=== PATIENT | male | born 1955 | race Caucasian/White ===

== ENCOUNTER → 2016-11-19 | Outpatient (CLI) | payer OTHER ==
[~2016-11-19] MED LIST: ALLO100T PO; ASPI81TA85 PO; CENT1TAB PO; DITR1TAB PO; FELO10TA PO; FISH5CAP PO; HYDR-3713 PO; LEVO50TA5 PO; LOSA100T37 PO; MAGN250T3 PO; PERC5TAB6 PO; SIMV10TA2 PO; TUMS500C PO; VITA-115 PO
--- NOTE | 2016-11-19 16:55 | REP ---
KUB: Single view: History: Kidney stones. Findings: There is a triangular 15 mm calculus projecting at the lower pole of the right kidney. A 4 mm calculus is seen projecting at the lower pole of the left kidney. These findings are unchanged. On the previous exam from 05/15/2016 there was a right ureteral stent. This has been removed. Psoas margins are intact. Bowel gas pattern is normal. Impression: Bilateral intrarenal nephrolithiasis. This includes a large triangular 15 mm calculus in the lower pole of the right kidney. Signed by Charly Schmidt MD 11/20/2016 08:16 A
== END ==
LOC: M SMT 15:31
PROVIDERS: ATTEND Urology
DX: N20.0 Calculus of kidney (principal)

== ENCOUNTER → 2017-02-11 | Outpatient (CLI) | payer OTHER ==
[~2017-02-11] MED LIST changes: +COUM2.5T17 PO; -LOSA100T37 PO; +LOSA100T5 PO; +METF500T13 PO; +PERC5TAB12 PO; -PERC5TAB6 PO; +WARF-23
[2017-02-11 10:02] LABS: INR 0.88; MEAN CORPUSCULAR HEMOGLOBIN 32.6 pg (27.0-33.0); MEAN CORPUSCULAR HGB CONC 36.1 g/dl (32.0-36.5); MEAN CORPUSCULAR VOLUME 90.3 fl (80.0-96.0); RED CELL DISTRIBUTION WIDTH 12.7 % (11.5-14.5); WHITE BLOOD COUNT 5.1 K/mm3 (4.0-10.0)
[2017-02-11 10:22] LABS: ALBUMIN 4.7 GM/DL (3.2-5.2); ALBUMIN/GLOBULIN RATIO 1.62 (1.00-1.93); ALKALINE PHOSPHATASE 103 U/L (45-117); ALT/SGPT 54 U/L (12-78); ANION GAP 13 MEQ/L (8-16); AST/SGOT 45 U/L (15-37); BILIRUBIN,TOTAL 0.9 MG/DL (0.2-1.0); BLOOD UREA NITROGEN 26 MG/DL (7-18); CALCIUM LEVEL 9.5 MG/DL (8.8-10.2); CARBON DIOXIDE LEVEL 25 MEQ/L (21-32); CHLORIDE LEVEL 101 MEQ/L (98-107); CREATININE FOR GFR 1.11 MG/DL (0.70-1.30); GLOMERULAR FILTRATION RATE > 60.0 (>49); GLUCOSE, FASTING 210 MG/DL (80-110); POTASSIUM SERUM 3.6 MEQ/L (3.5-5.1); SODIUM LEVEL 139 MEQ/L (136-145); TOTAL PROTEIN 7.6 GM/DL (6.4-8.2)
--- NOTE | 2017-02-11 10:59 | REP ---
PA and lateral chest: Comparison is 04/12/2016. The lung aguilera are clear. The cardiac size is normal The elizabeth, mediastinum, and bony thorax are unremarkable. Impression: Negative PA and lateral chest. There is no significant interval change. Signed by Daniel Boone MD 02/11/2017 10:50 A
--- NOTE | 2017-02-13 21:34 | ECGEPIP ---
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
== END ==
LOC: M ADMPAT 08:40
PROVIDERS: ATTEND Orthopaedic Surgery
DX: Z01.818 Encounter for other preprocedural examination (principal); M17.11 Unilateral primary osteoarthritis, right knee

== ENCOUNTER 2017-02-25 07:30 | Inpatient (IN) | payer OTHER ==
--- NOTE | 2017-02-21 13:21 | HPE ---
DATE OF ADMISSION: 02/25/2017 ATTENDING PHYSICIAN: Emiliano Sung MD ADMISSION DIAGNOSIS: Left knee pain and stiffness. HISTORY: This a pleasant 62-year-old male patient with progressively worsening left knee pain and stiffness, failed to improve with conservative management. He has pain with weightbearing activities and activities of daily living. He has elected for surgery for his continued symptoms. He has consented for a left total knee arthroplasty by Dr. Sung. X-rays of the left knee notable for end-stage degenerative changes of the left knee. Medical optimization with Carlos Santiago, not present for review today. ALLERGIES: No known drug allergies. CURRENT MEDICATIONS: - metformin 500 mg one tablet once per day - Zocor 10 mg one tablet once per day - levothyroxine 50 mcg one tablet once per day - felodipine 10 mg one tablet once per day - allopurinol 100 mg one tablet three times a day - losartan/hydrochlorothiazide 10/25 mg one tablet once per day MEDICAL HISTORY: Includes: 1. Osteoarthritis of both knees. 2. Hypertension. 3. Elevated cholesterol. 4. Yrg-tsinxuj-enoovjxwq diabetes. 5. Hypothyroidism. 6. Gout. PAST SURGERIES: Includes: 1. Hernia repair. 2. Colonoscopy. REVIEW OF SYSTEMS: Denies fever or chills. Denies chest pain, shortness of breath or cough. Denies difficulty breathing. Denies abdominal pain. Denies nausea or vomiting. He has persistent pain with weightbearing activities and activities of daily living. Denies recent upper respiratory infection (URI) or urinary tract infection (UTI) symptoms. FAMILY HISTORY: History of diabetes, hypertension, cancer, heart disease and arthritis. SOCIAL HISTORY: : He denies smoking. He rarely uses alcohol. PHYSICAL EXAMINATION: Physical exam today reveals a well-nourished, well-developed alert male patient who walks with a limp in gait, favoring his left side. Exam of the left knee does reveal tenderness over both the medial and lateral joint lines. Patellar grind is irritable. Range of motion is 5 to 95 degrees. The calf is soft, nontender to palpation. He can sensate light touch. No irritability with hip range of motion. Neck is supple without adenopathy or JVD. Lungs are clear to auscultation without rales or wheeze. Heart regular rate and rhythm. Abdomen bowel sounds are present. Current Vital signs: Blood pressure 138/96, pulse 76, respirations 16, height 6 feet 1 inch, weight 296 pounds, temperature 96.1. LABORATORY DATA: WBC count of 5.1, RBC count 5.2, hemoglobin 17.1, hematocrit 47.4, PT 12.0, INR 0.88, sed rate 1. Urinalysis within normal limits. Nasal culture normal laureen. Urine culture no growth. Glucose 210, BUN 26, creatinine 1.11, sodium 139, potassium 3.6. Chest x-ray no acute cardiopulmonary disease process noted. EKG sinus rhythm. IMPRESSION: Symptomatic osteoarthritis of his left knee. PLAN: Consented for left total knee arthroplasty by Dr. Sung.
[~2017-02-25] VITALS: Ht 188 cm; Wt 131.5 kg
[~2017-02-25 07:30] MED LIST changes: -COUM2.5T17 PO; -WARF-23
[2017-02-25] MEDS ORDERED: LR 1,000 ML IV SCH ×2 (09:45→14:45)
[2017-02-25] MEDS ORDERED: LR 1,000 ML IV ONE (09:45)
[2017-02-25] MEDS ORDERED: WARF-23 (10:14)
[2017-02-25] MEDS ORDERED: MIDAZOLAM INJ 2 MG/2 ML VIAL (J2250) As Ordered ONE ×2 (10:53→13:04)
[2017-02-25] MEDS ORDERED: fentaNYL 100 MCG/2 ML INJECTION (J3010) As Ordered ONE (10:53)
[2017-02-25] MEDS ORDERED: TRANEXAMIC ACID 100 MG/ML 10ML VIAL As Ordered ONE (12:00)
[2017-02-25] MEDS ORDERED: MIDAZOLAM INJ 2 MG/2 ML VIAL (J2250) IV PRN (12:00)
[2017-02-25] MEDS ORDERED: fentaNYL 100 MCG/2 ML INJECTION (J3010) IV PRN ×2 (12:00→14:45)
[2017-02-25] MEDS ORDERED: EPINEPHrine INJ 1 MG/ML 1ML AMP As Ordered ONE (12:01)
[2017-02-25] MEDS ORDERED: ceFAZolin 1GM INJ (J0690) As Ordered ONE (12:01)
[2017-02-25] MEDS ORDERED: BUPIVACAINE LIPOSOME/PF 1.3% 20 ML VIAL (13.3MG/ML)(EXPAREL) As Ordered ONE (12:14)
--- NOTE | 2017-02-25 12:14 | IPN ---
DATE: 02/25/2017 Patient seen and examined. He wished to go ahead with a left knee replacement. That is the one that is bothering him more. He initially had signed up for the right knee, but we switched this over and changed the consent and actually had him sign a new consent today for the left. He understands the nature of procedure. The risks of bleeding, infection, damage to nerves, vessels, persistent pain, wear loosening, blood clots, medical problems, , among others. We may be able to get away with a cruciate retaining knee because this is a varus knee where as his other knee is valgus as I recall, and I was planning on a posterior stabilize for his right knee, but I think on the left knee I might try to get a posterior stabilized if we can, otherwise we can certainly do the cruciate sacrificing.
[2017-02-25] MEDS ORDERED: dexameTHASONE 10 MG/1 ML VIAL PRES.FREE (J1100) ONE (13:18)
[2017-02-25] MEDS ORDERED: ROPIvacaine 0.5% 30 ML INJECTION (J2795) ONE (13:18)
[2017-02-25] MEDS ORDERED: PROPOFOL 200 MG/20 ML VIAL As Ordered ONE (13:52)
[2017-02-25] MEDS ORDERED: LIDOCAINE 2% INJ 100 MG/5 ML SDV (FOR ANES.) As Ordered ONE (13:52)
[2017-02-25] MEDS ORDERED: ePHEDrine SULFATE 25 MG/5 ML(5MG/ML) SYRINGE As Ordered ONE (14:04)
[2017-02-25] MEDS ORDERED: ONDANSETRON 4MG/2ML VIAL (J2405) As Ordered ONE (14:04)
[2017-02-25] MEDS ORDERED: dexameTHASONE 4 MG/ML 1ML VIAL (J1100) As Ordered ONE (14:05)
[2017-02-25] MEDS ORDERED: EPIDURAL/PCA KEYS XX PRN (14:45)
[2017-02-25] MEDS ORDERED: PERCOCET 5MG/325MG TAB PO PRN (14:45)
[2017-02-25] MEDS ORDERED: ACETAMINOPHEN TAB 650MG DOSE (2X325MG) PO PRN (14:45)
[2017-02-25] MEDS: LR 1,000 ML IV SCH (14:45)
[2017-02-25] MEDS ORDERED: NALBUPHINE HCL 10 MG/ML AMP (J2300) IV PRN (14:45)
[2017-02-25] MEDS ORDERED: FLEET ENEMA PR PRN (14:45)
[2017-02-25] MEDS ORDERED: MORPHINE 2 MG/ML 1ML SYRINGE IV PRN (14:45)
[2017-02-25] MEDS ORDERED: METOCLOPRAMIDE INJ 10MG/2ML VIAL (J2765) IV PRN (14:45)
[2017-02-25] MEDS ORDERED: MORPHINE 1MG/ML IN 0.9% NACL 100ML IV BAG IV PRN (14:45)
[2017-02-25] MEDS ORDERED: ONDANSETRON 4MG/2ML VIAL (J2405) IV PRN ×3 (14:45)
[2017-02-25] MEDS ORDERED: diphenhydrAMINE INJ 50MG/ML VIAL (J1200) IV PRN (14:45)
[2017-02-25] MEDS ORDERED: NALOXONE INJ 0.4 MG/1 ML VIAL (J2310) IV PRN (14:45)
[2017-02-25] MEDS ORDERED: WARFARIN SOD 5 MG TAB PO ONE (17:00)
--- NOTE | 2017-02-25 17:09 | IPNPDOC ---
Subjective Date Seen The patient was seen on 02/25/17. Subjective Chief Complaint/HPI The patient is a 62-year-old male admitted with a reason for visit of Left Knee Arthritis. Events since last encounter Feeling well, eating dinner, no complaint of chest pain or shortness of breath Objective Physical Examination General Exam: Positive: Alert, Cooperative, No Acute Distress Chest Exam: Positive: Clear to auscultation Heart Exam: Positive: Rate Normal Abdomen Exam: Positive: BS Hypoactive, Soft, Negative: Tenderness Extremity Exam: Negative: Edema Assessment /Plan Problems (1) Arthralgia of knee Problem Text: pain management, dvt prophylaxis, gi regimen, activity, discharge per ortho (2) Diabetes Problem Text: insulin in hospital, was on metformin at home (3) HTN (hypertension) Problem Text: withholding antihypertensives in post op setting (4) CKD (chronic kidney disease) Problem Specific Plan: Repeat Labs (5) Gout Status: Chronic (6) Hypothyroid Status: Chronic Plan/VTE VTE Prophylaxis Ordered?: Yes VS, I&O, 24H, Fishbone Vital Signs/I&O Vital Signs Date Time Temp Pulse Resp B/P (MAP) Pulse Ox O2 Delivery O2 Flow Rate FiO2 02/25/17 15:06 97.3 69 16 143/86 (105) 95 Room Air 02/25/17 11:45 3 Laboratory Data 24H LABS Laboratory Tests 2 02/25/17 10:08: Bedside Glucose (Misc Panel) 207H 02/25/17 14:33: Bedside Glucose (Misc Panel) 196H CBC/BMP Laboratory Tests 02/25/17 09:48 DONI FISHER MD Feb 25, 2017 17:09
[2017-02-25] MEDS: ALLOPURINOL 100 MG TAB PO SCH ×2 (18:16→21:09)
[2017-02-25] MEDS: SIMVASTATIN 10 MG TAB PO SCH (21:09)
[2017-02-25] MEDS: LEVOTHYROXINE 50MCG TABLET (0.05MG) PO SCH (21:09)
[2017-02-26 02:00] VITALS: BP 143/88
[2017-02-26] MEDS: LR 1,000 ML IV SCH (04:05)
[2017-02-26 06:00] VITALS: BP 143/84
[2017-02-26] MEDS ORDERED: ONDANSETRON 4 MG TAB (S0181) PO PRN (06:45)
[2017-02-26] MEDS ORDERED: PERCOCET 5MG/325MG TAB PO PRN (06:45)
[2017-02-26 06:54] LABS: INR 1.14
[2017-02-26 06:55] LABS: MEAN CORPUSCULAR HEMOGLOBIN 32.8 pg (27.0-33.0); MEAN CORPUSCULAR HGB CONC 35.9 g/dl (32.0-36.5); MEAN CORPUSCULAR VOLUME 91.3 fl (80.0-96.0); RED CELL DISTRIBUTION WIDTH 12.9 % (11.5-14.5); WHITE BLOOD COUNT 10.2 K/mm3 (4.0-10.0)
[2017-02-26 06:59] LABS: ANION GAP 13 MEQ/L (8-16); BLOOD UREA NITROGEN 25 MG/DL (7-18); CALCIUM LEVEL 7.8 MG/DL (8.8-10.2); CARBON DIOXIDE LEVEL 24 MEQ/L (21-32); CHLORIDE LEVEL 107 MEQ/L (98-107); CREATININE FOR GFR 1.21 MG/DL (0.70-1.30); GLOMERULAR FILTRATION RATE > 60.0 (>49); GLUCOSE, FASTING 220 MG/DL (80-110); POTASSIUM SERUM 4.1 MEQ/L (3.5-5.1); SODIUM LEVEL 144 MEQ/L (136-145)
[2017-02-26] MEDS: MOM 30ML SUSPENSION UDC PO SCH (07:48)
[2017-02-26] MEDS: MIRALAX *UNIT DOSE* 17GM PACKET PO SCH (07:48)
[2017-02-26] MEDS: SENOKOT S TAB PO SCH ×2 (07:49→21:43)
[2017-02-26] MEDS: ALLOPURINOL 100 MG TAB PO SCH ×3 (07:49→21:43)
[2017-02-26] MEDS: PERCOCET 5MG/325MG TAB PO PRN ×4 (07:50→21:46)
[2017-02-26 08:00] VITALS: O2SAT 98
--- NOTE | 2017-02-26 10:14 | IPNPDOC ---
Subjective Date Seen The patient was seen on 02/26/17. Subjective Chief Complaint/HPI The patient is a 62-year-old male admitted with a reason for visit of Left Knee Arthritis. Events since last encounter no complaints this am , did have some episodes of apnea with hypoxia last night so was put on oxygen , also had urinary retension requiring straight cath but now able to void spontaneously , no chest pain , no abdominal pain , no nausea or vomiting Objective Physical Examination General Exam: Positive: Alert, Cooperative, No Acute Distress Chest Exam: Positive: Clear to auscultation Heart Exam: Positive: Rate Normal Abdomen Exam: Positive: BS Hypoactive, Soft, Negative: Tenderness Extremity Exam: Negative: Edema Assessment /Plan Problems (1) S/P total knee arthroplasty Status: Acute Problem Text: left knee arthroplasty for advanced osteoarthritis. pain management, dvt prophylaxis, gi regimen, activity, discharge per ortho (2) Diabetes Status: Chronic Problem Text: insulin in hospital, was on metformin at home (3) HTN (hypertension) Status: Chronic Problem Text: withholding antihypertensives in post op setting will start on amlodipine with hold parameters. (4) CKD (chronic kidney disease) Status: Chronic Problem Specific Plan: Repeat Labs (5) Gout Status: Chronic (6) Hypothyroid Status: Chronic Plan/VTE VTE Prophylaxis Ordered?: Yes VS, I&O, 24H, [facility] Vital Signs/I&O Vital Signs Date Time Temp Pulse Resp B/P (MAP) Pulse Ox O2 Delivery O2 Flow Rate FiO2 02/26/17 08:21 18 02/26/17 06:00 96.9 69 143/84 (103) 98 Nasal Cannula 2.0 I&O- Last 24 Hours up to 6 AM 02/26/17 06:00 Intake Total 2650 ml Output Total 3250 ml Balance -600 ml Laboratory Data 24H LABS Laboratory Tests 2 02/25/17 10:08: Bedside Glucose (Misc Panel) 207H 02/25/17 14:33: Bedside Glucose (Misc Panel) 196H 02/26/17 06:27: Prothrombin Time 14.8H, Prothromb Time International Ratio 1.14, Anion Gap 13, Glomerular Filtration Rate > 60.0, Blood Urea Nitrogen 25H, Creatinine 1.21, Sodium Level 144, Potassium Level 4.1, Chloride Level 107, Carbon Dioxide Level 24, Calcium Level 7.8L CBC/BMP Laboratory Tests 02/26/17 06:27 Red Blood Count 4.14 L, Mean Corpuscular Volume 91.3, Mean Corpuscular Hemoglobin 32.8, Mean Corpuscular Hemoglobin Concent 35.9, Red Cell Distribution Width 12.9, Calcium Level 7.8 L AKHIL MCMILLAN MD Feb 26, 2017 10:14
[2017-02-26] MEDS: amLODIPine 10 MG TAB PO SCH (10:27)
--- NOTE | 2017-02-26 10:34 | REP ---
AP, LATERAL, BILATERAL LEFT KNEE: HISTORY: Knee replacement. COMPARISON: 11/18/2015. The patient is status post left total knee replacement. There is no acute fracture or dislocation. A small amount of air and surgical iris are present in the overlying soft tissue. IMPRESSION: The patient is status post left total knee replacement. There is anatomic alignment. Signed by Don Murphy MD 02/26/2017 11:29 A
[2017-02-26 14:00] VITALS: BP 130/74
[2017-02-26] MEDS ORDERED: WARFARIN SOD 5 MG TAB PO ONE (17:00)
--- NOTE | 2017-02-26 20:40 | RO ---
DATE OF PROCEDURE: 02/25/2017 PREOPERATIVE DIAGNOSIS: Left knee osteoarthritis. POSTOPERATIVE DIAGNOSIS: Left knee osteoarthritis. PROCEDURE: Left total knee arthroplasty using a PFC rotating platform, cruciate retaining size 5 femur, size 5 tibia, 10 polyethylene, 38 patellar button. SURGEON: Dr. Emiliano Sung DRIVER GUIDE: Joe Collins ANESTHESIA: Spinal with block. ESTIMATED BLOOD LOSS: Less than 50 mL. COMPLICATIONS: None. INDICATIONS: A 62-year-old gentleman who has had some persistent left knee pain with severe arthritis. He had failed conservative management and wished to go ahead with surgical treatment. He understood the nature of this, the risks of bleeding, infection, damage to nerves, vessels, persistent pain, wear, loosening, blood clots, medical problems, among others. DESCRIPTION OF PROCEDURE: The patient was taken to the operating room, placed in supine position after spinal anesthesia was induced. The left lower extremity was prepped and draped in the usual sterile fashion. Tourniquet was inflated after a time-out was performed. I then created a longitudinal incision over the anterior aspect of the knee and sharp dissection was carried down through subcutaneous tissue. I performed a medial parapatellar arthrotomy per routine, removed most of the fat pad for visualization. I did a medial release, flexed the knee up, used the canal initiating reamer on the femoral side, followed by the intramedullary guide set at 5 and 10. This was pinned in place by the assistant laboratory director. The distal femoral cut was made by the assistant laboratory director under my direct supervision, and the soft tissue was protected with retractors. We sized the femur to be a 5 and removed any osteophytes and made the remaining cuts after pinning and the external rotation guide and the size 5 cutting block. Tibia was then prepared. The 3-degree block was placed, and the guide was placed in appropriate amount of valgus and posterior slope and I secured this in place, removed 4 mm off the low side, which was 10 off the high side. The cutting block was held in place. I ended up using the hemiblock and made this proximal tibia cut. The soft tissue was removed from both sides the knee and posterior osteophytes. I prepared the tibia with a size 5 tray which fit appropriately. I drilled and broached and then placed the trial polyethylene. I had also prior to this used the spacer blocks and felt that a size 10 was the most appropriate size for the polyethylene. The trial femur was inserted and secured down nicely, and I put the knee through a range of motion with the 10 polyethylene and was very pleased with the alignment and position and stability and soft tissue balance. I then freehand cut the patella, which had severe arthritis. There was severe arthritis throughout the knee with [id number] contact in the medial and patellofemoral compartments. The patella was quite misshapen, but I freehand cut this, sized to be a 38, drilled the holes and put the trial polyethylene button on and then put the knee through a range of motion and patella tracked very nicely. The drill holes were placed in the end of femur. The assistant laboratory director prepared the bone cement in the modern technique. I then irrigated bony surfaces and dried them carefully, dried the tibial surface, cemented on the tibial tray, removed excess bone cement, placed the 10 by size 5 polyethylene, impacted on the femoral component after placing cement on the femur and removed excess bone cement, cemented on the patella, held it in place with a clamp and, of course, removed all excess bone cement. I then irrigated copiously. I placed some Exparel in the usual fashion around the knee, around the periosteum and through the capsule. I had placed some on the back of the knee prior to prosthesis placement. A total of 20 mL of Exparel was used, which had been diluted in saline. Copious irrigation was performed as it had multiple times prior to this and the TXA solution was placed. I closed the deep layer was some interrupted #1 Vicryl sutures followed by two Stratafix sutures working in opposite directions, which obtained a watertight closure. Irrigated, closed the subcu with #2-0 Vicryl and the skin with iris. Sterile dressing was applied. Tourniquet was deflated, and he was taken to recovery room in stable condition. There were no known complications. The plan be routine postop. The assistant laboratory director was instrumental in holding retractors and mixing the bone cement and assisting in wound closure. Of note is that there was a longitudinal-shaped osteophyte inferior to the patella which was mobile and within the patellar tendon that at the end of the case I elected to remove because I felt this might have been a pain generator for him, so I dissected around it using a cautery, removed this free floating bone fragment, which was probably 2 cm in length, and then reapproximated the patellar tendon with #1 and #2-0 Vicryl. Plan will be routine postoperative.
[2017-02-26] MEDS: SIMVASTATIN 10 MG TAB PO SCH (21:43)
[2017-02-26] MEDS: LEVOTHYROXINE 50MCG TABLET (0.05MG) PO SCH (21:43)
[2017-02-26 22:00] VITALS: BP 148/73
[2017-02-27 06:00] VITALS: BP 162/78
[2017-02-27 06:47] LABS: MEAN CORPUSCULAR HEMOGLOBIN 33.2 pg (27.0-33.0); MEAN CORPUSCULAR HGB CONC 36.4 g/dl (32.0-36.5); MEAN CORPUSCULAR VOLUME 91.3 fl (80.0-96.0); WHITE BLOOD COUNT 6.5 K/mm3 (4.0-10.0)
[2017-02-27 06:57] LABS: INR 1.38
[2017-02-27 07:33] LABS: ANION GAP 7 MEQ/L (8-16); BLOOD UREA NITROGEN 23 MG/DL (7-18); CALCIUM LEVEL 7.8 MG/DL (8.8-10.2); CARBON DIOXIDE LEVEL 29 MEQ/L (21-32); CHLORIDE LEVEL 105 MEQ/L (98-107); CREATININE FOR GFR 0.96 MG/DL (0.70-1.30); GLOMERULAR FILTRATION RATE > 60.0 (>49); GLUCOSE, FASTING 204 MG/DL (80-110); SODIUM LEVEL 141 MEQ/L (136-145)
[2017-02-27 08:12] VITALS: BP 162/78
[2017-02-27] MEDS: SENOKOT S TAB PO SCH (08:12)
[2017-02-27] MEDS: MOM 30ML SUSPENSION UDC PO SCH (08:12)
[2017-02-27] MEDS: amLODIPine 10 MG TAB PO SCH (08:12)
[2017-02-27] MEDS: MIRALAX *UNIT DOSE* 17GM PACKET PO SCH (08:12)
[2017-02-27] MEDS: PERCOCET 5MG/325MG TAB PO PRN ×2 (08:13→12:05)
[2017-02-27] MEDS: ALLOPURINOL 100 MG TAB PO SCH (08:13)
[2017-02-27] MEDS ORDERED: PERC5TAB12 PO (08:40)
[2017-02-27] MEDS ORDERED: COUM2.5T17 PO (08:40)
[2017-02-27 09:47] VITALS: O2SAT 98
--- NOTE | 2017-02-27 11:13 | IPNPDOC ---
Subjective Date Seen The patient was seen on 02/27/17. Subjective Chief Complaint/HPI The patient is a 62-year-old male admitted with a reason for visit of Left Knee Arthritis. Events since last encounter Patient did not have any complaints this am . did not need any oxygen overnight. no chest pain or cough , no abdominal pain , no nausea or vomiting. Objective Physical Examination General Exam: Positive: Alert, Cooperative, No Acute Distress Chest Exam: Positive: Clear to auscultation Heart Exam: Positive: Rate Normal Abdomen Exam: Positive: BS Hypoactive, Soft, Negative: Tenderness Extremity Exam: Negative: Edema Assessment /Plan Problems (1) S/P total knee arthroplasty Status: Acute Problem Text: left knee arthroplasty for advanced osteoarthritis. pain management, dvt prophylaxis, gi regimen, activity, discharge per ortho (2) Diabetes Status: Chronic Problem Text: insulin in hospital, was on metformin at home (3) HTN (hypertension) Status: Chronic Problem Text: withholding antihypertensives in post op setting will start on amlodipine with hold parameters. (4) CKD (chronic kidney disease) Status: Chronic Problem Specific Plan: Repeat Labs (5) Gout Status: Chronic (6) Hypothyroid Status: Chronic Plan/VTE VTE Prophylaxis Ordered?: Yes VS, I&O, 24H, Fishbone Vital Signs/I&O Vital Signs Date Time Temp Pulse Resp B/P (MAP) Pulse Ox O2 Delivery O2 Flow Rate FiO2 02/27/17 09:47 98 Room Air 02/27/17 08:43 14 02/27/17 08:12 60 162/78 02/27/17 06:00 97.7 02/26/17 06:00 2.0 I&O- Last 24 Hours up to 6 AM 02/27/17 05:59 Intake Total 2190 ml Output Total 1950 ml Balance 240 ml Laboratory Data 24H LABS Laboratory Tests 2 02/26/17 11:56: Bedside Glucose (Misc Panel) 270H 02/26/17 20:50: Bedside Glucose (Misc Panel) 287H 02/27/17 06:11: Anion Gap 7L, Glomerular Filtration Rate > 60.0, Blood Urea Nitrogen 23H, Creatinine 0.96, Sodium Level 141, Potassium Level 4.0, Chloride Level 105, Carbon Dioxide Level 29, Calcium Level 7.8L 02/27/17 06:18: Prothrombin Time 17.3H, Prothromb Time International Ratio 1.38 CBC/BMP Laboratory Tests 02/27/17 06:11 Calcium Level 7.8 L 02/27/17 06:18 Red Blood Count 3.78 L, Mean Corpuscular Volume 91.3, Mean Corpuscular Hemoglobin 33.2 H, Mean Corpuscular Hemoglobin Concent 36.4, Red Cell Distribution Width 13.0 AKHIL MCMILLAN MD Feb 27, 2017 11:13
--- NOTE | 2017-03-02 12:10 | DSES ---
DATE OF ADMISSION: 02/25/2017 DATE OF DISCHARGE: 02/27/2017 ATTENDING PHYSICIAN: Dr. Emiliano Sung ADMITTING DIAGNOSIS: Left knee osteoarthritis. OTHER DIAGNOSES: 1. Hypertension. 2. Hyperlipidemia. 3. Ozf-vjkmlfq-lwnquvbqi diabetes. 4. Hypothyroidism. 5. Gout. DISCHARGE DIAGNOSIS: Left knee osteoarthritis, status post left total knee arthroplasty. HISTORY: The patient is a 62-year-old male with progressively worsening left knee pain and stiffness. He failed to improve with conservative measures, so he consented for an elective left total knee arthroplasty with Dr. Sung. OPERATION PERFORMED: Left total knee arthroplasty. HOSPITAL COURSE: The patient underwent a left total knee arthroplasty under spinal anesthesia with femoral nerve block. Surgery was uneventful and his hospital course was without complication. He was up with physical therapy per their protocol, weightbearing as tolerated on the left lower extremity. He was discharged on oral pain medications, and will resume his preoperative medications and diet. The patient will take his Coumadin and use his thromboembolic deterrent stockings for 30 days postoperatively to prevent deep venous thrombosis. He will followup in our office in 12-14 days for a wound check and staple removal. He is encouraged to contact our office sooner if there is any increased pain, drainage, redness, numbness and tingling in the extremity, fever greater than 101 degrees or any other further concerns. Please see medical record for additional details. DELON
== END 2017-02-27 13:35 | disposition home health service (06) | DRG 302 ==
LOC: M OR 09:33 → M MS5PR 15:20
PROVIDERS: ADMIT Orthopaedic Surgery; ATTEND Orthopaedic Surgery
PROC: 0SRD0J9 Replacement of Left Knee Joint with Synthetic Substitute, Cemented, Open Approach (ICD-10-PCS; principal; 2017-02-25 11:45)
DX: M17.12 Unilateral primary osteoarthritis, left knee (principal); I13.10 Hypertensive heart and chronic kidney disease without heart failure, with stage 1 through stage 4 chronic kidney disease, or unspecified chronic kidney disease; E78.00 Pure hypercholesterolemia, unspecified; E11.9 Type 2 diabetes mellitus without complications; N18.9 Chronic kidney disease, unspecified; E03.9 Hypothyroidism, unspecified; M10.9 Gout, unspecified; Z79.899 Other long term (current) drug therapy; Z83.3 Family history of diabetes mellitus; Z82.49 Family history of ischemic heart disease and other diseases of the circulatory system; Z80.9 Family history of malignant neoplasm, unspecified; Z82.61 Family history of arthritis; Z79.84 Long term (current) use of oral hypoglycemic drugs

== ENCOUNTER → 2017-03-03 | Outpatient (REF) | payer OTHER ==
[~2017-03-03] MED LIST changes: +COUM2.5T17 PO; +WARF-23
[2017-03-03 14:24] LABS: INR 1.64
== END ==
LOC: M LAB REF 14:11
PROVIDERS: ATTEND Nurse Practitioner Family
DX: Z51.81 Encounter for therapeutic drug level monitoring (principal); Z79.01 Long term (current) use of anticoagulants

== ENCOUNTER → 2017-03-07 | Outpatient (REF) | payer OTHER ==
[2017-03-07 15:30] LABS: INR 2.25
== END ==
LOC: M LAB REF 13:00
PROVIDERS: ATTEND Nurse Practitioner Family
DX: Z79.01 Long term (current) use of anticoagulants (principal)

== ENCOUNTER → 2017-03-14 | Outpatient (REF) | payer OTHER ==
[2017-03-14 14:59] LABS: INR 1.58
== END ==
LOC: M LABDRAW1 12:18
PROVIDERS: ATTEND Orthopaedic Surgery
DX: Z79.01 Long term (current) use of anticoagulants (principal)

== ENCOUNTER → 2017-06-11 | Outpatient (CLI) | payer OTHER ==
--- NOTE | 2017-06-14 14:47 | SLEEPHOME ---
DATE OF PROCEDURE: 06/11/2017 REFERRING PHYSICIAN: Dr. Sung. INTERPRETATION: Nocturnal diagnostic home sleep testing was performed due to concern for the obstructive sleep apnea syndrome in this patient with excessive somnolence and nonrestorative sleep who has comorbidities of hypertension, diabetes, hypothyroidism and gout. For testing, an NOX-T3 respiratory monitoring device was used. Continuous record was made of pulse, oxygen saturation, airflow, chest and abdominal strain and body position. 9 hours and 59 minutes of data were reviewed. Of these, 8 hours and 53 minutes were marked as time in bed. During the interval marked time in bed, there were 167 respiratory events identified of 10 seconds in duration or greater for a respiratory event index of 18.8. The events were primarily obstructive. Baseline pulse rate 61, pulse rate ranged 48-101. Baseline saturation 93%. Lowest oxygen saturation 82%. Testing was performed in both the supine and non-supine positions. IMPRESSION: Abnormal home sleep testing with repetitive respiratory events and oxygen desaturations to 82% with a respiratory event index of 18.8 is consistent with the obstructive sleep apnea syndrome. RECOMMENDATION: The patient should encouraged to undergo formal sleep evaluation and in-laboratory pressure titration.
== END ==
LOC: M SLEEP HO 14:17
PROVIDERS: ATTEND Nurse Practitioner Adult Health
DX: G47.30 Sleep apnea, unspecified (principal)

== ENCOUNTER → 2017-11-01 | Outpatient (CLI) | payer OTHER ==
[2017-11-01 12:57] LABS: APPEARANCE, URINE CLEAR (CLEAR); BACTERIA, URINE AUTO NEGATIVE (NEGATIVE); BILIRUBIN, URINE AUTO NEGATIVE (NEGATIVE); BLOOD, URINE BLOOD 1+ (NEGATIVE); COLOR, URINE YELLOW (YELLOW); GLUCOSE, URINE (UA) AUTO 1+ mg/dL (NEGATIVE); KETONE, URINE AUTO NEGATIVE (NEGATIVE); LEUKOCYTE ESTERASE, URINE AUTO NEGATIVE (NEGATIVE); MUCUS, URINE SMALL (NEGATIVE); NITRITE, URINE AUTO NEGATIVE (NEGATIVE); PROTEIN, URINE AUTO NEGATIVE (NEGATIVE); RBC, URINE AUTO 14 /HPF (0-3); SPECIFIC GRAVITY URINE AUTO 1.028 (1.002-1.035); SQUAMOUS EPITHELIAL CELL UR AU 0 /HPF (0-6); UROBILINOGEN, URINE AUTO 0.2 mg/dL (0.0-2.0); WBC, URINE AUTO 1 /HPF (0-3)
[2017-11-01 13:07] LABS: HEMATOCRIT 42.9 % (42.0-52.0); HEMOGLOBIN 15.5 g/dl (13.5-17.5); MEAN CORPUSCULAR HEMOGLOBIN 31.3 pg (27.0-33.0); MEAN CORPUSCULAR HGB CONC 36.1 g/dl (32.0-36.5); MEAN CORPUSCULAR VOLUME 86.7 fl (80.0-96.0); PLATELET COUNT, AUTOMATED 131 10^3/uL (150-450); RED BLOOD COUNT 4.95 10^6/uL (4.30-6.10); RED CELL DISTRIBUTION WIDTH 12.2 % (11.5-14.5); WHITE BLOOD COUNT 5.2 10^3/uL (4.0-10.0)
[2017-11-01 13:17] LABS: INR 0.97
[2017-11-01 13:31] LABS: ERYTHROCYTE SEDIMENTATION RATE 2 mm/hr (0-20)
[2017-11-01 13:34] LABS: ALBUMIN 4.5 GM/DL (3.2-5.2); ALBUMIN/GLOBULIN RATIO 1.41 (1.00-1.93); ALKALINE PHOSPHATASE 98 U/L (45-117); ALT/SGPT 50 U/L (12-78); ANION GAP 8 MEQ/L (8-16); AST/SGOT 46 U/L (7-37); BILIRUBIN,TOTAL 0.9 MG/DL (0.2-1.0); BLOOD UREA NITROGEN 22 MG/DL (7-18); CALCIUM LEVEL 9.5 MG/DL (8.8-10.2); CARBON DIOXIDE LEVEL 28 MEQ/L (21-32); CHLORIDE LEVEL 103 MEQ/L (98-107); CREATININE FOR GFR 1.05 MG/DL (0.70-1.30); GLOMERULAR FILTRATION RATE > 60.0 (>49); GLUCOSE, FASTING 195 MG/DL (70-100); POTASSIUM SERUM 3.5 MEQ/L (3.5-5.1); SODIUM LEVEL 139 MEQ/L (136-145); TOTAL PROTEIN 7.7 GM/DL (6.4-8.2)
== END ==
LOC: M ADMPAT 11:00
DX: Z01.818 Encounter for other preprocedural examination (principal); M17.11 Unilateral primary osteoarthritis, right knee
CPT/HCPCS: 71046

== ENCOUNTER 2017-11-18 06:50 | Inpatient (IN) | payer OTHER ==
[2017-11-18] MEDS: LR 1,000 ML IV ×3 (07:29→11:30)
[2017-11-18] MEDS: LIDOCAINE 1% MDV 20ML VIAL SQ (07:29)
[2017-11-18] MEDS ORDERED: fentaNYL 100 MCG/2 ML INJECTION (J3010) As Ordered ×2 (07:50→09:43)
[2017-11-18] MEDS ORDERED: MIDAZOLAM INJ 2 MG/2 ML VIAL (J2250) As Ordered ×2 (07:50→09:43)
[2017-11-18] MEDS ORDERED: EPINEPHrine INJ 1 MG/ML 1ML AMP As Ordered (07:52)
[2017-11-18 07:53] LABS: GLUCOSE, FASTING 210 MG/DL (70-100)
[2017-11-18] MEDS: MIDAZOLAM INJ 2 MG/2 ML VIAL (J2250) IV (08:17)
[2017-11-18] MEDS: fentaNYL 100 MCG/2 ML INJECTION (J3010) IV (08:17)
[2017-11-18] MEDS: ceFAZolin SOD 1 GM in D5W MINI-BAG PLUS 50 ML IV ×2 (09:20→16:57)
[2017-11-18] MEDS ORDERED: dexameTHASONE 10 MG/1 ML VIAL PRES.FREE (J1100) (09:29)
[2017-11-18] MEDS ORDERED: ROPIvacaine 0.5% 30 ML INJECTION (J2795 PER 1MG) (09:29)
[2017-11-18] MEDS ORDERED: EPINEPHrine INJ 1 MG/ML 1ML AMP (09:29)
[2017-11-18] MEDS ORDERED: LIDOCAINE 2% INJ 100 MG/5 ML SDV (FOR ANES.) As Ordered (09:43)
[2017-11-18] MEDS ORDERED: PROPOFOL 500 MG/50 ML VIAL As Ordered (09:43)
[2017-11-18] MEDS ORDERED: ONDANSETRON 4MG/2ML VIAL (J2405) As Ordered (09:43)
[2017-11-18] MEDS ORDERED: PROPOFOL 200 MG/20 ML VIAL As Ordered ×2 (09:51)
[2017-11-18] MEDS: EPINEPHrine INJ 1 MG/ML 1ML AMP As Ordered (09:57)
[2017-11-18] MEDS: TRANEXAMIC ACID 100 MG/ML 10ML VIAL As Ordered (09:57)
[2017-11-18] MEDS: BUPIVACAINE LIPOSOME/PF 1.3% 20 ML VIAL (13.3MG/ML)(EXPAREL) As Ordered (09:59)
[2017-11-18] MEDS: ceFAZolin 1GM INJ (J0690 PER 500MG) As Ordered (09:59)
[2017-11-18] MEDS: MORPHINE 1MG/ML IN 0.9% NACL 100ML IV BAG IV (11:00)
[2017-11-18] MEDS ORDERED: MORPHINE 1MG/ML IN 0.9% NACL 100ML IV BAG As Ordered (11:09)
[2017-11-18] MEDS ORDERED: ONDANSETRON 4MG/2ML VIAL (J2405) IV ×2 (11:30→11:45)
[2017-11-18] MEDS ORDERED: ACETAMINOPHEN TAB 650MG DOSE (2X325MG) PO (11:30)
[2017-11-18] MEDS ORDERED: FLEET ENEMA PR (11:30)
[2017-11-18] MEDS ORDERED: fentaNYL 100 MCG/2 ML INJECTION (J3010) IV (11:30)
[2017-11-18] MEDS ORDERED: NALOXONE INJ 0.4 MG/1 ML VIAL (J2310) IV (11:45)
[2017-11-18] MEDS ORDERED: NALBUPHINE HCL 10 MG/ML AMP (J2300) IV (11:45)
[2017-11-18] MEDS ORDERED: diphenhydrAMINE INJ 50MG/ML VIAL (J1200) IV (11:45)
[2017-11-18] MEDS ORDERED: EPIDURAL/PCA KEYS XX (11:45)
[2017-11-18] MEDS: HumaLOG INSULIN (NovoLOG) PER UNIT SC ×3 (12:00→21:00)
[2017-11-18] MEDS ORDERED: DEXTROSE 50% 50 ML SYRINGE IV (12:45)
[2017-11-18] MEDS ORDERED: GLUCOSE 4 GM CHEW TABLET PO (12:45)
[2017-11-18] MEDS ORDERED: GLUCAGON FOR INJ 1 MG VIAL (J1610) SC (12:45)
[2017-11-18] MEDS: amLODIPine 10 MG TAB PO (13:49)
[2017-11-18] MEDS: ALLOPURINOL 100 MG TAB PO ×2 (15:55→20:28)
[2017-11-18] MEDS: WARFARIN SOD 5 MG TAB PO (15:55)
[2017-11-18 16:56] LABS: BEDSIDE GLUCOSE 312 MG/DL (80-115)
[2017-11-18 20:20] LABS: BEDSIDE GLUCOSE 255 MG/DL (80-115)
[2017-11-18] MEDS: LEVOTHYROXINE 50MCG TABLET (0.05MG) PO (20:28)
[2017-11-18] MEDS: SIMVASTATIN 10 MG TAB PO (20:28)
[2017-11-19] MEDS: ceFAZolin SOD 1 GM in D5W MINI-BAG PLUS 50 ML IV (00:26)
[2017-11-19] MEDS: LR 1,000 ML IV (01:29)
[2017-11-19 06:37] LABS: HEMATOCRIT 35.8 % (42.0-52.0); MEAN CORPUSCULAR HEMOGLOBIN 31.6 pg (27.0-33.0); MEAN CORPUSCULAR HGB CONC 36.3 g/dl (32.0-36.5); MEAN CORPUSCULAR VOLUME 86.9 fl (80.0-96.0); PLATELET COUNT, AUTOMATED 141 10^3/uL (150-450); RED BLOOD COUNT 4.12 10^6/uL (4.30-6.10); RED CELL DISTRIBUTION WIDTH 12.4 % (11.5-14.5); WHITE BLOOD COUNT 11.5 10^3/uL (4.0-10.0)
[2017-11-19 06:42] LABS: BEDSIDE GLUCOSE 218 MG/DL (80-115)
[2017-11-19 06:47] LABS: PROTHROMBIN TIME 15.4 SECONDS (12.4-14.5)
[2017-11-19] MEDS ORDERED: PERCOCET 5MG/325MG TAB PO (07:00)
[2017-11-19] MEDS ORDERED: ONDANSETRON 4 MG TAB (S0181) PO (07:00)
[2017-11-19] MEDS: MIRALAX *UNIT DOSE* 17GM PACKET PO (08:05)
[2017-11-19] MEDS: MOM 30ML SUSPENSION UDC PO (08:05)
[2017-11-19] MEDS: HumaLOG INSULIN (NovoLOG) PER UNIT SC ×4 (08:05→21:00)
[2017-11-19] MEDS: amLODIPine 10 MG TAB PO (08:06)
[2017-11-19] MEDS: PERCOCET 5MG/325MG TAB PO ×3 (08:06→20:47)
[2017-11-19] MEDS: ALLOPURINOL 100 MG TAB PO ×3 (08:07→20:45)
[2017-11-19] MEDS: SENOKOT S TAB PO ×2 (08:07→20:45)
[2017-11-19] MEDS: DOCUSATE SODIUM 100 MG CAP PO ×2 (08:07→20:45)
[2017-11-19] MEDS: ONDANSETRON 4MG/2ML VIAL (J2405) IV (08:12)
[2017-11-19 12:09] LABS: BEDSIDE GLUCOSE 333 MG/DL (80-115)
[2017-11-19] MEDS ORDERED: WARFARIN SOD 5 MG TAB PO (17:00)
[2017-11-19] MEDS: WARFARIN SOD 7.5 MG TAB PO (17:01)
[2017-11-19 17:21] LABS: BEDSIDE GLUCOSE 254 MG/DL (80-115)
[2017-11-19] MEDS: LEVOTHYROXINE 50MCG TABLET (0.05MG) PO (20:45)
[2017-11-19] MEDS: SIMVASTATIN 10 MG TAB PO (20:46)
[2017-11-19 21:14] LABS: BEDSIDE GLUCOSE 234 MG/DL (80-115)
[2017-11-20] MEDS: PERCOCET 5MG/325MG TAB PO ×3 (00:42→10:19)
[2017-11-20] MEDS: MOM 30ML SUSPENSION UDC PO (05:52)
[2017-11-20 06:37] LABS: BEDSIDE GLUCOSE 193 MG/DL (80-115)
[2017-11-20 06:40] LABS: HEMATOCRIT 33.3 % (42.0-52.0); HEMOGLOBIN 12.1 g/dl (13.5-17.5); MEAN CORPUSCULAR HEMOGLOBIN 31.9 pg (27.0-33.0); MEAN CORPUSCULAR HGB CONC 36.3 g/dl (32.0-36.5); MEAN CORPUSCULAR VOLUME 87.9 fl (80.0-96.0); PLATELET COUNT, AUTOMATED 118 10^3/uL (150-450); RED BLOOD COUNT 3.79 10^6/uL (4.30-6.10); RED CELL DISTRIBUTION WIDTH 12.6 % (11.5-14.5); WHITE BLOOD COUNT 6.5 10^3/uL (4.0-10.0)
[2017-11-20 06:49] LABS: INR 1.22; PROTHROMBIN TIME 15.6 SECONDS (12.4-14.5)
[2017-11-20] MEDS: ENOXAPARIN 40 MG/0.4 ML SYRINGE (J1650) SC (07:59)
[2017-11-20] MEDS: MIRALAX *UNIT DOSE* 17GM PACKET PO (07:59)
[2017-11-20] MEDS: ALLOPURINOL 100 MG TAB PO (08:00)
[2017-11-20] MEDS: SENOKOT S TAB PO (08:00)
[2017-11-20] MEDS: HumaLOG INSULIN (NovoLOG) PER UNIT SC (08:00)
[2017-11-20] MEDS: DOCUSATE SODIUM 100 MG CAP PO (08:00)
[2017-11-20] MEDS: amLODIPine 10 MG TAB PO (08:00)
== END 2017-11-20 11:50 | disposition home health service (06) | DRG 302 ==
LOC: M OR 06:50 → M MS5PR 11:55
PROVIDERS: Orthopaedic Surgery
PROC: 0SRC0J9 Replacement of Right Knee Joint with Synthetic Substitute, Cemented, Open Approach (ICD-10-PCS; principal; 2017-11-18 08:56)
DX: M17.11 Unilateral primary osteoarthritis, right knee (principal); E55.9 Vitamin D deficiency, unspecified; I10 Essential (primary) hypertension; N20.0 Calculus of kidney; E11.9 Type 2 diabetes mellitus without complications; E78.5 Hyperlipidemia, unspecified; E03.9 Hypothyroidism, unspecified; G47.33 Obstructive sleep apnea (adult) (pediatric); Z79.84 Long term (current) use of oral hypoglycemic drugs; Z79.82 Long term (current) use of aspirin; Z99.89 Dependence on other enabling machines and devices; Z79.899 Other long term (current) drug therapy

== ENCOUNTER → 2017-11-25 | Outpatient (REF) | payer OTHER ==
[2017-11-25 15:02] LABS: INR 2.35; PROTHROMBIN TIME 26.6 SECONDS (12.4-14.5)
== END ==
LOC: M SHH 13:40
DX: Z79.01 Long term (current) use of anticoagulants (principal)
CPT/HCPCS: 85610

== ENCOUNTER → 2017-11-28 | Outpatient (REF) | payer OTHER ==
[2017-11-28 12:57] LABS: INR 1.85; PROTHROMBIN TIME 21.9 SECONDS (12.4-14.5)
== END ==
LOC: M SHH 12:26
DX: Z79.01 Long term (current) use of anticoagulants (principal)

== ENCOUNTER → 2017-12-03 | Outpatient (REF) | payer OTHER ==
[2017-12-03 12:07] LABS: INR 1.79; PROTHROMBIN TIME 21.3 SECONDS (12.4-14.5)
== END ==
LOC: M LABDRAW1 11:47
DX: Z79.01 Long term (current) use of anticoagulants (principal)

== ENCOUNTER → 2017-12-05 | Outpatient (REF) | payer OTHER ==
[2017-12-05 14:15] LABS: INR 2.01; PROTHROMBIN TIME 23.5 SECONDS (12.4-14.5)
== END ==
LOC: M LABDRAW1 12:45
DX: Z51.81 Encounter for therapeutic drug level monitoring (principal); Z79.01 Long term (current) use of anticoagulants

== ENCOUNTER → 2017-12-12 | Outpatient (REF) | payer OTHER ==
[2017-12-12 11:17] LABS: INR 1.93; PROTHROMBIN TIME 22.7 SECONDS (12.4-14.5)
== END ==
LOC: M SHH 10:50
DX: Z51.81 Encounter for therapeutic drug level monitoring (principal); Z79.01 Long term (current) use of anticoagulants

== ENCOUNTER → 2017-12-23 | Outpatient (CLI) | payer OTHER | LOC: M SMT 14:56 | DX: N20.0 Calculus of kidney (principal) | CPT/HCPCS: 74018 ==

== ENCOUNTER → 2020-06-17 | Outpatient (CLI) | payer MEDICARE, OTHER ==
[~2020-06-17] MED LIST changes: -ASPI81TA85 PO; +ASPI81TA86 PO; +CYAN500T14 PO; +D31000TA2 PO; +FARX1TAB3 PO; -FELO10TA PO; +FELO10TA28 PO; +FLOM0.4C39 PO; +HM M250T PO; +OMEP1CAP73 PO; +OXYC1TAB23 PO; -SIMV10TA2 PO; +SIMV10TA21 PO; +VITA-243 PO
--- NOTE | 2020-06-17 17:44 | REPPI ---
INDICATION: KIDNEY STONES. COMPARISON: 12/23/2017. TECHNIQUE: Two AP views of abdomen and pelvis performed. FINDINGS: A somewhat triangular-shaped calcific density is again seen overlying the inferior right renal shadow centrally unchanged, maximum diameter is 1.4 cm. There are 2 adjacent subcentimeter calcifications projecting over the lower pole of the left renal shadow. There are mild vascular calcifications more superiorly in the left upper quadrant. Bowel gas pattern is normal. There are moderate degenerative changes of the spine with mild curvature toward the right. IMPRESSION: Bilateral renal calculi. <Electronically signed by Daniel Muniz > 06/17/20 [id number]
== END ==
LOC: M PLAIMG 15:10
PROVIDERS: ATTEND Urology
DX: N20.0 Calculus of kidney (principal)
CPT/HCPCS: 74018; G0463

== ENCOUNTER → 2020-07-16 | Outpatient (CLI) | payer MEDICARE ==
[~2020-07-16] MED LIST changes: -FLOM0.4C39 PO; -OXYC1TAB23 PO
== END ==
LOC: M LABSMTC 09:13
PROVIDERS: ATTEND Anesthesiology
DX: Z01.812 Encounter for preprocedural laboratory examination (principal); Z20.822 Contact with and (suspected) exposure to COVID-19

== ENCOUNTER 2020-07-21 06:09 | Day surgery (SDC) | payer MEDICARE ==
[~2020-07-21] VITALS: Ht 185.4 cm; Wt 127.9 kg
[~2020-07-21 06:09] MED LIST changes: +LR 1,000 ML IV ONE
--- OUTSIDE RECORDS SUMMARY | 2020-07-21 06:13 | CCD | Continuity of Care Document ---
Demographics Address [address] [place] [address] Home Phone [phone] Preferred Language Unknown Marital Status Never Jain Affiliation Unknown Race White Ethnic Group Not or Author Author Mendez [facility]IAGO [facility] Organization Unknown Address 3 [facility] 3 [place] [address] Phone [phone] Care Team Providers Care Railcar Foreman Name Role Phone Pineda Tono Hayden [facility] [phone] Problems Active Problems Provider Date Hyperlipidemia Joe Santiago RPA Onset: 10/23/2006 Type 2 diabetes mellitus Joe Santiago RPA Onset: 10/23 Vitamin D deficiency Joe Santiago RPA Onset: 9 Gouty arthropathy Joe Santiago RPA Onset: 04/12/2011 Hematuria syndrome Joe Santiago RPA Onset: 04/13/2011 Impaired renal function disorder Joe Santiago RPA Onse t: 07/31/2012 Anemia Joe Santiago RPA Onset: 11/11/2012 Essential hypertension Joe Santiago RPA Onset: 015 Hypothyroidism Joe Santiago RPA Onset: 04/21/2015 Idiopathic gout, unspecified site Joe Santiago RPA Ons et: 04/21/2015 Nocturia Joe Santiago RPA Onset: 08/22/2016 Kidney stone Joe Santiago RPA Onset: 12/07/2016 Obstructive sleep apnea syndrome Joe Santiago RPA Onse t: 04/23/2017 Social History Type Date Description Comments Sex Unknown Tobacco Use Start: Unknown Never Smoked Cigarettes ETOH Use Consumes 2 glasses of wine per w [place] Recreational Drug Use Denies Drug Use Tobacco Use Start: Unknown Patient has never smoked Exercise Type/Frequency exercises regularly Allergies, Adverse Reactions, Alerts Description No Known Drug Allergies Medications Active Medications SIG Qnty Indications Ordering Provide r Date Onetouch Verio Strips for testing bs once daily dx:e11.9 200units R05 [facility] Onetouch Delica Plus Lancets Extra Fine 33G Plus 33G Misc use to test blood glucose once daily 100units E11.9 Tono Sung D.O., [facility] 04/07/2019 Farxiga 5mg Tablets 1 by mouth every day 90tabs Tono Sung D.O., [facility] 03/20/2019 Cefadroxil 500mg Capsules 4 by mouth prior to dental procedure 4caps Tono Sung D.O., [facility] 08/29/2018 Olmesartan Medoxomil/Hydrochlorothiazide 40-25mg Tablets 1 by mouth every day (replaces losartan 100/25) 90tabs [facility] 05/09/2018 Amlodipine Besylate 5mg Tablets Take 1 Tablet Daily 90tabs [facility] D.O[facility] Metformin HCL 500mg Tablets take one tablet by mouth 3x a day with meals 270tabs Jeff Jeffrey.Jeromy., [facility] 12/07/2016 Unifyo Ultra System W/Device Kit use as directed glucose testing dx: (e11.9) 1units [facility] D.O., [facility] 08/03/2015 Synthroid 50mcg Tablets take one tablet by mouth every day 90tabs [facility] D.O., [facility] Simvastatin 10mg Tablets take 1 tablet daily 90tabs Jeff Bush.Jeromy., [facility] Allopurinol 100mg Tablets take 1 tablet 3 times a day 270tabs Tono Sung D.O., [facility] Vitamin D 1000Unit Capsules 1 by mouth every day Unknown Vitamin C Tablets ER 1 by mouth every day Unknown Vitamin B Complex Tablets 1 by mouth every day otc Unknown Magnesium Tablets 1 by mo uth every day Unknown Aspirin Adult 325mg Tablets 1 by mouth every day OTC Unknown Medications Administered in Office Medication SIG Qnty Indications Ordering Provider Date Injection (SC)/(Im) Injection Joe Santiago, ALYCE 03/20/2019 Injection (SC)/(Im) Injection Joe Santiago, ALYCE 07/04/2017 Injection (SC)/(Im) Injection oJe Santiago, RPA 04/21/2015 Immunizations CPT Code Status Date Vaccine Lot # [id number] Given 04/15/2020 Influenza Virus Vaccine, Quadrivalent, Slit Virus, Im Use 3Y & Up [id number] 58455 Given 03/20/2019 Influenza Virus Vaccine, Quadrivalent, Slit Virus, Im Use 3Y & Up [id number] 11769 Given 05/09/2018 Influenza Virus Vaccine, Quadrivalent, Slit Virus, Im Use 3Y & Up [id number] 61045 Given 07/04/2017 Pneumococcal Immunization UI [id number] 24588 Given 04/01/2017 Influenza Virus Vaccine, Quadrivalent, Slit Virus, Im Use 3Y & Up [id number] 14738 Given 05/25/2016 Influenza Virus Vaccine, Quadrivalent, Slit Virus, Im Use 3Y & Up [id number] 26876 Given 04/21/2015 Influenza Virus Vac. Split Virus Individuals 3 Years And Above [id number] Vital Signs Date Vital Result Comment 07/18/2020 3:25pm BP Systolic 116 mmHg BP Diastolic 78 mmHg Body Temperature 97.7 F Heart Rate 93 /min Respiratory Rate 16 /min Height 73 inches 6'1" Weight 283.00 lb [place] Body Weight 184 lb BMI (Body Mass Index) 37.3 kg/m2 O2 % BldC Oximetry 96 % 07/12/2020 1:43pm BP Systolic 116 mmHg BP Diastolic 74 mmHg Body Temperature 97.8 F Heart Rate 83 /min Respiratory Rate 16 /min Height 73 inches 6'1" Weight 284.00 lb [place] Body Weight 184 lb BMI (Body Mass Index) 37.5 kg/m2 O2 % BldC Oximetry 96 % Results Test Acquired Date Facility Test Result H/L Range Note Basic Metabolic Panel 07/13/2020 [place] [address] [phone] Basic Metabolic Pane (SEE NOTE) 1, 2 Sodium 138 mEq/L 134 - 153 Potassium 3.9 mEq/L 3.6 - 5.0 Chloride 98 mEq/L 98 - 107 Co2 26 mEq/L 22 - 30 Glucose 265 mg/dL High 65 - 110 BUN 20 mg/dL 7 - 21 Creatinine 0.9 mg/dL 0.7 - 1.5 BUN/Creat 22 8 - 27 Calcium 9.2 mg/dL 8.4 - 10.2 Anion Gap 14.0 mmol/L 8.0 - 16.0 Age 65 yrs Afr Amer GFR >60 mL/min Non-Aa GFR >60 mL/min 3 CBC No Diff 07/13/2020 [place], [place] [id number] [phone] CBC No Diff (SEE NOTE) 4 WBC 4.6 10^3/uL 4.2 - 11.0 RBC 5.26 10^6/uL 4.50 - 6.30 Hemoglobin 16.9 g/dL High 14.0 - 16.0 Hematocrit 49.4 % 41.0 - 51.0 MCV 93.9 fL 80.0 - 94.0 MCH 32.1 pg 27.0 - 34.0 MCHC 34.2 g/dL 31.0 - 36.0 RDW 13.2 % 11.5 - 14.8 Platelets 106 10^3/uL Low 150 - 450 MPV 11.3 fL High 7.4 - 10.4 PT/PTT 07/13/2020 [place] [address] [phone] Protime 13.2 seconds 11.0 - 15.5 Inr 0.95 0.93 - 1.23 PTT 26.5 seconds 24.8 - 36.7 5 Laboratory test finding 07/11/2020 [facility] Hemoglobin A1c 7.3 % High 4.40 - 6.10 Laboratory test finding 05/13/2020 [facility] [place] [address] [phone] Coronavirus Covid-19 Not Detected Not Dete cted 6 Laboratory test finding 04/08/2020 [facility]house TSH 1.998 ulU/mL 0.60 - 4.8 Laboratory test finding 04/08/2020 [facility] PSA, Total 2.44 ng/mL 0.0 - 4.0 CMP 04/08/2020 [facility] Glu 170 mg/dL High 70 - 110 7 BUN 19 mg/dL 8 - 23 Creat 1.1 mg/dL 0.7 - 1.2 BUN/Creatinine Ratio 17.7 CALC Na 140 mmol/L 136 - 145 K 3.8 mmol/L 3.5 - 5.1 CL 98.6 mmol/L 98.0 - 107.0 Co2 29.8 mmol/L High 22.0 - 29.0 CA 10.2 mg/dL 8.6 - 10.2 TP 6.9 g/dL 6.6 - 8.7 Alb 4.8 g/dL 3.5 - 5.2 A/G Ratio 2.3 CALC Globulin 2.1 CALC Alp 73.0 U/L 40 - 129 Alt (SGPT) 41 U/L 0 - 41 Ast (Sgot) 56 U/L High 0 - 40 Tbili 0.80 mg/dL 0.0 - 1.2 Osmolality-Calculated 285.1 CALC Anion Gap 15 mmol/L eGFR 80 # Calc 8 eGFR Non-Afr. [place]ayan 69 # Calc 9 Lipid Panel 04/08/2020 [facility]house Chol 146 mg/dL 0 - 200 Trig 175 mg/dL 35 - 200 HDL 42 mg/dL 35 - 55 LDL_C 69 Calc Low 75 - 129 Cho/HDL Ratio 3.5 Calc U/A DIP 04/08/2020 [facility]house Color yellow QUAL Clarity clear QUAL Glucose-Ua >=1000 g/dL Abnormal Negative Bilirubin,Urine Negative QUAL Negative Ketone Trace mg/dL Abnormal Negative Specific [place] 1.015 # 1.000 - 1.030 Blood - Ua Negative QUAL Negative pH 5.5 # 5.0 - 8.0 Protein Negative mg/dL Negative Urobilinogen 0.2 NA 0.2 - 1.0 Nitrite Negative QUAL Negative Leukocyte Negative QUAL Negative Laboratory test finding 04/08/2020 [facility] Hemoglobin A1c 7.0 % High 4.40 - 6.10 Laboratory test finding 04/08/2020 [facility] [place] Vitamin D, 25-Hydroxy 28.7 ng/mL Low 30.0-100.0 10 1 Is patient fasting? N 2 BASIC METABOLIC PANEL 3 Male GFR Interprentation 20-49 yrs >60 mL/min Normal 50-59 yrs >56 mL/min Normal 60-69 yrs >49 mL/min Normal 70-79yrs >42 mL/min Normal 80 and above >35 mL/min Normal Female GFR Interpretation 20-39 yrs >60 mL/min Normal 40-49 yrs >58 mL/min Normal 50-59 yrs >51 mL/min Normal 60-69 yrs >45 mL/min Normal 70-79 yrs >39 mL/min Normal 80 and above >32 mL/min Normal 4 COMPLETE BLOOD COUNT 5 \\BLDo\\INR INTERPRETATION\\BLD x\\ Therapeutic range for Coumadin and related oral anticoagulants. -International Normalized Ratio (INR): 2 .0 - 3.0 for Venous Thrombosis, Pulmonary Embolus, Tissue heart valves, Acute [place] Atrial Fibrillation, Valvular heart disease and recurrent Systemic Embolism. -International Normalized Ratio (INR): 2 .5 - 3.5 for Mechanical Prosthetic valve. 6 This nucleic acid amplificat ion test was developed and its performance characteristics determined by [employer]. Nucleic acid amplification tests include PCR and TMA. This test has not been FDA cleared or approved. This test has been authorized by FDA under an Emergency Use Authorization (EUA). This test is only authorized for the duration of time the declaration that circumstances exist justifying the authorization of the emergency use of in vitro diagnostic tests for detection of SARS-CoV-2 virus and/or diagnosis of COVID-19 infection under section 564(b)(1) of the Act, 21 U.S.C. 360bbb-3(b) (1), unless the authorizatio n is terminated or revoked sooner. When diagnostic testing is negative, the possibility of a false negative result should be considered in the context of a patient's recent exposures and the presence of clinical signs and symptoms consistent with COVID-19. An individual without symptoms of COVID-19 and who is not shedding SARS-CoV-2 virus would expect to have a negative (not detected) result in this assay. 7 CHRONIC KIDNEY DISEASE STAGI NG PER NKF: MALE GFR INTERPRETATION: 20-49 YRS: >60 mL/min Normal 50-59 YRS: >56 mL/min Normal 60-69 YRS: >49 mL/min Normal 70-79 YRS: >42 mL/min Normal 80 and above >35 mL/min Normal FEMALE GRF INTERPRETATION: 20-39 YRS: >60 mL/min Normal 40-49 YRS: >58 mL/min Normal 50-59 YRS: >51 mL/min Normal 60-69 YRS: >45 mL/min Normal 70-79 YRS: >39 mL/min Normal 80 and above >32 mL/min NormalCLASSIFICATION CHOLESTEROL FOR ADULTS CHILDREN/ADOLESCENTS* DESIRABLE: <200 MG/DL <170 MG/DL BORDER-LINE HIGH RISK: 200-239 MG/DL 170-199 MG/DL HIGH RISK: >240 MG/DL >200 MG/DL CLASS. FOR PRIMARY LDL CHOL PREVENTION: LDL CHOL-CHILD/ADOLESCENTS* DESIRABLE: <130 MG/DL <110 MG/DL BORDERLINE-HIGH RISK: 130-159 MG/DL 110-129 MG/DL HIGH RISK: >160 MG/DL >130 MG/DL *CHILDREN AND ADOLESCENTS REPRESENTS INDIVIDUALA AGED 2-19 YEARS EXCLUSIVE. 8 CKD-EPI 9 CKD-EPI 10 Vitamin D deficiency has bee n defined by the Issue of Medicine and an Endocrine Society practice guideline as a level of serum 25-OH vitamin D less than 20 ng/mL (1,2). The Endocrine Society went on to further define vitamin D insufficiency as a level between 21 and 29 ng/mL (2). 1. IOM (Issue of Medicine). 2010. Di etary reference intakes for calcium and D. [place]: The National Academies Press. 2. Rosanna MCCORMACK, Chloe GILBERT, Robin mcneil BARAJAS, et al. Evaluation, treatment, and prevention of vitamin D deficiency: an Endocrine Society clinical practice guideline. JCEM. 2010; 96(7):1911-30. 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, unsp E55.9 Vitamin D deficiency, unspec ified Office Visit 07/12/2020 1:30p [place] [facility] Joe Santiago, RP A Z00.01 Encounter for general adult medical exam w abnormal findings N20.0 Calculus of kidney E11.9 Type 2 diabetes mellitus wit hout complications E78.5 Hyperlipidemia, unspecified E03.9 Hypothyroidism, unspecified I10 Essential (primary) hyperten bethanie G47.33 Obstructive sleep apnea (nikhil lt) (pediatric) R31.9 Hematuria, unspecified N25.9 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, unsp E55.9 Vitamin D deficiency, unspec ified Office Visit 04/15/2020 3:00p [place] [facility] Joe Santiago, RP A Z00.01 Encounter for general adult medical exam w abnormal findings E11.9 Type 2 diabetes mellitus wit hout complications E78.5 Hyperlipidemia, unspecified E03.9 Hypothyroidism, unspecified I10 Essential (primary) hyperten bethanie G47.33 Obstructive sleep apnea (nikhil lt) (pediatric) R31.9 Hematuria, unspecified N25.9 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, unsp E55.9 Vitamin D deficiency, unspec ified N20.0 Calculus of kidney K92.1 Melena Z23 Encounter for immunization Assessments Date Code Description Provider 07/18/2020 E11.9 Type 2 diabetes mellitus without complications Joe Santiago, RPA 07/18/2020 E78.5 Hyperlipidemia, unspecified Joe Park, RPA 07/18/2020 I10 Essential (primary) hypertension Joe Santiago, RPA 07/18/2020 E03.9 Hypothyroidism, unspecified Joe Park, RPA 07/18/2020 N20.0 Calculus of kidney Arben Santiago, RPA 07/18/2020 G47.33 Obstructive sleep apnea (adult) (pediatric) Joe Santiago, RPA 07/18/2020 R31.9 Hematuria, unspecified Gama Santiago, RPA 07/18/2020 N25.9 Disorder resulting from impaired renal tubular function, uns Joe Santiago, RPA 07/18/2020 E55.9 Vitamin D deficiency, unspecifie d Joe Santiago, RPA 07/12/2020 Z00.01 Encounter for genera l adult medical examination with abnormal findings Joe Santiago, RPA 07/12/2020 N20.0 Calculus of kidney Arben Santiago, RPA 07/12/2020 E11.9 Type 2 diabetes mellitus without complications Joe Santiago, RPA 07/12/2020 E78.5 Hyperlipidemia, unspecified Joe Park, RPA 07/12/2020 E03.9 Hypothyroidism, unspecified Joe Park, RPA 07/12/2020 I10 Essential (primary) hypertension Joe Santiago, RPA 07/12/2020 G47.33 Obstructive sleep apnea (adult) (pediatric) Joe Santiago, RPA 07/12/2020 R31.9 Hematuria, unspecified Gama Santiago, RPA 07/12/2020 N25.9 Disorder resulting from impaired renal tubular function, uns Joe Santiago, RPA 07/12/2020 E55.9 Vitamin D deficiency, unspecifie d Joe Santiago, RPA 07/11/2020 E11.9 Type 2 diabetes mellitus without complications Tono Sung D.O., [facility] 04/15/2020 Z00.01 Encounter for genera l adult medical examination with abnormal findings Joe Santiago, RPA 04/15/2020 E11.9 Type 2 diabetes mellitus without complications Joe Santiago, RPA 04/15/2020 E78.5 Hyperlipidemia, unspecified Joe Park, RPA 04/15/2020 E03.9 Hypothyroidism, unspecified Joe Park, RPA 04/15/2020 I10 Essential (primary) hypertension Joe Santiago, RPA 04/15/2020 G47.33 Obstructive sleep apnea (adult) (pediatric) Joe Santiago, RPA 04/15/2020 R31.9 Hematuria, unspecified Gama Santiago, RPA 04/15/2020 N25.9 Disorder resulting from impaired renal tubular function, uns Joe Santiago, RPA 04/15/2020 E55.9 Vitamin D deficiency, unspecifie d Joe Santiago, RPA 04/15/2020 N20.0 Calculus of kidney Arben Santiago, RPA 04/15/2020 K92.1 [place] Joe Santiago, RPA 04/15/2020 Z23 Encounter for immunization Joe Park, RPA 04/08/2020 E11.9 Type 2 diabetes mellitus without complications Tono Sung D.O., [facility] 04/08/2020 E78.5 Hyperlipidemia, unspecified [facility]anda [facility].O., [facility] 04/08/2020 E03.9 Hypothyroidism, unspecified [facility].O., [facility] 04/08/2020 R31.9 Hematuria, unspecified Tono Sung D.O., [facility] Plan of Treatment Future Appointment(s):* 10/14/2020 9:15 am - [facility] [place] [facility] [place] * 10/21/2020 2:00 pm - Joe Santiago, RPA at [facility] Functional Status Description No Information Available Mental Status Description No Information Available Referrals Refer to Dr Reason for Referral Status Appt Date Mendez Clarke M.D. Positive Hemeoccult. Last c olonoscopy 03/10/15 -Dr. Clarke. Sent [address] [place] [address] [phone]
--- OUTSIDE RECORDS SUMMARY | 2020-07-21 06:14 | CCD | Continuity of Care Document ---
Demographics Address [address] [place] [address] Home Phone [phone] Preferred Language Unknown Marital Status Never Amish Affiliation Unknown Race White Ethnic Group Not or Author Author Mendez SANTIAGO [facility] Organization Unknown Address 3 [facility] [address] [place] [address] Phone [phone] Care Team Providers Care Fudger Name Role Phone Pineda Tono Hayden [facility] [phone] Problems Active Problems Provider Date Hyperlipidemia Joe [...] Consumes 2 glasses of wine per w [place] Recreational Drug Use Denies Drug Use Tobacco Use Start: Unknown Patient has never smoked Exercise Type/Frequency exercises regularly Allergies, Adverse Reactions, Alerts Description No Known Drug Allergies Medications Active Medications SIG Qnty Indications Ordering Provide r Date Onetouch Verio Strips for testing bs once daily dx:e11.9 200units R05 [facility] 04[facility]2020 Onetouch Delica Plus Lancets Extra Fine [...] (replaces losartan 100/25) 90tabs [facility] 05/09/2018 Amlodipine Besylate 5mg Tablets Take 1 Tablet Daily 90tabs [facility] Metformin HCL 500mg Tablets take one tablet by mouth 3x a day with meals 270tabs Jeff Jeffrey.Jeromy., [facility] 12/07/2016 [employer] Ultra System W/Device Kit use as directed glucose testing dx: (e11.9) 1units [facility] D.O., [facility] 08/03/2015 Synthroid 50mcg Tablets take one tablet by mouth every day 90tabs [facility] Simvastatin 10mg Tablets take 1 tablet daily [...] Joe Santiago, ALYCE 07/04/2017 Injection (SC)/(Im) Injection Joe Santiago, RPA 04/21/2015 Immunizations CPT Code Status Date Vaccine Lot # [id number] Given 04/15/2020 Influenza Virus Vaccine, Quadrivalent, Slit Virus, Im Use 3Y & Up [id number] 24891 Given 03/20/2019 Influenza Virus Vaccine, Quadrivalent, Slit Virus, Im Use 3Y & Up [id number] 20385 Given 05/09/2018 Influenza Virus Vaccine, Quadrivalent, Slit Virus, Im Use 3Y & Up [id number] 03320 Given 07/04/2017 Pneumococcal Immunization UI [id number] 58079 Given 04/01/2017 Influenza Virus Vaccine, Quadrivalent, Slit Virus, Im Use 3Y & Up [id number] 38139 Given 05/25/2016 Influenza Virus Vaccine, Quadrivalent, Slit Virus, Im Use 3Y & Up [id number] 33309 Given 04/21/2015 Influenza Virus Vac. Split Virus Individuals 3 Years And Above [id number] Vital Signs Date Vital Result Comment 07/12/2020 1:43pm BP Systolic 116 mmHg BP Diastolic 74 mmHg Body Temperature 97.8 F Heart Rate 83 /min Respiratory Rate 16 /min Height 73 inches 6'1" Weight 284.00 lb [place] Body Weight 184 lb BMI (Body Mass Index) 37.5 kg/m2 O2 % BldC Oximetry 96 % 04/15/2020 2:53pm BP Systolic 134 mmHg BP Diastolic 84 mmHg Body Temperature 98.3 F Heart Rate 79 /min Respiratory Rate 16 /min Height 73 inches 6'1" Weight 283.00 lb [place] Body Weight 184 lb BMI (Body Mass Index) 37.3 kg/m2 O2 % BldC Oximetry 97 % Results Test Acquired Date Facility Test Result H/L Range Note Basic Metabolic Panel 07/13/2020 [place] [address] [phone] Basic Metabolic Pane (SEE NOTE) 1, 2 [...] >60 mL/min 3 CBC No Diff 07/13/2020 [place] [address] [phone] CBC No Diff (SEE NOTE) 4 WBC [...] fL High 7.4 - 10.4 PT/PTT 07/13/2020 [place] [address] [phone] Protime 13.2 seconds 11.0 - 15.5 Inr 0.95 0.93 - 1.23 PTT 26.5 seconds 24.8 - 36.7 5 Laboratory test finding 07/11/2020 [facility] Hemoglobin A1c 7.3 % High 4.40 - 6.10 Laboratory test finding 05/13/2020 [facility] [place] [address] [phone] Coronavirus Covid-19 Not Detected Not Dete cted [...] eGFR 80 # Calc 8 eGFR Non-Afr. Faroese 69 # Calc 9 Lipid Panel 04/08/2020 [facility]house Chol 146 mg/dL 0 - 200 Trig 175 mg/dL 35 - 200 HDL 42 mg/dL 35 - 55 LDL_C 69 Calc Low 75 - 129 Cho/HDL Ratio 3.5 Calc U/A DIP 04/08/2020 [facility] Color yellow QUAL Clarity clear QUAL Glucose-Ua >=1000 g/dL Abnormal Negative Bilirubin,Urine Negative QUAL Negative Ketone Trace mg/dL Abnormal Negative Specific [place] 1.015 # 1.000 - 1.030 Blood - [...] Thrombosis, Pulmonary Embolus, Tissue heart valves, Acute [place] Atrial Fibrillation, Valvular heart disease and recurrent Systemic Embolism. -International Normalized Ratio (INR): 2 .5 - 3.5 for Mechanical Prosthetic valve. 6 This nucleic acid amplificat ion test was developed and its performance characteristics determined by [employer]. Nucleic acid amplification tests include PCR and [...] deficiency has bee n defined by the [place] of Medicine and an Endocrine Society practice guideline as a level of serum 25-OH vitamin D less than 20 ng/mL (1,2). The Endocrine Society went on to further define vitamin D insufficiency as a level between 21 and 29 ng/mL (2). 1. IOM ([place] of Medicine). 2010. Di etary reference intakes for calcium and D. [place]: The National Academies Press. 2. Rosanna MCCORMACK, Chloe GILBERT, Eber-Martín mcneil BARAJAS, et al. Evaluation, treatment, and prevention of vitamin D deficiency: an Endocrine Society clinical practice guideline. JCEM. 2010; 96(7):1911-30. Procedures Description No Information Available Medical Devices Description No Information Available Encounters Type Date Location Provider Dx Diagnosis Office Visit 04/15/2020 3:00p [place] [facility] Joe Santiago, RP A Z00.01 Encounter [...] for immunization Assessments Date Code Description Provider 07/12/2020 Z00.01 Encounter for genera l adult [...] diabetes mellitus without complications Tono Sung D.O., [facility] 04/15/2020 Z00.01 Encounter for genera l adult [...] of kidney Arben Santiago, RPA 04/15/2020 K92.1 [place] Joe Santiago, RPA 04/15/2020 Z23 Encounter for immunization Joe Park, RPA 04/08/2020 E11.9 Type 2 diabetes mellitus without complications Tono Sung D.O., [facility] 04/08/2020 E78.5 Hyperlipidemia, unspecified Ananda Sung D.O., [facility] 04/08/2020 E03.9 Hypothyroidism, unspecified Ananda Sung D.O., [facility] 04/08/2020 R31.9 Hematuria, unspecified Tono Sung D.O., [facility] Plan of Treatment Future Appointment(s):* 07/18/2020 3:15 pm - Joe Santiago, ALYCE at [place] [facility] Functional Status Description No Information Available Mental Status Description No Information Available Referrals Refer to Dr Reason for Referral Status Appt Date Mendez Clarke M.D. Positive Hemeoccult. Last c olonoscopy 03/10/15 -Dr. Clarke. Sent [address] [place] [address] [phone]
--- OUTSIDE RECORDS SUMMARY | 2020-07-21 06:14 | CCD | Continuity of Care Document ---
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 Phone Pineda Tono Hayden [facility] [phone] Problems Active Problems Provider Date Hyperlipidemia Joe [...] Consumes 2 glasses of wine per w [place] Recreational Drug Use Denies Drug Use Tobacco Use Start: Unknown Patient has never smoked Exercise Type/Frequency exercises regularly Allergies, Adverse Reactions, Alerts Description No Known Drug Allergies Medications Active Medications SIG Qnty Indications Ordering Provide r Date Onetouch Verio Strips for testing bs once daily dx:e11.9 200units R05 [facility]2020 Onetouch Delica Plus Lancets Extra [...] (replaces losartan 100/25) 90tabs [facility] 05/09/2018 Amlodipine Besylate 5mg Tablets Take 1 Tablet Daily 90tabs [facility] Metformin HCL 500mg Tablets take one tablet by mouth 3x a day with meals 270tabs Jeff Jeffrey.Jeromy., [facility] 12/07/2016 SkyPh[employer] Ultra System W/Device Kit use as directed glucose testing dx: (e11.9) 1units [facility] 08/03/2015 Synthroid 50mcg Tablets take one tablet by mouth every day 90tabs [facility] Simvastatin 10mg Tablets take 1 tablet [...] CPT Code Status Date Vaccine Lot # [id number] Given 04/15/2020 Influenza Virus Vaccine, Quadrivalent, Slit Virus, Im Use 3Y & Up [id number] 37377 Given 03/20/2019 Influenza Virus Vaccine, Quadrivalent, Slit Virus, Im Use 3Y & Up [id number] 62580 Given 05/09/2018 Influenza Virus Vaccine, Quadrivalent, Slit Virus, Im Use 3Y & Up [id number] 45453 Given 07/04/2017 Pneumococcal Immunization UI [id number] 92774 Given 04/01/2017 Influenza Virus Vaccine, Quadrivalent, Slit Virus, Im Use 3Y & Up [id number] 41399 Given 05/25/2016 Influenza Virus Vaccine, Quadrivalent, Slit Virus, Im Use 3Y & Up [id number] 26241 Given 04/21/2015 Influenza Virus Vac. Split Virus Individuals 3 Years And Above [id number] Vital Signs Date Vital Result Comment 07/18/2020 3:25pm BP Systolic 116 mmHg BP Diastolic 78 mmHg Body Temperature 97.7 F Heart Rate 93 /min Respiratory Rate 16 /min Height 73 inches 6'1" Weight 283.00 lb [place] Body Weight 184 lb BMI (Body Mass Index) 37.3 kg/m2 O2 % BldC Oximetry 96 % 07/12/2020 1:43pm BP Systolic 116 mmHg BP Diastolic 74 mmHg Body Temperature 97.8 F Heart Rate 83 /min Respiratory Rate 16 /min Height 73 inches 6'1" Weight 284.00 lb [place] Body Weight 184 lb BMI (Body Mass Index) 37.5 kg/m2 O2 % BldC Oximetry 96 % Results Test Acquired Date Facility Test Result H/L Range Note Basic Metabolic Panel 07/13/2020 [place] [address] [phone] Basic Metabolic Pane (SEE NOTE) 1, 2 [...] >60 mL/min 3 CBC No Diff 07/13/2020 [place], [place] [id number] [phone] CBC No Diff (SEE NOTE) 4 WBC [...] fL High 7.4 - 10.4 PT/PTT 07/13/2020 [place] [address] [phone] Protime 13.2 seconds 11.0 - 15.5 Inr 0.95 0.93 - 1.23 PTT 26.5 seconds 24.8 - 36.7 5 Laboratory test finding 07/11/2020 [facility] Hemoglobin A1c 7.3 % High 4.40 - 6.10 Laboratory test finding 05/13/2020 [facility] [place] [address] [phone] Coronavirus Covid-19 Not Detected Not Dete cted [...] eGFR 80 # Calc 8 eGFR Non-Afr. Sammarinese 69 # Calc 9 Lipid Panel 04/08/2020 [facility] Chol 146 mg/dL 0 - 200 Trig 175 mg/dL 35 - 200 HDL 42 mg/dL 35 - 55 LDL_C 69 Calc Low 75 - 129 Cho/HDL Ratio 3.5 Calc U/A DIP 04/08/2020 [facility] Color yellow QUAL Clarity clear QUAL Glucose-Ua >=1000 g/dL Abnormal Negative Bilirubin,Urine Negative QUAL Negative Ketone Trace mg/dL Abnormal Negative Specific [place] 1.015 # 1.000 - 1.030 Blood - [...] Thrombosis, Pulmonary Embolus, Tissue heart valves, Acute [place] Atrial Fibrillation, Valvular heart disease and recurrent Systemic Embolism. -International Normalized Ratio (INR): 2 .5 - 3.5 for Mechanical Prosthetic valve. 6 This nucleic acid amplificat ion test was developed and its performance characteristics determined by [employer]. Nucleic acid amplification tests include PCR and [...] deficiency has bee n defined by the [place] of Medicine and an Endocrine Society practice guideline as a level of serum 25-OH vitamin D less than 20 ng/mL (1,2). The Endocrine Society went on to further define vitamin D insufficiency as a level between 21 and 29 ng/mL (2). 1. IOM ([place] of Medicine). 2010. 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, unsp E55.9 Vitamin D deficiency, unspec ified Office Visit 07/12/2020 1:30p [place] [facility] Joe Santiago, RP A Z00.01 Encounter [...] deficiency, unspec ified Office Visit 04/15/2020 3:00p [place] [facility] Joe Santiago, RP A Z00.01 Encounter [...] diabetes mellitus without complications Tono Sung D.O., [facility] 04/15/2020 Z00.01 Encounter for genera l [...] 04/08/2020 R31.9 Hematuria, unspecified Tono Sung D.O., [facility] Plan of Treatment No Information Available Functional Status Description No Information Available Mental Status Description No Information Available Referrals Refer to Reason for Referral Status Appt Date Mendez Clarke M.D. Positive Hemeoccult. Last c olonoscopy 03/10/15 -Dr. Clarke. Sent [address] [place] [address] [phone]
--- OUTSIDE RECORDS SUMMARY | 2020-07-21 06:15 | CCD | Continuity of Care Document ---
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 Role Phone Pineda Tono Hayden [facility] [phone] Problems Active Problems Provider Date Hyperlipidemia Joe [...] Consumes 2 glasses of wine per w [place] Recreational Drug Use Denies Drug Use Tobacco Use Start: Unknown Patient has never smoked Exercise Type/Frequency exercises regularly Allergies, Adverse Reactions, Alerts Description No Known Drug Allergies Medications Active Medications SIG Qnty Indications Ordering Provide r Date Onetouch Verio Strips for testing bs once daily dx:e11.9 200units R05 [facility] 04/2020 Onetouch Delica Plus Lancets Extra [...] (replaces losartan 100/25) 90tabs [facility] 05/09/2018 Amlodipine Besylate 5mg Tablets Take 1 Tablet Daily 90tabs [facility] Metformin HCL 500mg Tablets take one tablet by mouth 3x a day with meals 270tabs Jeff Jeffrey.Jeromy., [facility] 12/07/2016 [employer] Ultra System W/Device Kit use as directed glucose testing dx: (e11.9) 1units [facility] 08/03/2015 Synthroid 50mcg Tablets take one tablet by mouth every day 90tabs [facility] Simvastatin 10mg Tablets take 1 tablet [...] CPT Code Status Date Vaccine Lot # [id number] Given 04/15/2020 Influenza Virus Vaccine, Quadrivalent, Slit Virus, Im Use 3Y & Up [id number] 38152 Given 03/20/2019 Influenza Virus Vaccine, Quadrivalent, Slit Virus, Im Use 3Y & Up [id number] 20358 Given 05/09/2018 Influenza Virus Vaccine, Quadrivalent, Slit Virus, Im Use 3Y & Up [id number] 61172 Given 07/04/2017 Pneumococcal Immunization UI [id number] 13793 Given 04/01/2017 Influenza Virus Vaccine, Quadrivalent, Slit Virus, Im Use 3Y & Up [id number] 18795 Given 05/25/2016 Influenza Virus Vaccine, Quadrivalent, Slit Virus, Im Use 3Y & Up [id number] 02100 Given 04/21/2015 Influenza Virus Vac. Split Virus Individuals 3 Years And Above [id number] Vital Signs Date Vital Result Comment 07/12/2020 1:43pm BP Systolic 116 mmHg BP Diastolic 74 mmHg Body Temperature 97.8 F Heart Rate 83 /min Respiratory Rate 16 /min Height 73 inches 6'1" Weight 284.00 lb [place] Body Weight 184 lb BMI (Body Mass Index) 37.5 kg/m2 O2 % BldC Oximetry 96 % 04/15/2020 2:53pm BP Systolic 134 mmHg BP Diastolic 84 mmHg Body Temperature 98.3 F Heart Rate 79 /min Respiratory Rate 16 /min Height 73 inches 6'1" Weight 283.00 lb [place] Body Weight 184 lb BMI (Body Mass Index) 37.3 kg/m2 O2 % BldC Oximetry 97 % Results Test Acquired Date Facility Test Result H/L Range Note Laboratory test finding 07/11/2020 [facility] Hemoglobin A1c 7.3 % High 4.40 - 6.10 Laboratory test finding 05/13/2020 [place] [id number] [phone] Coronavirus Covid-19 Not Detected Not Dete cted 1 Laboratory test finding 04/08/2020 [facility] TSH 1.998 ulU/mL 0.60 - 4.8 Laboratory test finding 04/08/2020 [facility] PSA, Total 2.44 ng/mL 0.0 - 4.0 CMP 04/08/2020 [facility] Glu 170 mg/dL High 70 - 110 2 BUN 19 mg/dL 8 - 23 Creat [...] Gap 15 mmol/L eGFR 80 # Calc 3 eGFR Non-Afr. Citizen Of [place] 69 # Calc 4 Lipid Panel 04/08/2020 [facility] Chol 146 mg/dL 0 - 200 Trig 175 mg/dL 35 - 200 HDL 42 mg/dL 35 - 55 LDL_C 69 Calc Low 75 - 129 Cho/HDL Ratio 3.5 Calc U/A DIP 04/08/2020 [facility] Color yellow QUAL Clarity clear QUAL Glucose-Ua >=1000 g/dL Abnormal Negative Bilirubin,Urine Negative QUAL Negative Ketone Trace mg/dL Abnormal Negative Specific [place] 1.015 # 1.000 - 1.030 Blood - Ua Negative QUAL Negative pH 5.5 # 5.0 - 8.0 Protein Negative mg/dL Negative Urobilinogen 0.2 NA 0.2 - 1.0 Nitrite Negative QUAL Negative Leukocyte Negative QUAL Negative Laboratory test finding 04/08/2020 [facility] Hemoglobin A1c 7.0 % High 4.40 - 6.10 Laboratory test finding 04/08/2020 [facility] [place] Vitamin D, 25-Hydroxy 28.7 ng/mL Low 30.0-100.0 5 1 This nucleic acid amplificat ion test was developed and its performance characteristics determined by [employer]. Nucleic acid amplification tests include PCR and [...] negative (not detected) result in this assay. 2 CHRONIC KIDNEY DISEASE STAGI NG PER NKF: [...] ADOLESCENTS REPRESENTS INDIVIDUALA AGED 2-19 YEARS EXCLUSIVE. 3 CKD-EPI 4 CKD-EPI 5 Vitamin D deficiency has bee n defined by the [place] of Medicine and an Endocrine Society practice guideline as a level of serum 25-OH vitamin D less than 20 ng/mL (1,2). The Endocrine Society went on to further define vitamin D insufficiency as a level between 21 and 29 ng/mL (2). 1. IOM ([place] of Medicine). 2010. Di etary reference intakes for calcium and D. [place]: The National Academies Press. 2. Rosanna MF, Chloe GILBERT, Robin mcneil BARAJAS, et al. Evaluation, treatment, and prevention of vitamin D deficiency: an Endocrine Society clinical practice guideline. JCEM. 2010; 96(7):1911-30. Procedures Description No Information Available Medical Devices Description No Information Available Encounters Type Date Location Provider Dx Diagnosis Office Visit 04/15/2020 3:00p [place] [facility] Joe Santiago, RP Brisa Z00.01 Encounter for general adult medical exam [...] diabetes mellitus without complications [facility] 04/15/2020 Z00.01 Encounter for genera l adult [...] Disorder resulting from impaired renal tubular function, Joe Gordon, RPA 04/15/2020 E55.9 Vitamin D deficiency, unspecifie d Joe Santiago, RPA 04/15/2020 N20.0 Calculus of kidney Arben Santiago, RPA 04/15/2020 K92.1 [place] Joe Santiago, RPA 04/15/2020 Z23 Encounter for immunization Joe Park, RPA 04/08/2020 E11.9 Type 2 diabetes mellitus without complications [facility]ung D.O., [facility] 04/08/2020 E78.5 Hyperlipidemia, unspecified Ananda Sung D.O., [facility] 04/08/2020 E03.9 Hypothyroidism, unspecified [facility] D.O., [facility] 04/08/2020 R31.9 Hematuria, unspecified Tono Sung D.O., [facility] Plan of Treatment Future Appointment(s):* 07/18/2020 3:15 pm - Joe Santiago, RPA at [facility] Functional Status Description No Information Available Mental Status Description No Information Available Referrals Refer to Dr Reason for Referral Status Appt Date Mendez Clarke M.D. Positive Hemeoccult. Last c olonoscopy 03/10/15 -Dr. Clarke. Sent [address] [place] [address] [phone]
--- OUTSIDE RECORDS SUMMARY | 2020-07-21 06:15 | CCD | Continuity of Care Document ---
Demographics Address [address] [place] [address] Home Phone [phone] Preferred Language Unknown Marital Status Never Yazidism Affiliation Unknown Race White Ethnic Group Not or Author Author Laboratory Mendez Prakash [facility] Unknown Address 3 [facility] 3 [place] [address] Phone [phone] Care Team Providers Care Code Official Name Role Phone Tono Sung D.O. [facility] [phone] Problems Active Problems Provider Date Hyperlipidemia Joe [...] Consumes 2 glasses of wine per w [place] Recreational Drug Use Denies Drug Use Tobacco Use Start: Unknown Patient has never smoked Exercise Type/Frequency exercises regularly Allergies, Adverse Reactions, Alerts Description No Known Drug Allergies Medications Active Medications SIG Qnty Indications Ordering Provide r Date Onetouch Verio Strips for testing bs once daily dx:e11.9 200units R05 [facility] 04/2020 Onetouch Delica Plus Lancets Extra [...] (replaces losartan 100/25) 90tabs [facility] 05/09/2018 Amlodipine Besylate 5mg Tablets Take 1 Tablet Daily 90tabs [facility] Metformin HCL 500mg Tablets take one tablet by mouth 3x a day with meals 270tabs Jeff Jeffrey.Jeromy., [facility] 12/07/2016 [employer] Ultra System W/Device Kit use as directed glucose testing dx: (e11.9) 1units [facility] 08/03/2015 Synthroid 50mcg Tablets take one tablet by mouth every day 90tabs [facility] Simvastatin 10mg Tablets take 1 tablet [...] CPT Code Status Date Vaccine Lot # [id number] Given 04/15/2020 Influenza Virus Vaccine, Quadrivalent, Slit Virus, Im Use 3Y & Up [id number] 45575 Given 03/20/2019 Influenza Virus Vaccine, Quadrivalent, Slit Virus, Im Use 3Y & Up [id number] 88439 Given 05/09/2018 Influenza Virus Vaccine, Quadrivalent, Slit Virus, Im Use 3Y & Up [id number] 52583 Given 07/04/2017 Pneumococcal Immunization UI [id number] 42313 Given 04/01/2017 Influenza Virus Vaccine, Quadrivalent, Slit Virus, Im Use 3Y & Up [id number] 06579 Given 05/25/2016 Influenza Virus Vaccine, Quadrivalent, Slit Virus, Im Use 3Y & Up [id number] 50670 Given 04/21/2015 Influenza Virus Vac. Split Virus Individuals 3 Years And Above [id number] Vital Signs Date Vital Result Comment 04/15/2020 2:53pm BP Systolic 134 mmHg BP Diastolic 84 mmHg Body Temperature 98.3 F Heart Rate 79 /min Respiratory Rate 16 /min Height 73 inches 6'1" Weight 283.00 lb [place] Body Weight 184 lb BMI (Body Mass Index) 37.3 kg/m2 O2 % BldC Oximetry 97 % 01/07/2020 2:31pm BP Systolic 116 mmHg BP Diastolic 76 mmHg Body Temperature 97.4 F Heart Rate 80 /min Respiratory Rate 18 /min Height 73 inches 6'1" Weight 273.00 lb [place] Body Weight 184 lb BMI (Body Mass Index) 36.0 kg/m2 O2 % BldC Oximetry 95 % Results Test Acquired Date Facility Test Result H/L Range Note Laboratory test finding 07/11/2020 [facility] Hemoglobin A1c 7.3 % High 4.40 - 6.10 Laboratory test finding 05/13/2020 [place] [id number] [phone] Coronavirus Covid-19 Not Detected Not Dete cted [...] eGFR 80 # Calc 3 eGFR Non-Afr. [place] 69 # Calc 4 Lipid Panel 04/08/2020 [facility] Chol 146 mg/dL 0 - 200 Trig 175 mg/dL 35 - 200 HDL 42 mg/dL 35 - 55 LDL_C 69 Calc Low 75 - 129 Cho/HDL Ratio 3.5 Calc U/A DIP 04/08/2020 [facility] Color yellow QUAL Clarity clear QUAL Glucose-Ua >=1000 g/dL Abnormal Negative Bilirubin,Urine Negative QUAL Negative Ketone Trace mg/dL Abnormal Negative Specific [place] 1.015 # 1.000 - 1.030 Blood - [...] developed and its performance characteristics determined by [employer]. Nucleic acid amplification tests include PCR and [...] deficiency has bee n defined by the [place] of Medicine and an Endocrine Society practice guideline as a level of serum 25-OH vitamin D less than 20 ng/mL (1,2). The Endocrine Society went on to further define vitamin D insufficiency as a level between 21 and 29 ng/mL (2). 1. IOM ([place] of Medicine). 2010. Di etary reference intakes [...] Provider Dx Diagnosis Office Visit 04/15/2020 3:00p [place] [facility] Joe Santiago, RP Brisa Z00.01 Encounter [...] diabetes mellitus without complications [facility] 04/15/2020 Z00.01 Encounter for genera l adult [...] 04/08/2020 R31.9 Hematuria, unspecified Tono Sung D.O., [facility] Plan of Treatment Future Appointment(s):* 07/18/2020 3:15 pm - Joe Santiago, RPA at [facility] Functional Status Description No Information Available Mental Status Description No Information Available Referrals Refer to Dr Reason for Referral Status Appt Date Mendez Clarke M.D. Positive Hemeoccult. Last c olonoscopy 03/10/15 -Dr. Clarke. Sent [address] [place] [address] [phone]
--- OUTSIDE RECORDS SUMMARY | 2020-07-21 06:15 | CCD | Continuity of Care Document ---
Demographics Address [address] [place] [address] Home Phone [phone] Preferred Language Unknown Marital Status Never Christianity Affiliation Unknown Race White Ethnic Group Not or Author Author Mendez 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 Phone Pineda Tono Hayden [facility] [phone] Problems Active Problems Provider Date Hyperlipidemia Joe [...] Consumes 2 glasses of wine per w [place] Recreational Drug Use Denies Drug Use Tobacco Use Start: Unknown Patient has never smoked Exercise Type/Frequency exercises regularly Allergies, Adverse Reactions, Alerts Description No Known Drug Allergies Medications Active Medications SIG Qnty Indications Ordering Provide r Date Onetouch Verio Strips for testing bs once daily dx:e11.9 200units R05 [facility] 04[facility]2020 Onetouch Delica Plus Lancets Extra Fine [...] (replaces losartan 100/25) 90tabs [facility] 05/09/2018 Amlodipine Besylate 5mg Tablets Take 1 Tablet Daily 90tabs [facility] Metformin HCL 500mg Tablets take one tablet by mouth 3x a day with meals 270tabs Jeff Jeffrey.Jeromy., [facility] 12/07/2016 [employer] Ultra System W/Device Kit use as directed glucose testing dx: (e11.9) 1units [facility] D.O., [facility] 08/03/2015 Synthroid 50mcg Tablets take one tablet by mouth every day 90tabs [facility] D[facility] Simvastatin 10mg Tablets take 1 tablet daily [...] CPT Code Status Date Vaccine Lot # [id number] Given 04/15/2020 Influenza Virus Vaccine, Quadrivalent, Slit Virus, Im Use 3Y & Up [id number] 28441 Given 03/20/2019 Influenza Virus Vaccine, Quadrivalent, Slit Virus, Im Use 3Y & Up [id number] 07935 Given 05/09/2018 Influenza Virus Vaccine, Quadrivalent, Slit Virus, Im Use 3Y & Up [id number] 22544 Given 07/04/2017 Pneumococcal Immunization UI [id number] 07459 Given 04/01/2017 Influenza Virus Vaccine, Quadrivalent, Slit Virus, Im Use 3Y & Up [id number] 92760 Given 05/25/2016 Influenza Virus Vaccine, Quadrivalent, Slit Virus, Im Use 3Y & Up [id number] 24381 Given 04/21/2015 Influenza Virus Vac. Split Virus Individuals 3 Years And Above [id number] Vital Signs Date Vital Result Comment 04/15/2020 2:53pm BP Systolic 134 mmHg BP Diastolic 84 mmHg Body Temperature 98.3 F Heart Rate 79 /min Respiratory Rate 16 /min Height 73 inches 6'1" Weight 283.00 lb [place] Body Weight 184 lb BMI (Body Mass Index) 37.3 kg/m2 O2 % BldC Oximetry 97 % 01/07/2020 2:31pm BP Systolic 116 mmHg BP Diastolic 76 mmHg Body Temperature 97.4 F Heart Rate 80 /min Respiratory Rate 18 /min Height 73 inches 6'1" Weight 273.00 lb [place] Body Weight 184 lb BMI (Body Mass Index) 36.0 kg/m2 O2 % BldC Oximetry 95 % Results Test Acquired Date Facility Test Result H/L Range Note Laboratory test finding 07/11/2020 [facility] Hemoglobin A1c 7.3 % High 4.40 - 6.10 Laboratory test finding 05/13/2020 [place] [id number] [phone] Coronavirus Covid-19 Not Detected Not Dete cted [...] eGFR 80 # Calc 3 eGFR Non-Afr. Portuguese 69 # Calc 4 Lipid Panel 04/08/2020 [facility] Chol 146 mg/dL 0 - 200 Trig 175 mg/dL 35 - 200 HDL 42 mg/dL 35 - 55 LDL_C 69 Calc Low 75 - 129 Cho/HDL Ratio 3.5 Calc U/A DIP 04/08/2020 [facility] Color yellow QUAL Clarity clear QUAL Glucose-Ua >=1000 g/dL Abnormal Negative Bilirubin,Urine Negative QUAL Negative Ketone Trace mg/dL Abnormal Negative Specific [place] 1.015 # 1.000 - 1.030 Blood - [...] developed and its performance characteristics determined by [employer]. Nucleic acid amplification tests include PCR and [...] deficiency has bee n defined by the [place] of Medicine and an Endocrine Society practice guideline as a level of serum 25-OH vitamin D less than 20 ng/mL (1,2). The Endocrine Society went on to further define vitamin D insufficiency as a level between 21 and 29 ng/mL (2). 1. IOM ([place] of Medicine). 2010. Di etary reference intakes [...] Provider Dx Diagnosis Office Visit 04/15/2020 3:00p [place] [facility] Joe Santiago, RP A Z00.01 Encounter [...] for immunization Assessments Date Code Description Provider 04/15/2020 Z00.01 Encounter for genera l adult [...] 04/08/2020 R31.9 Hematuria, unspecified Tono Sung D.O., [facility] Plan of Treatment Future Appointment(s):* 07/12/2020 1:30 pm - Joe Santiago RPA at [place] [facility] * 07/18/2020 3:15 pm - Joe Santiago RPA at [facility] Functional Status Description No Information Available Mental Status Description No Information Available Referrals Refer to Dr Reason for Referral Status Appt Date Mendez Clarke M.D. Positive Hemeoccult. Last c olonoscopy 03/10/15 -Dr. Clarke. Sent [address] [place] [address] [phone]
--- OUTSIDE RECORDS SUMMARY | 2020-07-21 06:16 | CCD ---
Author Author [facility] Organization [facility] Address Unknown Phone Unavailable Support Name Relationship Address Phone DONI BROWN GUAR [address] [place], [place] [id number] PERRY BROWN ECON [address] [place], [place] [id number] Care Team Providers Care Tetryl Wringer Operator Name Role Phone RobJustin Unavailable PROBLEMS Type Condition ICD9-CM Code [id number] Code Onset Dates Condition S tatus SNOMED Code Notes Problem Preop testing Z01.818 Active 065389168 Problem Kidney stones N20.0 Active 34137638 Problem Microscopic hematuria R31.2 Active 297707343 ALLERGIES No Known Allergies ENCOUNTERS from 1955 to 2020-07-05 Encounter Location Date Provider Diagnosis [facility] Urology [address] [place] [address] [place] [address] Jun Justin Rivas Kidney stones N20.0 IMMUNIZATIONS No Information SOCIAL HISTORY Tobacco Use: Social History Observation Description Date Details (start date - stop date) Never Smoker Sex Assigned At : Social History Observation Description Sex Assigned At Unknown Education: Question Answer Notes Level of Education: College Sexual Hx: Question Answer Notes Had sex in the last 12 months (vaginal, oral, or anal)? Yes Have you ever had an STD? No with Women only Use protection? No Alcohol Screening: Question Answer Notes Did you have a drink containing alcohol in the past year? Ye s Points 2 Interpretation Negative How often did you have six or more drinks on one occas ion in the past year? Never (0 points) How many drinks did you have on a typica l day when you were drinking in the past year? 1 or 2 (0 points) How often did you have a drink containing alcohol in t he past year? Two to four times a month (2 points) Tobacco Use: Question Answer Notes Are you a: never smoker REASON FOR REFERRAL No Information VITAL SIGNS No information MEDICATIONS Medication SIG (Take, Route, Frequency, Duration) Notes Start Da te End Date Status Aspirin 1 tab Oral Not-Taking Vitamin D (Cholecalciferol) 1000 UNIT 1 tablet Orally Once a day Not-Taking Vitamin C Plus 500 MG Orally Not -Taking Simvastatin 10 10mg oral Activ e Vitamin B Complex - Orally Not-T aking Tylenol 325 MG 1 tablet as needed Orally every 4 hrs Not-Taking Ciprofloxacin HCl 500 MG 1 tablet for your cystoscopy today Oral ly once Mar, Not-Taking One touch ultra blue Acti ve One Touch Ultra System Kit Active Levothroyxine Active Felodipine ER 10 MG 1 tablet Orally Once a day Not-Taking Farxiga 5 MG 1 tablet Orally Once a day for 30 day(s) Active Losartan Potassium 100 MG 1 tablet Orally Once a day Not-Taking Allopurinol 100 MG 1 tablet Orally three times daily Active Metformin HCl 500 MG 1 tablet with a meal Orally bid Active Olmesartan Medoxomil-HCTZ 40-25 MG 1 tablet Orally Once a day for 3 0 day(s) Active Coumadin 2.5 MG 1 tablet Orally Once a day Not-Taking AmLODIPine Besylate 5 MG 1 tablet Orally Once a day for 30 day(s) Active Lidocaine HCl Jelly DETENTION 2 % 1 application to affected area as needed Intravesically prior to cystoscopy in office for 1 days May, Not-Taking PROCEDURES No Information RESULTS No Results REASON FOR VISIT KUB order MEDICAL (GENERAL) HISTORY Type Description Date Medical History hyperlipidemia Medical History hypothoyroidism Medical History vitamin d deficiency Medical History gout Medical History hematuria Medical History hypertension Medical History type 2 diabetes Medical History kidney stones Surgical History colonoscopy 03/10/16 Surgical History hernia repair 2008 Surgical History cyst 1974 Surgical History Oral Surgery 11/21 Surgical History Right knee replacement 11/18/17 Surgical History colonoscopy 04/2020 Hospitalization History surgical reasons 11/18/17 Goals Section No Information Health Concerns No Information MEDICAL EQUIPMENT No Information MENTAL STATUS No Information FUNCTIONAL STATUS No Information ASSESSMENTS Encounter Date Diagnosis Assessment Notes Treatment Notes Treatm ent Clinical Notes Jun, Kidney stones (ICD-10 - N20.0) PLAN OF TREATMENT Treatment Notes Test Name Order Date [facility] Abdomen,Flat Plate (KUB) 2020-07-05 Next Appt Details Provider Name:Luisana Rowe, 2020-08- 0 08:30:00 AM, [id number] [place], [address], Insurance Providers Payer Name Payer Address Payer Phone Insured Name Patient Relati onship to Insured Coverage Start Date Coverage End Date [facility] [address] [address] [facility] [phone] DONI BROWN self
--- OUTSIDE RECORDS SUMMARY | 2020-07-21 06:16 | CCD ---
Author Author [facility] Organization [facility] Address Unknown Phone Unavailable Support Name Relationship Address Phone DONI BROWN GUAR [address] [place], [place] [phone] PERRY BROWN ECON [address] [place], [place] [address] Care Team Providers Care Environmental Health And Safety Manager Name Role Phone RobJustin Unavailable PROBLEMS Type Condition ICD9-CM Code [id number] Code Onset Dates Condition S tatus SNOMED Code Notes Problem Preop testing Z01.818 Active 120806862 Problem Kidney stones N20.0 Active 10109817 Problem Microscopic hematuria R31.2 Active 939885646 ALLERGIES No Known Allergies ENCOUNTERS from 1955 to 2020-06-21 Encounter Location Date Provider Diagnosis [facility] Urology [address] [place] [address] [place] [address] Jun Justin Rivas Kidney stones N20.0 IMMUNIZATIONS [...] REASON FOR REFERRAL No Information VITAL SIGNS Weight 288 lbs Jun, Height 6'2 in Jun, BMI 39.06 kg/m2 Jun, Heart Rate 61 /min Jun, Respiratory Rate 18 /min Jun, Temperature 97.5 degrees Fahrenheit Jun, Oximetry 97% Jun, Blood pressure systolic 142 mm Hg Jun, Blood pressure diastolic 84 mm Hg Jun, MEDICATIONS Medication SIG (Take, Route, Frequency, Duration) [...] for 30 day(s) Active Lidocaine HCl Jelly ALF 2 % 1 application to affected area as needed Intravesically prior to cystoscopy in office for 1 days May, Not-Taking PROCEDURES No Information RESULTS No Results REASON FOR VISIT 1 YEAR FU MEDICAL (GENERAL) HISTORY Type Description Date Medical [...] Notes Jun, Kidney stones (ICD-10 - N20.0) - continue drinking plenty of water w/ lemon juice daily - get KUB - will call w/ KUB results PLAN OF TREATMENT Treatment Notes Assessment Notes Clinical Notes Kidney stones - continue drinking plenty of water w/ lemon juice daily- get KUB- will call w/ KUB results Treatment Notes Test Name Order Date [facility] Abdomen,Flat Plate (KUB) 2020-06-21 Next Appt Details we will call w/ results Reason: Insurance Providers Payer Name Payer Address Payer Phone Insured Name Patient Relati onship to Insured Coverage Start Date Coverage End Date [facility] [address] [address] [facility] [phone] DONI BROWN self
--- OUTSIDE RECORDS SUMMARY | 2020-07-21 06:16 | CCD ---
Author Author [facility] Organization [facility] Address Unknown Phone Unavailable Support Name Relationship Address Phone DONI BROWN GUAR [address] [place], [place] [phone] PERRY BROWN ECON [address] [place], [place] [address] Care Team Providers Care Assembly Line Supervisor Name Role Phone RobNimeshin Unavailable PROBLEMS Type Condition ICD9-CM Code [id number] Code Onset Dates Condition S tatus SNOMED Code Notes Problem Preop testing Z01.818 Active 334286246 Problem Kidney stones N20.0 Active 47525496 Problem Microscopic hematuria R31.2 Active 561739386 ALLERGIES No Known Allergies ENCOUNTERS from 1955 to 2020-07-04 Encounter Location Date Provider Diagnosis [facility] Urology [address] [place] [address] [place] [address] Jun Justin Rivas Kidney stones N20.0 and Preop testing Z0 1.818 IMMUNIZATIONS No Information SOCIAL HISTORY Tobacco Use: [...] for 30 day(s) Active Lidocaine HCl Jelly FPC 2 % 1 application to affected area as needed Intravesically prior to cystoscopy in office for 1 days May, Not-Taking PROCEDURES No Information RESULTS No Results REASON FOR VISIT KUB, Surgery MEDICAL (GENERAL) HISTORY Type Description Date Medical [...] Notes Jun, Kidney stones (ICD-10 - N20.0) Jun, Preop testing (ICD-10 - Z01.818) PLAN OF TREATMENT Treatment Notes Test Name Order Date CBC - Complete Blood Count 2020-07-04 Basic Metabolic Profile (BMP) 2020-07-04 [facility] Chest, 2 view (PA\Lat) 2020-07-04 Electrocardiogram (EKG) 2020-07-04 PT & APTT 2020-07-04 Insurance Providers Payer Name Payer Address Payer Phone Insured Name Patient Relati onship to Insured Coverage Start Date Coverage End Date [facility] [employer] [facility] [address] [address] [facility] [address] [phone] DONI BROWN self
--- OUTSIDE RECORDS SUMMARY | 2020-07-21 06:16 | CCD ---
Continuity of Care Document (CCD) Created on: 07/11/2020 Anu Mendez External Reference #: [id number] : 1955 Sex: Male Demographics Address [address] [place] [address] Home Phone [phone] Preferred Language Unknown Marital Status Never Latter Day Affiliation Unknown Race White Ethnic Group Not or Author Author Laboratory Mendez [facility] Unknown Address [address] [facility] [address] [place] [address] Phone [phone] Care Team Providers Care Human Resources Technician Name Role Phone Tono Sung D.O. [facility] [phone] Problems Active Problems Provider Date Hyperlipidemia Joe [...] Consumes 2 glasses of wine per w [place] Recreational Drug Use Denies Drug Use Tobacco Use Start: Unknown Patient has never smoked Exercise Type/Frequency exercises regularly Allergies, Adverse Reactions, Alerts Description No Known Drug Allergies Medications Active Medications SIG Qnty Indications Ordering Provide r Date Onetouch Verio Strips for testing bs once daily dx:e11.9 200units R05 [facility] 04/2020 On[employer] Delica Plus Lancets [...] (replaces losartan 100/25) 90tabs [facility]., [facility] 05/09/2018 Amlodipine Besylate 5mg Tablets Take 1 Tablet Daily 90tabs [facility]., [facility] Metformin HCL 500mg Tablets take one tablet by mouth 3x a day with meals 270tabs Jeff Jeffrey.Jeromy., [facility] 12/07/2016 [employer] Ultra System W/Device Kit use as directed glucose testing dx: (e11.9) 1units [facility] D.[facility]., [facility] 08/03/2015 Synthroid 50mcg Tablets take one tablet by mouth every day 90tabs [facility]., [facility] Simvastatin 10mg Tablets take 1 [...] CPT Code Status Date Vaccine Lot # 77770 Given 04/15/2020 Influenza Virus Vaccine, Quadrivalent, Slit Virus, Im Use 3Y & Up [id number] 04704 Given 03/20/2019 Influenza Virus Vaccine, Quadrivalent, Slit Virus, Im Use 3Y & Up [id number] 97781 Given 05/09/2018 Influenza Virus Vaccine, Quadrivalent, Slit Virus, Im Use 3Y & Up [id number] 57610 Given 07/04/2017 Pneumococcal Immunization UI [id number] 28695 Given 04/01/2017 Influenza Virus Vaccine, Quadrivalent, Slit Virus, Im Use 3Y & Up [id number] 13857 Given 05/25/2016 Influenza Virus Vaccine, Quadrivalent, Slit Virus, Im Use 3Y & Up [id number] 16617 Given 04/21/2015 Influenza Virus Vac. Split Virus Individuals 3 Years And Above [id number] Vital Signs Date Vital Result Comment 04/15/2020 2:53pm BP Systolic 134 mmHg BP Diastolic 84 mmHg Body Temperature 98.3 F Heart Rate 79 /min Respiratory Rate 16 /min Height 73 inches 6'1" Weight 283.00 lb [place] Body Weight 184 lb BMI (Body Mass Index) 37.3 kg/m2 O2 % BldC Oximetry 97 % 01/07/2020 2:31pm BP Systolic 116 mmHg BP Diastolic 76 mmHg Body Temperature 97.4 F Heart Rate 80 /min Respiratory Rate 18 /min Height 73 inches 6'1" Weight 273.00 lb [place] Body Weight 184 lb BMI (Body Mass Index) 36.0 kg/m2 O2 % BldC Oximetry 95 % Results Test Acquired Date Facility Test Result H/L Range Note Laboratory test finding 07/11/2020 [facility] Hemoglobin A1c <pending> Laboratory test finding 05/13/2020 [place] [id number] [phone] Coronavirus Covid-19 Not Detected Not Dete cted [...] eGFR 80 # Calc 3 eGFR Non-Afr. [place] 69 # Calc 4 Lipid Panel 04/08/2020 [facility] Chol 146 mg/dL 0 - 200 Trig 175 mg/dL 35 - 200 HDL 42 mg/dL 35 - 55 LDL_C 69 Calc Low 75 - 129 Cho/HDL Ratio 3.5 Calc U/A DIP 04/08/2020 [facility] Color yellow QUAL Clarity clear QUAL Glucose-Ua >=1000 g/dL Abnormal Negative Bilirubin,Urine Negative QUAL Negative Ketone Trace mg/dL Abnormal Negative Specific [place] 1.015 # 1.000 - 1.030 Blood [...] developed and its performance characteristics determined by [employer]. Nucleic acid amplification tests include PCR and [...] deficiency has bee n defined by the [place] of Medicine and an Endocrine Society practice guideline as a level of serum 25-OH vitamin D less than 20 ng/mL (1,2). The Endocrine Society went on to further define vitamin D insufficiency as a level between 21 and 29 ng/mL (2). 1. IOM ([place] of Medicine). 2010. Di etary reference intakes [...] Provider Dx Diagnosis Office Visit 04/15/2020 3:00p [facility] Joe Santiago, RP A Z00.01 Encounter [...] diabetes mellitus without complications Tono Sung D.O., [facility] 04/08/2020 E78.5 Hyperlipidemia, unspecified [facility]anda [facility]., [facility] 04/08/2020 E03.9 Hypothyroidism, unspecified [facility]., [facility] 04/08/2020 R31.9 Hematuria, unspecified Tono Sung D.O., [facility] Plan of Treatment Future Appointment(s):* 07/12/2020 1:30 pm - Joe Santiago RPA at [facility] * 07/18/2020 3:15 pm - Joe Santiago, ALYCE at [facility] Functional Status Description No Information Available Mental Status Description No Information Available Referrals Refer to Dr Reason for Referral Status Appt Date Mendez Clarke M.D. Positive Hemeoccult. Last c olonoscopy 03/10/15 -Dr. Clarke. Sent [address] [place] [address] [phone]
--- OUTSIDE RECORDS SUMMARY | 2020-07-21 06:17 | CCD | Continuity of Care Document ---
Demographics Address [address] [place] [address] Home Phone [phone] Preferred Language Unknown Marital Status Never Hindu Affiliation Unknown Race White Ethnic Group Not or Author Author Mendez [facility] Organization Unknown Address [address] [facility] [address] [place] [address] Phone [phone] Care Team Providers Care Jail Keeper Name Role Phone PinedaTono Hayden [facility] [phone] Problems Active Problems Provider Date Hyperlipidemia Joe [...] Consumes 2 glasses of wine per w [place] Recreational Drug Use Denies Drug Use Tobacco Use Start: Unknown Patient has never smoked Exercise Type/Frequency exercises regularly Allergies, Adverse Reactions, Alerts Description No Known Drug Allergies Medications Active Medications SIG Qnty Indications Ordering Provide r Date Onetouch Verio Strips for testing bs once daily dx:e11.9 200units R05 [facility] 04[facility]2020 Onetouch Delica Plus Lancets Extra [...] (replaces losartan 100/25) 90tabs [facility]., [facility] 05/09/2018 Amlodipine Besylate 5mg Tablets Take 1 Tablet Daily 90tabs [facility] Metformin HCL 500mg Tablets take one tablet by mouth 3x a day with meals 270tabs Jeff Jeffrey.Jeromy., [facility] 12/07/2016 [employer] Ultra System W/Device Kit use as directed glucose testing dx: (e11.9) 1units [facility] D.[facility]., [facility] 08/03/2015 Synthroid 50mcg Tablets take one tablet by mouth every day 90tabs [facility] D.[facility]., [facility] Simvastatin 10mg Tablets take 1 tablet daily 90tabs Tono Sung D.O., [facility] Allopurinol 100mg Tablets take 1 tablet [...] CPT Code Status Date Vaccine Lot # [id number] Given 04/15/2020 Influenza Virus Vaccine, Quadrivalent, Slit Virus, Im Use 3Y & Up [id number] 43511 Given 03/20/2019 Influenza Virus Vaccine, Quadrivalent, Slit Virus, Im Use 3Y & Up [id number] 99285 Given 05/09/2018 Influenza Virus Vaccine, Quadrivalent, Slit Virus, Im Use 3Y & Up [id number] 77739 Given 07/04/2017 Pneumococcal Immunization UI [id number] 28534 Given 04/01/2017 Influenza Virus Vaccine, Quadrivalent, Slit Virus, Im Use 3Y & Up [id number] 34630 Given 05/25/2016 Influenza Virus Vaccine, Quadrivalent, Slit Virus, Im Use 3Y & Up [id number] 52635 Given 04/21/2015 Influenza Virus Vac. Split Virus Individuals 3 Years And Above [id number] Vital Signs Date Vital Result Comment 04/15/2020 2:53pm BP Systolic 134 mmHg BP Diastolic 84 mmHg Body Temperature 98.3 F Heart Rate 79 /min Respiratory Rate 16 /min Height 73 inches 6'1" Weight 283.00 lb [place] Body Weight 184 lb BMI (Body Mass Index) 37.3 kg/m2 O2 % BldC Oximetry 97 % 01/07/2020 2:31pm BP Systolic 116 mmHg BP Diastolic 76 mmHg Body Temperature 97.4 F Heart Rate 80 /min Respiratory Rate 18 /min Height 73 inches 6'1" Weight 273.00 lb [place] Body Weight 184 lb BMI (Body Mass Index) 36.0 kg/m2 O2 % BldC Oximetry 95 % Results Test Acquired Date Facility Test Result H/L Range Note Laboratory test finding 05/13/2020 [place] [address] [phone] Coronavirus Covid-19 Not Detected Not Dete cted [...] eGFR 80 # Calc 3 eGFR Non-Afr. [place] 69 # Calc 4 Lipid Panel 04/08/2020 [facility] Chol 146 mg/dL 0 - 200 Trig 175 mg/dL 35 - 200 HDL 42 mg/dL 35 - 55 LDL_C 69 Calc Low 75 - 129 Cho/HDL Ratio 3.5 Calc U/A DIP 04/08/2020 [facility] Color yellow QUAL Clarity clear QUAL Glucose-Ua >=1000 g/dL Abnormal Negative Bilirubin,Urine Negative QUAL Negative Ketone Trace mg/dL Abnormal Negative Specific [place] 1.015 # 1.000 - 1.030 Blood - Ua Negative QUAL Negative pH 5.5 # 5.0 - 8.0 Protein Negative mg/dL Negative Urobilinogen 0.2 NA 0.2 - 1.0 Nitrite Negative QUAL Negative Leukocyte Negative QUAL Negative Laboratory test finding 04/08/2020 [facility] Hemoglobin A1c 7.0 % High 4.40 - 6.10 Laboratory test finding 04/08/2020 [facility] Vitamin D, 25-Hydroxy 28.7 ng/mL Low 30.0-100.0 5 CBC 12/31/2019 [facility] WBC 5.5 10E3/uL 4.1 - 10.9 6 RBC 5.19 10E6/uL 4.20 - 6.30 HGB 17.1 g/dL 12.0 - 18.0 HCT 46.9 % 37.0 - 51.0 MCV 90.4 fL 80.0 - 97.0 MCH 32.9 pg High 26.0 - 32.0 MCHC 36.5 g/dL High 31.0 - 36.0 PLT 111 10E3/uL Low 140 - 440 RDW-CV 13.7 % 11.5 - 14.5 Lym% 32.7 % 10.0 - 58.5 Neut% 57.5 % 37.0 - 92.0 MXD% 9.8 % 0.1 - 24.0 Lym# 1.8 10E3/uL 0.6 - 4.1 Neut# 3.2 % 2.0 - 7.8 MXD# 0.5 10E3/uL 0.0 - 1.8 MPV 11.1 fL 9.0 - 13.0 CMP 12/31/2019 [facility] Glu 156 mg/dL High 70 - 110 BUN 18 mg/dL 8 - 23 Creat 1.1 mg/dL 0.7 - 1.2 BUN/Creatinine Ratio 17.0 CALC Na 140 mmol/L 136 - 145 K 3.7 mmol/L 3.5 - 5.1 CL 101.5 mmol/L 98.0 - 107.0 Co2 25.4 mmol/L 22.0 - 29.0 CA 10.3 mg/dL High 8.6 - 10.2 TP 7.0 g/dL 6.6 - 8.7 Alb 4.7 g/dL 3.5 - 5.2 A/G Ratio 2.1 CALC Globulin 2.3 CALC Alp 68.6 U/L 40 - 129 Alt (SGPT) 34 U/L 0 - 41 Ast (Sgot) 43 U/L High 0 - 40 Tbili 0.80 mg/dL 0.0 - 1.2 Osmolality-Calculated 284.5 CALC Anion Gap 17 mmol/L eGFR 80 # Calc 7 eGFR Non-Afr. [place] 69 # Calc 8 Lipid Panel 12/31/2019 [facility] Chol 148 mg/dL 0 - 200 Trig 232 mg/dL High 35 - 200 HDL 38 mg/dL 35 - 55 LDL_C 64 Calc Low 75 - 129 Cho/HDL Ratio 3.9 Calc Laboratory test finding 12/31/2019 [facility] Hemoglobin A1c 7.0 % High 4.40 - 6.10 1 This nucleic acid amplificat ion test was developed and its performance characteristics determined by [employer]. Nucleic acid amplification tests include PCR and [...] deficiency has bee n defined by the [place] of Medicine and an Endocrine Society practice guideline as a level of serum 25-OH vitamin D less than 20 ng/mL (1,2). The Endocrine Society went on to further define vitamin D insufficiency as a level between 21 and 29 ng/mL (2). 1. IOM ([place] of Medicine). 2010. Di etary reference intakes for calcium and D. [place]: The National Academ91 [employer]. 2. Rosanna MF, Chloe GILBERT, Robin mcneil BARAJAS, et al. Evaluation, treatment, and prevention of vitamin D deficiency: an Endocrine Society clinical practice guideline. JCEM. 2010; 96(7):1911-30. 6 NORMAL RANGES Age WBC RBC HGB HCT MCV PLT Adult M 4.1-10.9 4.20-6.30 12.0-18.0 37.0-51.0 80-97 140-440 Adult F 4.1-10.9 4.04-5.48 12.0-18.0 37.0-51.0 80-97 140-440 0 -1 Yr 5.0-20.0 3.9-5.9 15-18 MV: 44 MV: 91 MV: 277 2-9 Yr. 6.0-17.0 3.8-5.4 11-13 MV: 37 MV: 78 MV: 300 10 Yrs. 5.0-13.0 3.8-5.4 12-15 MV: 39 MV: 80 MV: 250 NOTE: * FOR ADULT BLACK MALES AND FEMALES, NORMAL WBC IS 2.9-7.7 K/ML * FOR ADULT BLACK MALES AND FEMALES, NORMAL RBC,HGB, AND HCT IS 5% LESS SOURCE FOR DATA: [employer] DYN 1800 OPERATION MANUAL( AUTOMATED BLOOD COUNTS AND DIFF.) APPENDIX B-3 CHRONIC KIDNEY DISEASE STAGING PER NKF: MALE GFR INTERPRETATION: 20-49 YRS: [...] ADOLESCENTS REPRESENTS INDIVIDUALA AGED 2-19 YEARS EXCLUSIVE. 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, unsp E55.9 Vitamin D deficiency, unspec ified N20.0 Calculus of kidney R31.9 Hematuria, unspecified Assessments Date Code Description Provider 04/15/2020 Z00.01 [...] Sung D.O., [facility] 04/08/2020 E78.5 Hyperlipidemia, unspecified Jeff Camara.O., [facility] 04/08/2020 E03.9 Hypothyroidism, unspecified Ananda Sung D.O., [facility] 04/08/2020 R31.9 Hematuria, unspecified Tono Sung D.O., [facility] 01/07/2020 I10 Essential (primary) hypertension Joe Santiago, RPA 01/07/2020 E03.9 Hypothyroidism, unspecified Joe Park, RPA 01/07/2020 E78.5 Hyperlipidemia, unspecified Joe Park, RPA 01/07/2020 G47.33 Obstructive sleep apnea (adult) (pediatric) Joe Santiago, RPA 01/07/2020 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 12/31/2019 E11.9 Type 2 diabetes mellitus without complications Markos Mendieta M.D. 12/31/2019 I10 Essential (primary) hypertension Markos Mendieta M.D. Plan of Treatment Future Appointment(s):* 07/11/2020 9:00 am - Laboratory [place] Schedule at [facility] * 07/18/2020 3:15 pm - Joe Santiago, RPA at [facility] Functional Status Description No Information Available Mental Status Description No Information Available Referrals Refer to Dr Reason for Referral Status Appt Date Mendez Clarke M.D. Positive Hemeoccult. Last c olonoscopy 03/10/15 -Dr. Clarke. Sent [address] [place] [address] [phone]
--- OUTSIDE RECORDS SUMMARY | 2020-07-21 06:17 | CCD | Continuity of Care Document ---
Demographics Address [address] [place] [address] Home Phone [phone] Preferred Language Unknown Marital Status Orthodox Affiliation Unknown Race White Ethnic Group Not or Author Author Rich Resource Schedule, Steve id S Organization Unknown Address [address] [place] [id number] Phone [phone] Care Team Providers Care Ethyl Blender Name Role Phone Joe Santiago AUTM [phone] [facility] Unavailable Problems Active Problems Provider Date Essential hypertension Mendez Clarke MD Onset: 04/25/2020 Screening for malignant neoplasm of colon Mendez Clarke MD Onset: 04/27/2020 Social History Type Date Description Comments Sex Unknown Tobacco Use Start: Unknown Never Smoked Cigarettes Tobacco Use Start: Unknown Never Smoked Cigars Tobacco Use Start: Unknown Never Smoked A Pipe Tobacco Use Start: Unknown Never Used Smokeless Tobacco ETOH Use Occasionally consumes alcohol Tobacco Use Start: Unknown Patient has never smoked Recreational Drug Use Denies Drug Use Allergies, Adverse Reactions, Alerts Description No Known Drug Allergies Medications Active Medications SIG Qnty Indications Ordering Provide r Date Suprep Bowel Prep Kit 17.5-3.13-1.6GM/177ML Solution use as directed 7pm and 6 hours before colonoscopy Mendez Clarke MD 04/27/[address] see preprocedure instructions 4tabs Mendez Clarke MD 04/27/2020 Miralax 17GM/Scoop Powder see preprocedure instructions. 238gm Mendez Clarke MD 04/27/2020 Zofran 4mg Tablets take 1 tab by mouth every 8 hours for nausea 2tabs Mendez Clarke MD 2019 Farxiga 5mg Tablets 1 by mouth every day Unknown Olmesartan Medoxomil/Amlodipine/Hydrochl orothiazide 40-5-25mg Tablets one by mouth daily Unknown Amlodipine Besylate 5mg Tablets 1 by mouth every day Unknown Metformin HCL 500mg Tablets 1 tab by mouth three times a day Unknown Synthroid 50mcg Tablets 1 by mouth every day Unknown Simvastatin 10mg Tablets 1 by mouth every day Unknown Allopurinol 100mg Tablets 1 by mouth three times a day Unknown Immunizations Description No Information Available Vital Signs Date Vital Result Comment 04/27/2020 2:20pm BP Systolic 144 mmHg BP Diastolic 86 mmHg Heart Rate 75 /min Body Temperature 98.6 F Respiratory Rate 16 /min Weight 270.00 lb Weight 122.472 kg Height 73 inches 6'1" BMI (Body Mass Index) 35.6 kg/m2 BSA (Body Surface Area) 2.44 m2 Results Test Acquired Date Facility Test Result H/L Range Note Xray 05/03/2020 [facility] [address] [place] [address] [phone] Upper GI Single Contrast <pending> Procedures Description No Information Available Medical Devices Description No Information Available Encounters Description No Information Available Assessments Date Code Description Provider 04/27/2020 Z12.11 Encounter for screening for romel gnant neoplasm of colon Mendez Clarke MD Plan of Treatment Future Appointment(s):* 05/17/2020 6:00 am - Mendez Clarke MD at [facility] 04/27/2020 - Mendez Clarke MD* Z12.11 Encounter for screening for malignant neoplasm of colon* Comments:* Impression: Guaiac positive stoolPlan: #1 colonoscopy as of the guaiac positive stool. #2 patient will also need upper GI series as he has no upper GI symptoms for endoscopy. Functional Status Description No Information Available Mental Status Description No Information Available Referrals Description No Information Available
--- OUTSIDE RECORDS SUMMARY | 2020-07-21 06:17 | CCD | Continuity of Care Document ---
Author Author Mendez LANDON MD Organization Unknown Address [address] [place] [address] Phone [phone] Care Team Providers Care Grain Elevator Motor Starter Name Role Phone Joe Santiago AUTM [phone] [facility] Unavailable Problems Active Problems Provider Date Essential hypertension Mendez Landon MD Onset: 04/25/2020 Social History Type Date Description Comments Sex [...] SIG Qnty Indications Ordering Provide r Date Farxiga 5mg Tablets 1 by mouth every [...] BSA (Body Surface Area) 2.44 m2 Results Description No Information Available Procedures Description No Information Available Medical Devices Description No Information Available Encounters Description No Information Available Assessments Description No Information Available Plan of Treatment No Information Available Functional Status Description No Information Available Mental Status Description No Information Available Referrals Description No Information Available
--- OUTSIDE RECORDS SUMMARY | 2020-07-21 06:17 | CCD ---
Continuity of Care Document (CCD) Created on: 04/27/2020 [email or web address] External Reference #: [id number] : 1955 Sex: Male Author Author Mendez [facility] Organization Unknown Address [address] [facility] [address] [place] [address] Phone [phone] Care Team Providers Care Shutdown Planner Name Role Phone PinedaTono Hayden [facility] [phone] Problems Active Problems Provider Date Hyperlipidemia Joe [...] Consumes 2 glasses of wine per w wiyot Recreational Drug Use Denies Drug Use Tobacco Use Start: Unknown Patient has never smoked Exercise Type/Frequency exercises regularly Allergies, Adverse Reactions, Alerts Description No Known Drug Allergies Medications Active Medications SIG Qnty Indications Ordering Provide r Date Onetouch Verio Strips for testing bs once daily dx:e11.9 200units R05 [facility] 04/2020 Onetouch Delica Plus Lancets Extra [...] (replaces losartan 100/25) 90tabs [facility] D[facility] 05/09/2018 Amlodipine Besylate 5mg Tablets Take 1 Tablet Daily 90tabs [facility] D[facility] Metformin HCL 500mg Tablets take one tablet by mouth 3x a day with meals 270tabs Jeff Jeffrey.Jeromy., [facility] 12/07/2016 [employer]Spot Ultra System W/Device Kit use as directed glucose testing dx: (e11.9) 1units T[facility]ung D[facility]O., [facility] 08/03/2015 Synthroid 50mcg Tablets take one tablet by mouth every day 90tabs [facility] D[facility] Simvastatin 10mg Tablets take 1 tablet [...] CPT Code Status Date Vaccine Lot # [id number] Given 04/15/2020 Influenza Virus Vaccine, Quadrivalent, Slit Virus, Im Use 3Y & Up [id number] 57256 Given 03/20/2019 Influenza Virus Vaccine, Quadrivalent, Slit Virus, Im Use 3Y & Up [id number] 55582 Given 05/09/2018 Influenza Virus Vaccine, Quadrivalent, Slit Virus, Im Use 3Y & Up [id number] 25567 Given 07/04/2017 Pneumococcal Immunization UI [id number] 18917 Given 04/01/2017 Influenza Virus Vaccine, Quadrivalent, Slit Virus, Im Use 3Y & Up [id number] 20600 Given 05/25/2016 Influenza Virus Vaccine, Quadrivalent, Slit Virus, Im Use 3Y & Up [id number] 18547 Given 04/21/2015 Influenza Virus Vac. Split Virus Individuals 3 Years And Above [id number] Vital Signs Date Vital Result Comment 04/15/2020 2:53pm BP Systolic 134 mmHg BP Diastolic 84 mmHg Body Temperature 98.3 F Heart Rate 79 /min Respiratory Rate 16 /min Height 73 inches 6'1" Weight 283.00 lb [facility] Body Weight 184 lb BMI (Body Mass Index) 37.3 kg/m2 O2 % BldC Oximetry 97 % 01/07/2020 2:31pm BP Systolic 116 mmHg BP Diastolic 76 mmHg Body Temperature 97.4 F Heart Rate 80 /min Respiratory Rate 18 /min Height 73 inches 6'1" Weight 273.00 lb [facility] Body Weight 184 lb BMI (Body Mass Index) 36.0 kg/m2 O2 % BldC Oximetry 95 % Results Test Acquired Date Facility Test Result H/L Range Note Laboratory test finding 04/08/2020 [facility] TSH 1.998 ulU/mL 0.60 - 4.8 Laboratory test finding 04/08/2020 [facility] PSA, Total 2.44 ng/mL 0.0 - 4.0 CMP 04/08/2020 [facility] Glu 170 mg/dL High 70 - 110 1 BUN 19 mg/dL 8 - 23 Creat [...] Gap 15 mmol/L eGFR 80 # Calc 2 eGFR Non-Afr. [place] 69 # Calc 3 Lipid Panel 04/08/2020 [facility] Chol 146 mg/dL 0 - 200 Trig 175 mg/dL 35 - 200 HDL 42 mg/dL 35 - 55 LDL_C 69 Calc Low 75 - 129 Cho/HDL Ratio 3.5 Calc U/A DIP 04/08/2020 [facility] Color yellow QUAL Clarity clear QUAL Glucose-Ua >=1000 g/dL Abnormal Negative Bilirubin,Urine Negative QUAL Negative Ketone Trace mg/dL Abnormal Negative Specific [place] 1.015 # 1.000 - 1.030 Blood - Ua Negative QUAL Negative pH 5.5 # 5.0 - 8.0 Protein Negative mg/dL Negative Urobilinogen 0.2 NA 0.2 - 1.0 Nitrite Negative QUAL Negative Leukocyte Negative QUAL Negative Laboratory test finding 04/08/2020 [facility] Hemoglobin A1c 7.0 % High 4.40 - 6.10 Laboratory test finding 04/08/2020 [facility] Vitamin D, 25-Hydroxy 28.7 ng/mL Low 30.0-100.0 4 CBC 12/31/2019 [facility] WBC 5.5 10E3/uL 4.1 - 10.9 5 RBC 5.19 10E6/uL 4.20 - 6.30 HGB [...] Gap 17 mmol/L eGFR 80 # Calc 6 eGFR Non-Afr. [place] 69 # Calc 7 Lipid Panel 12/31/2019 [facility] Chol 148 mg/dL 0 - 200 Trig 232 mg/dL High 35 - 200 HDL 38 mg/dL 35 - 55 LDL_C 64 Calc Low 75 - 129 Cho/HDL Ratio 3.9 Calc Laboratory test finding 12/31/2019 [facility] Hemoglobin A1c 7.0 % High 4.40 - 6.10 1 CHRONIC KIDNEY DISEASE STAGI NG PER NKF: [...] ADOLESCENTS REPRESENTS INDIVIDUALA AGED 2-19 YEARS EXCLUSIVE. 2 CKD-EPI 3 CKD-EPI 4 Vitamin D deficiency has bee n defined by the [employer] and an Endocrine Society practice guideline as a level of serum 25-OH vitamin D less than 20 ng/mL (1,2). The Endocrine Society went on to further define vitamin D insufficiency as a level between 21 and 29 ng/mL (2). 1. IOM ([place] [employer]). 2010. Di etary reference intakes for calcium and D. [place]: The National Academies Press. 2. Rosanna MF, Chloe GILBERT, Robin mcneil BARAJAS, et al. Evaluation, treatment, and prevention of vitamin D deficiency: an Endocrine Society clinical practice guideline. JCEM. 2010; 96(7):1911-30. 5 NORMAL RANGES Age WBC RBC HGB HCT [...] HCT IS 5% LESS SOURCE FOR DATA: [employer] 1800 OPERATION MANUAL( AUTOMATED BLOOD COUNTS AND [...] ADOLESCENTS REPRESENTS INDIVIDUALA AGED 2-19 YEARS EXCLUSIVE. 6 CKD-EPI 7 CKD-EPI Procedures Description No Information Available Medical Devices Description No Information Available Encounters Type Date Location Provider Dx Diagnosis Office Visit 04/15/2020 3:00p [facility] Joe Santiago, RP A Z00.01 Encounter [...] Encounter for immunization Office Visit 01/07/2020 2:40p [facility] Joe Santiago, RP A I10 Essential [...] Santiago, RPA 01/07/2020 R31.9 Hematuria, unspecified Gama Santiago, RPA 12/31/2019 E78.5 Hyperlipidemia, unspecified [facility] Markos almonte M.D. 12/31/2019 E11.9 Type 2 diabetes mellitus without complications Markos Mendieta M.D. 12/31/2019 I10 Essential (primary) hypertension Markos Mendieta M.D. Plan of Treatment No Information Available Functional Status Description No Information Available Mental Status Description No Information Available Referrals Refer to Dr Stokes for Referral Status Appt Date eMndez Clarke M.D. Positive Hemeoccult. Last c olonoscopy 03/10/15 -Dr. Clarke. Sent [address] [place], [place] [id number] [phone]
--- OUTSIDE RECORDS SUMMARY | 2020-07-21 06:18 | CCD ---
Demographics Address [address] [place] [address] Home Phone [phone] Preferred Language Somali Marital Status Congregation Affiliation [employer] Not or Author Author [facility] Organization [facility] Address Unknown Phone Unavailable Support Name Relationship Address Phone Sukumar Devries DDS Next Of Kin [address] [place] [address] UN Next Of Kin Unknown Unavailable RE Next Of Kin Unknown Unavailable CONTACT, OTHER NO Next Of Kin - -, - - - PERRY BROWN Next Of Kin [address] [place] [address] Jonathan BROWN Next Of Kin [address] [place] [address] ELSIE BROWN ECON [address] [place] [address] [phone] PERRY BROWN ECON [address] [place] [address] [phone] Care Team 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 Contact Lens Name Role Phone Kandi GALAN MD Unavailable Unavailable Kandi GALAN MD Unavailable Unavailable Kandi GALAN MD Unavailable Unavailable Kandi GALAN MD Unavailable Unavailable Kandi GALAN MD Unavailable Unavailable Kandi GALAN MD Unavailable Unavailable Kandi GALAN MD Unavailable Unavailable Kandi GALAN MD Unavailable Unavailable Kandi GALAN MD Unavailable Unavailable Kandi GALAN MD Unavailable Unavailable Kandi GALAN MD Unavailable Unavailable Kandi GALAN MD Unavailable Unavailable Kandi GALAN MD Unavailable Unavailable Kandi GALAN MD Unavailable Unavailable Kandi GALAN MD Unavailable Unavailable Kandi GALAN MD Unavailable Unavailable Kandi GALAN MD Unavailable Unavailable Kandi GALAN MD Unavailable Unavailable Kandi GALAN MD Unavailable Unavailable Kandi GALAN MD Unavailable Unavailable Kandi GALAN MD Unavailable Unavailable Kandi GALAN MD Unavailable Unavailable Kandi GALAN MD Unavailable Unavailable Kandi GALAN MD Unavailable Unavailable Kandi GALAN MD Unavailable Unavailable Kandi GALAN MD Unavailable Unavailable Kandi GALAN MD Unavailable Unavailable Kandi GALAN MD Unavailable Unavailable Kandi GALAN MD Unavailable Unavailable Kandi GALAN MD Unavailable Unavailable Kandi GALAN MD Unavailable Unavailable Kandi GALAN MD Unavailable Unavailable Kandi GALAN MD Unavailable Unavailable Kandi GALAN MD Unavailable Unavailable Kandi GALAN MD Unavailable Unavailable Kandi GALAN MD Unavailable Unavailable Kandi GALAN MD Unavailable Unavailable Kandi GALAN MD Unavailable Unavailable Kandi GALAN MD Unavailable Unavailable Kandi GALAN MD Unavailable Unavailable Pamela, D Joe PA Unavailable Unavailable Pamela, D Joe PA Unavailable Unavailable Pamela, D Joe PA Unavailable Unavailable Pamela, D Joe PA Unavailable Unavailable Pamela, D Joe PA Unavailable Unavailable Pamela, D Joe PA Unavailable Unavailable Pamela, D Joe PA Unavailable Unavailable Pamela, D Joe PA Unavailable Unavailable Pamela, D Joe PA Unavailable Unavailable Pamela, D Joe PA Unavailable Unavailable Pamela, D Joe PA Unavailable Unavailable Pamela, D Joe PA Unavailable Unavailable Pamela, D Joe PA Unavailable Unavailable Pamela, D Joe PA Unavailable Unavailable Pamela, D Joe PA Unavailable Unavailable Pamela, D Joe PA Unavailable Unavailable Pamela, D Joe PA Unavailable Unavailable Pamela, D Joe PA Unavailable Unavailable Pamela, D Joe PA Unavailable Unavailable Pamela, D Joe PA Unavailable Unavailable Pamela, D Joe PA Unavailable Unavailable Pamela, D Joe PA Unavailable Unavailable Pamela, D Joe PA Unavailable Unavailable Pamela, D Joe PA Unavailable Unavailable Pamela, D Joe PA Unavailable Unavailable Pamela, D Joe PA Unavailable Unavailable Pamela, D Joe PA Unavailable Unavailable Pamela, D Joe PA Unavailable Unavailable Pamela, D Joe PA Unavailable Unavailable Pamela, D Joe PA Unavailable Unavailable Pamela, D Joe PA Unavailable Unavailable Pamela, D Joe PA Unavailable Unavailable Pamela, D Joe PA Unavailable Unavailable Pamela, D Joe PA Unavailable Unavailable Pamela, D Joe PA Unavailable Unavailable Pamela, D Joe PA Unavailable Unavailable Pamela, D Joe PA Unavailable Unavailable Pamela, D Joe PA Unavailable Unavailable Pamela, D Joe PA Unavailable Unavailable Pamela, D Joe PA Unavailable Unavailable Pamela, D Joe PA Unavailable Unavailable Pamela, D Joe PA Unavailable Unavailable Pamela, D Joe PA Unavailable Unavailable Pamela, D Joe PA Unavailable Unavailable Pamela, D Joe PA Unavailable Unavailable Pamela, D Joe PA Unavailable Unavailable Pamela, D Joe PA Unavailable Unavailable Pamela, D Joe PA Unavailable Unavailable Pamela, D Joe PA Unavailable Unavailable Pamela, D Joe PA Unavailable Unavailable Pamela, D Joe PA Unavailable Unavailable Pamela, D Joe PA Unavailable Unavailable Pamela, D Joe PA Unavailable Unavailable Pamela, D Joe PA Unavailable Unavailable Pamela, D Joe PA Unavailable Unavailable Pamela, D Joe PA Unavailable Unavailable Pamela, D Joe PA Unavailable Unavailable Pamela, D Joe PA Unavailable Unavailable Pamela, D Joe PA Unavailable Unavailable Pamela, D Joe PA Unavailable Unavailable Pamela, D Joe PA Unavailable Unavailable Pamela, D Joe PA Unavailable Unavailable Pamela, D Joe PA Unavailable Unavailable Pamela, D Joe PA Unavailable Unavailable Pamela, D Joe PA Unavailable Unavailable Pamela, D Joe PA Unavailable Unavailable Pamela, D Joe PA Unavailable Unavailable Pamela, D Joe PA Unavailable Unavailable Pamela, D Joe PA Unavailable Unavailable Pamela, D Joe PA Unavailable Unavailable Pamela, D Joe PA Unavailable Unavailable Pamela, D Joe PA Unavailable Unavailable Pamela, D Joe PA Unavailable Unavailable Pamela, D Joe PA Unavailable Unavailable Pamela, D Joe PA Unavailable Unavailable Pamela, D Joe PA Unavailable Unavailable Pamela, D Joe PA Unavailable Unavailable Pamela, D Joe PA Unavailable Unavailable Pamela, D Joe PA Unavailable Unavailable Pamela, D Joe PA Unavailable Unavailable Pamela, D Joe PA Unavailable Unavailable Pamela, D Joe PA Unavailable Unavailable Pamela, D Joe PA Unavailable Unavailable Pamela, D Joe PA Unavailable Unavailable Pamela, D Joe PA Unavailable Unavailable Pamela, D Joe PA Unavailable Unavailable Pamela, D Joe PA Unavailable Unavailable Pamela, D Joe PA Unavailable Unavailable Pamela, D Joe PA Unavailable Unavailable Pamela, D Joe PA Unavailable Unavailable Pamela, D Joe PA Unavailable Unavailable Pamela, D Joe PA Unavailable Unavailable Pamela, D Joe PA Unavailable Unavailable Pamela, D Joe PA Unavailable Unavailable Pamela, D Joe PA Unavailable Unavailable Pamela, D Joe PA Unavailable Unavailable Pamela, D Joe PA Unavailable Unavailable Pamela, D Joe PA Unavailable Unavailable Pamela, D Joe PA Unavailable Unavailable Pamela, D Joe PA Unavailable Unavailable Pamela, D Joe PA Unavailable Unavailable Pamela, D Joe PA Unavailable Unavailable Pamela, D Joe PA Unavailable Unavailable Pamela, D Joe PA Unavailable Unavailable Pamela, D Joe PA Unavailable Unavailable Pamela, D Joe PA Unavailable Unavailable Pamela, D Joe PA Unavailable Unavailable Pamela, D Joe PA Unavailable Unavailable Pamela, D Joe PA Unavailable Unavailable Pamela, D Joe PA Unavailable Unavailable Pamela, D Joe PA Unavailable Unavailable Pamela, D Joe PA Unavailable Unavailable Pamela, D Joe PA Unavailable Unavailable Pamela, D Joe PA Unavailable Unavailable Pamela, D Joe PA Unavailable Unavailable Pamela, D Joe PA Unavailable Unavailable Pamela, D Joe PA Unavailable Unavailable Pamela, D Joe PA Unavailable Unavailable Pamela, D Joe PA Unavailable Unavailable Pamela, D Joe PA Unavailable Unavailable Pamela, D Joe PA Unavailable Unavailable Pamela, D Joe PA Unavailable Unavailable Pamlea, D Joe PA Unavailable Unavailable Pamela, D Joe PA Unavailable Unavailable Pamela, D Joe PA Unavailable Unavailable Pamela, D Joe PA Unavailable Unavailable Mervat Clarke MD Unavailable Unavailable Mervat Clarke MD Unavailable Unavailable Mervat Clarke MD Unavailable Unavailable Mervat Clarke MD Unavailable Unavailable Mervat Clarke MD Unavailable Unavailable Mervat Clarke MD Unavailable Unavailable Mervat Clarke MD Unavailable Unavailable Mervat Clarke MD Unavailable Unavailable Mervat Clarke MD Unavailable Unavailable Mervat Clarke MD Unavailable Unavailable Mervat Clarke MD Unavailable Unavailable Mervat Clarke MD Unavailable Unavailable Mervat Clarke MD Unavailable Unavailable Mervat Clarke MD Unavailable Unavailable Mervat Clarke MD Unavailable Unavailable Mervat Clarke MD Unavailable Unavailable Mervat Clarke MD Unavailable Unavailable Mervat Clarke MD Unavailable Unavailable Mervat Clarke MD Unavailable Unavailable Mervat Clarke MD Unavailable Unavailable Mervat Clarke MD Unavailable Unavailable Mervat Clarke MD Unavailable Unavailable Mervat Clarke MD Unavailable Unavailable Mervat Clarke MD Unavailable Unavailable Mervat Clarke MD Unavailable Unavailable Mervat Clarke MD Unavailable Unavailable Mervat Clarke MD Unavailable Unavailable Vince, F Doni MD Unavailable Unavailable Vince, F Doni MD Unavailable Unavailable Vince, F Doni MD Unavailable Unavailable Vince, F Doni MD Unavailable Unavailable Vince, F Odni MD Unavailable Unavailable Vince, F Doni MD Unavailable Unavailable Vince, F Doni MD Unavailable Unavailable Vince, F Doni MD Unavailable Unavailable Vince, F Doni MD Unavailable Unavailable Vince, F Doni MD Unavailable Unavailable Vince, F Doni MD Unavailable Unavailable Vince, F Doni MD Unavailable Unavailable Vince, F Doni MD Unavailable Unavailable Vince, F Doni MD Unavailable Unavailable Vince, F Doni MD Unavailable Unavailable Vince, F Doni MD Unavailable Unavailable Vince, F Doni MD Unavailable Unavailable Re-disclosure Warning The records that you are about to access may contain information from federally-assisted alcohol or drug abuse programs. If such information is present, then the following federally mandated warning applies: This information has been disclosed to you from records protected by federal confidentiality rules (42 CFR part 2). The federal rules prohibit you from making any further disclosure of this information unless further disclosure is expressly permitted by the written consent of the person to whom it pertains or as otherwise permitted by 42 CFR part 2. A general authorization for the release of medical or other information is NOT sufficient for this purpose. The Federal rules restrict any use of the information to criminally investigate or prosecute any alcohol or drug abuse patient.The records that you are about to access may contain highly sensitive health information, the redisclosure of which is protected by Article 27-F of the [facility] Public Health law. If you continue you may have access to information: Regarding HIV / AIDS; Provided by facilities licensed or operated by the [facility] Office of Mental Health; or Provided by the [facility] Office for People With Developmental Disabilities. If such information is present, then the following [facility] mandated warning applies: This information has been disclosed to you from confidential records which are protected by state law. State law prohibits you from making any further disclosure of this information without the specific written consent of the person to whom it pertains, or as otherwise permitted by law. Any unauthorized further disclosure in violation of state law may result in a fine or fpc sentence or both. A general authorization for the release of medical or other information is NOT sufficient authorization for further disc losure. Allergies and Adverse Reactions Type Description Substance Reaction Status Data Source(s ) No Known Drug Allergies No Known Drug Allergies [facility] Family History Family Member Name Family Member Gender Family Member Status Date o f Status Description Data Source(s) Unknown Male Problem [facility] ([facility]) Encounters Encounter Providers Location Date Indications Data Source(s ) Outpatient Attender: Joe LOMAS [facility] 05/2021 02:15:00 PM EST [facility] ([facility] Outpatient Attender: MARK GALAN MDConsultant: Joe LOMAS 07/13/2020 02:13:00 PM EST - 07/13/2020 03:13:00 PM [facility] Outpatient Attender: Joe LOMAS [facility] 11/2020 12:30:00 PM EST [facility] ([facility] Unknown [address] [facility] [id number] 07/04/2020 12:00:00 AM EST eCW1 ([facility]) Unknown [address] [facility] [id number] 06/24/2020 12:00:00 AM EST [facility]CW1 [facility] Outpatient [address] [facility] [id number] 06/17/2020 12:00:00 AM EST eCW1 ([facility]) Outpatient Attender: Doni Clarke MDConsultant: Joe LOMAS 05/17/2020 08:45:00 AM EST - 05/17/2020 10:30:00 AM [facility] Patient discharged. Outpatient Attender: Doni Clarke MDConsultant: Joe LOMAS 05/13/2020 01:43:00 PM EST - 05/13/2020 02:43:00 PM [facility] Patient discharged. Outpatient Attender: Doni Clarke MDConsultant: Joe LOMAS 05/10/2020 02:20:57 PM EST - 05/11/2020 04:00:00 PM [facility] Patient discharged. Outpatient Attender: Doni Clarke MDConsultant: Joe LOMAS 05/05/2020 09:25:00 AM EDT - 05/05/2020 10:25:00 AM EDT [facility] Patient discharged. Outpatient Attender: Doni Clarke MDConsultant: Joe LOMAS 04/27/2020 02:16:00 PM EDT - 04/27/2020 02:16:00 PM EDT [facility] Outpatient Attender: Joe LOMAS [facility] 03/2020 03:00:00 PM EDT [facility] ([facility] Outpatient Attender: Joe LOMAS [facility] 08/2019 02:40:00 PM EDT [facility] ([facility] Outpatient Attender: Joe LOMAS [facility] 03:00:00 PM EDT [facility] ([facility] Outpatient Attender: Joe LOMAS [facility] 02:00:00 PM EST [facility] ([facility] Immunizations Vaccine Date Status Description Data Source(s) New in 2012. IIV4 04/15/2020 02:53:00 PM EDT completed [facility] ([facility] Medications Medication Brand Name Start Date Product Form Dose Route Admi nistrative Instructions Pharmacy Instructions Status Indications Reaction Description Data Source(s) Metformin hydrochloride 500 MG Oral Tablet METFORMIN HCL 07/15/2020 12:00:00 AM EST tablet 270 TAKE ONE TABLET BY MOUTH THR EE TIMES A DAY - TAKE WITH A MEAL TAKE ONE TABLET BY MOUTH THREE TIMES A DAY - TAKE WITH A MEAL SOLD: 07/16/2020 [facility] 17.5-3.13-1.6 gram 05/15/2020 12:00:00 AM EST recon soln 354 USE DIRECTED USE DIRECTED SOLD: 05/15/2020 [facility] Ondansetron 4 MG Oral Tablet [Zofran] Zofran 04/27/2020 12:00:00 AM EDT ORAL active [facility] ([facility]) Bisacodyl 5 MG Delayed Release Oral Tablet [Dulcolax] Dulcol ax 04/27/2020 12:00:00 AM EDT active M [facility]ENT ([facility]) POLYETHYLENE GLYCOL 3350 142 MG/ML Oral Solution [Miralax] M iralax 04/27/2020 12:00:00 AM EDT active M [facility]ENT ([facility]) Suprep Bowel Prep Kit Suprep Bowel Prep Kit 04/27/2020 12:00:00 AM EDT active [facility] ([facility]) 500 mg 03/28/2020 12:00:00 AM EDT tablet 4 TAKE 4 TABLETS BY MOUTH 1 HOUR PRIOR TO DENTAL APPT. TAKE 4 TABLETS BY MOUTH 1 HOUR PRIOR TO DENTAL APPT. S OLD: 03/31/2020 [facility] 500 mg 03/28/2020 12:00:00 AM EDT tablet 4 TAKE 4 TABLETS BY MOUTH 1 HOUR PRIOR TO DENTAL APPT. TAKE 4 TABLETS BY MOUTH 1 HOUR PRIOR TO DENTAL APPT. S OLD: 06/29/2020 [facility] 500 mg 03/07/2020 12:00:00 AM EDT tablet 4 TAKE FOUR TABLETS BY MOUTH 1 HOUR PRIOR TO DENTAL APPOINTMENT TAKE FOUR TABLETS BY MOUTH 1 HOUR PRIOR TO DENTAL APPOINTMENT SOLD: 03/08/2020 [facility] 500 mg 01/29/2020 12:00:00 AM EDT capsule 4 TAKE 4 CAPSULES BY MOUTH 1 HOUR PRIOR TO DENTAL APPOINTMENT TAKE 4 CAPSULES BY MOUTH 1 HOUR PRIOR TO DENTAL APPOINTMENT SOLD: 02/01/2020 [facility] 40-25 mg 01/08/2020 12:00:00 AM EDT tablet 90 TAKE ONE TABLET BY MOUTH EVERY DAY TAKE ONE TABLET BY MOUTH EVERY DAY SOLD: 01/12/2020 [facility] 33 gauge 01/08/2020 12:00:00 AM EDT misc 100 USE TO TEST BLOOD GLUCOSE ONCE DAILY USE TO TEST BLOOD GLUCOSE ONCE DAILY SOLD: 01/12/2020 [facility] BLOOD SUGAR DIAGNOSTIC 09/16/2019 12:00:00 AM EDT strip 100 TEST BLOOD SUGAR ONCE DAILY TEST BLOOD SUGAR ONCE DAILY SOLD: 03/08/2020 [facility] BLOOD SUGAR DIAGNOSTIC 09/16/2019 12:00:00 AM EDT strip 100 TEST BLOOD SUGAR ONCE DAILY TEST BLOOD SUGAR ONCE DAILY SOLD: 09/22/2019 [facility] BLOOD SUGAR DIAGNOSTIC 09/16/2019 12:00:00 AM EDT strip 100 TEST BLOOD SUGAR ONCE DAILY TEST BLOOD SUGAR ONCE DAILY SOLD: 12/06/2019 [facility] [employer]et[employer] Verio 09/15/2019 12:00:00 AM EDT act leopoldo [facility] ([facility] BLOOD SUGAR DIAGNOSTIC 06/05/2019 12:00:00 AM EST strip 100 USE TO TEST BLOOD GLUCOSE ONCE DAILY USE TO TEST BLOOD GLUCOSE ONCE DAILY SOLD: 06/07/2019 [facility] 500 mg 04/02/2019 12:00:00 AM EDT capsule 4 TAKE FOUR CAPSULES BY MOUTH 1 HOUR PRIOR TO DENTAL PROCEDURE TAKE FOUR CAPSULES BY MOUTH 1 HOUR PRIOR TO DENTAL PROCEDURE SOLD: 12/25/2019 [facility] Insurance Providers Payer name Policy type / Coverage type Policy ID Covered libertarian ID Covered libertarian's relationship to franklin Policy [place] Plan Information WELLCARE [id number] SP [id number] [place] [place] [id number] 18 [id number] WE[employer]ARE [id number] SP [id number] [facility] [id number] SP [id number] WELLCARE O [id number] S [id number] [facility] O [id number] S [id number] [facility] [id number] SP [id number] [place] [place] [id number] 18 [id number] [employer]-[facility] [id number] 18 [id number] Today's Option P UNAVAILABLE S JUAN PABLO VAILABLE [employer] Commercial [id number] Self [id number] [facility] Community [facility] Medigap Part B [id number] Self [id number] [employer] Commercial [id number] Self [id number] [employer] Commercial [id number] Self [id number] [facility] Community Plan Commercial [id number] Self [id number] [facility] AMERICHOICE XIX -HMO [id number] 18 [id number] [facility] COMMUNITY PLAN XIX -RECURRING [id number] 18 [id number] [facility] Community Plan Commercial [id number] Self [id number] [facility] [id number] SP [id number] [facility] [place] O [id number] 18 [id number] [facility] [id number] SP [id number] [facility] Commercial [id number] Self [id number] SELF PAY UNAVAILABLE SP UNAVAILA BLE Problems, Conditions, and Diagnoses Code Display Name Description Problem Type Effective Dates Data Source(s) 856068219 Screening for malignant neoplasm of colo n Screening for malignant neoplasm of colon Problem 04/27/2020 12:00:00 AM EDT [facility] ([facility]) [id number] Essential hypertension Essential hypertension Problem 04/25/2020 12:00:00 AM EDT [facility] ([facility]) I10 Essential (primary) hypertension Essential (primary) h ypertension Diagnosis 07/13/2020 02:13:00 PM [facility] N200 Calculus of kidney Calculus of kidney Diagnosis 02:13:00 PM [facility] [id number] Encounter for other preprocedural examin ation Encounter for other preprocedural examination Diagnosis 07/13/2020 02:13:00 PM [facility] R195 Other fecal abnormalities Other fecal abnormalities Di agnosis 05/17/2020 08:45:00 AM [facility] Z1211 Encounter for screening for malignant ne oplasm of colon Encounter for screening for malignant neoplasm of colon Diagnosis 05/17/2020 08:45:0 0 AM [facility] Z1159 Encounter for screening for other viral diseases Encounter for screening for other viral diseases Diagnosis 05/13/2020 01:43:00 PM [facility] K2970 Gastritis, unspecified, without bleeding Gastritis, unspecified, without bleeding Diagnosis 05/05/2020 09:25:00 AM EDT [facility] K219 Gastro-esophageal reflux disease without esophagitis Gastro-esophageal reflux disease without esophagitis Diagnosis 05/05/2020 09:25:00 AM ED T [facility] Results ID Date Data Source [id number] 07/16/2020 08:30:00 AM [facility] Name Value Range Interpretation Code Description Data Daly rce(s) Supporting Document(s) SARS coronavirus 2 RNA Not Detected [facility] This lab was ordered by [facility] and reported by [facility]. ID Date Data Source [id number] 07/14/2020 10:55:00 AM [facility] [address] [place] [address] PHONE: [phone] FAX: [phone] Name .................. : STEPHANIE Castillo Acct Number.................. : [id number] ROOM. ................. : Number ................... : [id number] Stay type ............. : O/P Discharge Date......... ... : 07/13/20 Admit Date ......... : 07/13/20 Admit Phys .................... : ANGELIA Toth Date of ....... : 1955 Family Phys ................... : [facility] Phone .................. : [phone] Age ................................ : 65 Film# .................. .:[id number] Sex ................................. : M Unsigned transcriptions are preliminary reports and do not represent a medical or legal document CHEST 2 VIEWS 22737 COMPLETE:07/13/20 16:12 RICK 1589 (REASON FOR CHEST: HTN CHEST X-RAY: 2-VIEWS INDICATION: Hypertension. FINDINGS: The lungs are well-expanded with mild chronic interstitial changes. No focal infiltrate. The cardiac silhouette is normal in size and contour. No acute osseous abnormality. IMPRESSION: No acute pulmonary process. Electronically Reviewed and Signed By Hero Rojas M.D. , 07/14/20 10:55, PAY Transcribe Initials: JOSE , Transcribe Date: 07/14/20 00:19, Dictation Date: Copy for: ANGELIA FLORES via fax Copy for: [address] [place] [address] REC Page 1 of 1 Name Value Range Interpretation Code Description Data Daly rce(s) Supporting Document(s) ID Date Data Source [id number] 07/13/2020 09:24:00 PM EST [facility] [address] [facility] [place] [address] RESPIRATORY CARE REPORT ==== ---------NAME------- NUMBER SEX AGE ADMIT DISC. XRAY# F/C TYPEKAMIDE DONI S [id number] M 65 07/13/20 07/13/20 [id number] O/P DATE OF : 1955 M/R# [id number] #: [id number] LOCATION: EKG [id number] COMPLETE:07/13/20 14:52 ED [id number] PHYSICIAN: ANGELIA Toth Name Value Range Interpretation Code Description Data Daly rce(s) Supporting Document(s) ID Date Data Source [id number] 07/13/2020 02:18:00 PM EST [facility] ([facility] Name Value Range Interpretation Code Description Data Daly rce(s) Supporting Document(s) Protime 13.2 s 11.0-15.5 [facility] Is patient fasting? N Inr 0.95 0.93-1.23 [facility] ([facility] Is patient fasting? N PTT 26.5 s 24.8-36.7 [facility] ([facility] Is patient fasting? N ID Date Data Source [id number] 07/13/2020 02:18:00 PM EST [facility] ([facility] Name Value Range Interpretation Code Description Data Daly rce(s) Supporting Document(s) CBC No Diff Laboratory test result M [facility] ([facility] Is patient fasting? N WBC 4.6 10^3/uL 4.2-11.0 [facility] Is patient fasting? N Hematocrit 49.4 % 41.0-51.0 [facility] ([facility] Is patient fasting? N Hemoglobin 16.9 g/dL 14.0-16.0 Above high normal [facility] ([facility] Is patient fasting? N RBC 5.26 10^6/uL 4.50-6.30 [facility] ([facility] Is patient fasting? N MCH 32.1 pg 27.0-34.0 [facility] Is patient fasting? N MCHC 34.2 g/dL 31.0-36.0 [facility] Is patient fasting? N MCV 93.9 fL 80.0-94.0 [facility] Is patient fasting? N RDW 13.2 % 11.5-14.8 [facility] Is patient fasting? N MPV 11.3 fL 7.4-10.4 Above high normal [facility] ([facility] Is patient fasting? N Platelets 106 10^3/uL 150-450 Below low normal [facility] ([facility] Is patient fasting? N ID Date Data Source [id number] 07/13/2020 02:18:00 PM EST MEDENT ([facility] Name Value Range Interpretation Code Description Data Daly rce(s) Supporting Document(s) Basic Metabolic Pane Laboratory test result MEDENT ([facility] Is patient fasting? N Sodium 138 meq/L 134-153 MEDENT ([facility] Is patient fasting? N Chloride 98 meq/L 98-107 MEDENT ([facility] Is patient fasting? N Potassium 3.9 meq/L 3.6-5.0 [facility] ([facility] Is patient fasting? N Glucose 265 mg/dL 65-110 Above high normal MEDENT ([facility] Is patient fasting? N BUN 20 mg/dL 7-21 MED[facility] ([facility] Is patient fasting? N Co2 26 meq/L 22-30 [facility] ([facility] Is patient fasting? N BUN/Creat 22 8-27 MED[facility] ([facility] Is patient fasting? N Creatinine 0.9 mg/dL 0.7-1.5 MED[facility] ([facility] Is patient fasting? N Age 65 yrs MEDENT ([facility] Is patient fasting? N Calcium 9.2 mg/dL 8.4-10.2 MED[facility] ([facility] Is patient fasting? N Anion Gap 14.0 mmol/L 8.0-16.0 MED[facility] ([facility] Is patient fasting? N Non-Aa GFR Laboratory test result ME DENT ([facility] Is patient fasting? N Afr Amer GFR Laboratory test result MEDENT ([facility] Is patient fasting? N ID Date Data Source [id number] 07/14/2020 08:15:00 AM EST [facility] Name Value Range Interpretation Code Description Data Daly rce(s) Supporting Document(s) Prothrombin time (PT) 13.2 SECONDS 11.0 - 15.5 [facility] INR in Platelet poor plasma by Coagulation assay 0.95 0.93 - 1. 23 [facility] aPTT in Blood by Coagulation assay 26.5 SECONDS 24.8 - 36.7 [facility] \\BLDo\\INR INTERPRETATION\\BLDx\\ Therapeutic range for Coumadin and related oral anticoagulants. - International Normalized Ratio (INR): 2.0 - 3.0 for Venous Thrombosis, Pulmonary Embolus, Tissue heart valves, Acute CA Atrial Fibrillation, Valvular heart disease and recurrent Systemic Embolism. - International Normalized Ratio (INR): 2.5 - 3.5 for Mechanical Prosthetic valve. ID Date Data Source [id number] 07/14/2020 07:54:00 AM EST [facility] Name Value Range Interpretation Code Description Data Daly rce(s) Supporting Document(s) CBC NO DIFF [facility] ital COMPLETE BLOOD COUNT Leukocytes [#/volume] in Blood by Automated count 4.6 10^3/uL 4.2 - 1 1.0 [facility] Erythrocytes [#/volume] in Blood by Automated count 5.26 10^6/uL 4. 50 - 6.30 [facility] Hemoglobin [Mass/volume] in Blood 16.9 g/dL 14.0 - 16.0 H [facility] Hematocrit [Volume Fraction] of Blood by Automated count 49.4 % 4 1.0 - 51.0 [facility] Erythrocyte mean corpuscular volume [Entitic volume] by Auto mated count 93.9 fL 80.0 - 94.0 [facility] Erythrocyte mean corpuscular hemoglobin [Entitic mass] by Automated count 32.1 pg 27.0 - 34.0 [facility] Erythrocyte mean corpuscular hemoglobin concentration [Mass/volume] by Automated count 34.2 g/dL 31.0 - 36.0 [facility] Erythrocyte distribution width [Ratio] by Automated count 13.2 % 11.5 - 14.8 [facility] Platelets [#/volume] in Blood by Automated count 106 10^3/uL 150 - 45 0 L [facility] Platelet mean volume [Entitic volume] in Blood by Automated count 11.3 fL 7.4 - 10.4 H [facility] ID Date Data Source [id number] 07/13/2020 07:29:00 PM EST [facility] Name Value Range Interpretation Code Description Data Daly rce(s) Supporting Document(s) BASIC METABOLIC PANEL [facility] BASIC METABOLIC PANEL Sodium [Moles/volume] in Serum or Plasma 138 mEq/L 134 - 153 [facility] Potassium [Moles/volume] in Serum or Plasma 3.9 mEq/L 3.6 - 5.0 [facility] Chloride [Moles/volume] in Serum or Plasma 98 mEq/L 98 - 107 [facility] Carbon dioxide, total [Moles/volume] in Serum or Plasma 26 MEQ/L 22 - 30 [facility] Glucose [Mass/volume] in Serum or Plasma 265 MG/DL 65 - 110 H [facility] BUN 20 MG/DL 7 - 21 [facility] Creatinine [Mass/volume] in Serum or Plasma 0.9 MG/DL 0.7 - 1.5 [facility] BUN/CREAT 22 8 - 27 [facility] al Calcium [Mass/volume] in Serum or Plasma 9.2 MG/DL 8.4 - 10.2 [facility] Anion gap 3 in Serum or Plasma 14.0 mmol/L 8.0 - 16.0 [facility] AGE 65 yrs [facility] al AFR AMER GFR >60 mL/min [facility] Ho spital NON-AA GFR >60 mL/min [facility] ital Male GFR Inter prentation 20-49 yrs >60 mL/min Normal 50-59 yrs >56 mL/min Normal 60-69 yrs >49 mL/min Normal 70-79yrs >42 mL/min Normal 80 and above >35 mL/min Normal Female GFR Interpretation 20-39 yrs >60 mL/min Normal 40-49 yrs >58 mL/min Normal 50-59 yrs >51 mL/min Normal 60-69 yrs >45 mL/min Normal 70-79 yrs >39 mL/min Normal 80 and above >32 mL/min Normal ID Date Data Source [id number] 07/11/2020 08:58:00 AM EST MEDENT ([facility] Name Value Range Interpretation Code Description Data Daly rce(s) Supporting Document(s) Hemoglobin A1c/Hemoglobin.total in Blood 7.3 % 4.40-6.10 Above high normal [facility] ([facility] ID Date Data Source [id number] 05/17/2020 10:43:00 [place] [address] OPERATIVE SUMMARYNAME: STEPHANIE Castillo DATE OF : 3ATTENDING PHYS: Doni Clarke MD DATE: 05/17/20 MR#: [id number] PROCEDURE: 05/17/2020PRE- OPERATIVE DIAGNOSIS: Colonoscopy for occult blood in stool.POST-OPERATIVE DIAGNOSIS: Colonoscopy for occult blood in stool.ANESTHESIA: IV sedation.ANESTHESIOLOGIST: Jason Viramontes CRNA.ATTENDING SURGEON: Dr. Doni Clarke.FINDINGS: 1. Normal colonoscopy to the cecum. 2. Normal prostate.PROCEDURE PERFORMED: Colonoscopy.DETAILS OF PROCEDURE:Patient was brought to the operating room, placed in the left lateral decubitus position, and givenIV sedation. Flexible colonoscope was inserted in the patient's rectum, and negotiated through therectum, sigmoid, left colon, transverse colon, and right colon. The cecum was clearly identified.During the passage of the colonoscope, the mucosa examined appeared normal. There were nomasses, polyps, ulcerations, or inflammatory areas evident. Bowel prep was noted to be excellent.After the cecum was examined, the scope was slowly and carefully withdrawn with a full re-inspection performed, confirming the above findings. A digital rectal exam was performed, whichrevealed normal prostate.ESTIMATED BLOOD LOSS: None.IV FLUIDS: Crystalloid.DRAINS: None.COMPLICATIONS: None.DISPOSITION:Patient tolerated procedure well, and was sent to the recovery room in good condition. [address] [place] [address] OPERATIVE SUMMARYNAME: STEPHANIE Castillo DATE OF : 1955TTENDING PHYS: Doni Clarke MD DATE: 05/17/20 MR#: [id number]:Repeat colonoscopy in ten years given absence of additional risk factors.DD: Doni Clarke MD 05/17/20 09:39DT: PERI 05/17/20 10:35DS: Doni Clarke MD 05/18/20 11:01 2 Name Value Range Interpretation Code Description Data [facility] rce(s) Supporting Document(s) ID Date Data Source [id number] 05/13/2020 11:00:00 AM EST MED[facility] ([facility] Name Value Range Interpretation Code Description Data [facility](s) Supporting Document(s) Coronavirus Covid-19 Laboratory test result MEDENT ([facility] This nucleic acid amplification test was developed and its performance characteristics determined by [email or web address]. Nucleic acid amplification tests include PCR and [...] negative (not detected) result in this assay. ID Date Data Source [id number] 05/13/2020 11:00:00 AM EST [facility] Name Value Range Interpretation Code Description Data Daly e(s) Supporting Document(s) SARS coronavirus 2 RNA [facility] This lab was ordered by [facility] and reported by [facility]. ID Date Data Source [id number] 05/14/2020 03:15:00 PM EST [facility] Name Value Range Interpretation Code Description Data Daly rce(s) Supporting Document(s) SARS-CoV-2, MYRA Not Detected Not Detected [facility] This nucleic acid amplification test was developed and its performancecharacteristics determined by [facility]. Nucleic acidamplification tests include PCR and TMA. This test has not been FDAcleared or approved. This test has been authorized by FDA under anEmergency Use Authorization (EUA). This test is only authorized forthe duration of time the declaration that circumstances existjustifying the authorization of the emergency use of in vitrodiagnostic tests for detection of SARS-CoV-2 virus and/or diagnosisof COVID-19 infection under section 564(b)(1) of the Act, 21 U.S.C.360bbb-3(b) (1), unless the authorization is terminated or revokedsooner.When diagnostic testing is negative, the possibility of a falsenegative result should be considered in the context of a patient'srecent exposures and the presence of clinical signs and symptomsconsistent with COVID- 19. An individual without symptoms of COVID-19and who is not shedding SARS-CoV-2 virus would expect to have anegative (not detected) result in this assay. ID Date Data Source [id number] 05/06/2020 01:57:00 PM EDT [facility] [address] [place] [address] PHONE: [phone] FAX: [phone] Name .................. : STEPHANIE Castillo Acct Number.................. : [id number] ROOM. ................. : Number ................... : [id number] Stay type ............. : O/P Discharge Date......... ... : 05/05/20 Admit Date ......... : 05/05/20 Admit Phys .................... : VINCE MALDONADO Date of ....... : 1955 Family Phys ................... : [facility] Phone .................. : [phone] Age ................................ : 65 Film# .................. .:[id number] Sex ................................. : M Unsigned transcriptions are preliminary reports and do not represent a medical or legal document UPPER GI SINGLE CONTRAST [id number] COMPLETE:05/05/20 11:33 RICK [id number] (REASON FOR EXAM: FECAL ABNORMALITIES,OCCULT BLOOD IN STOOL GI SERIES, 05/05/20: INDICATION: Fecal abnormalities, occult blood in stool. FINDINGS: There is bilateral renal calculi. The largest is at the right kidney measuring 6 mm. KUB cellophane wrapping examiner demonstrates a nonspecific bowel gas pattern and unremarkable osseous structures. Following administration of gas crystals and barium, the esophageal mucosa shows mild tertiary contractions and gastroes ophageal reflux. Diffuse fold thickening is identified in the body of the stomach, suggesting underlying gastritis. No distinct ulceration is identified. Duodenum appears unremarkable. IMPRESSION: Bilateral renal calculi. GERD. Gastritis. Examination dictated by ABEBE Liriano. Examination was reviewed with Asia Hensley MD, radiologist at the time of this dictation. Electronically Reviewed and Signed By Asia Hensley MD , 05/06/20 13:57, KGG Transcribe Initials: [facility], Transcribe Date: 05/05/20 11:41, Dictation Date: Copy for: VINCE DONI Croewll via fax Page [address] [place] [address] PHONE: [phone] FAX: [phone] Name .................. : STEPHANIE Castillo Acct Number.................. : [id number] ROOM. ................. : Number ................... : [id number] Stay type ............. : O/P Discharge Date......... ... : 05/05/20 Admit Date ......... : 05/05/20 Admit Phys .................... : VINCE MALDONADO Date of ....... : 1955 Family Phys ................... : PAMELA REECE Phone .................. : [phone] Age ................................ : 65 Film# .................. .:[id number] Sex ................................. : M Unsigned transcriptions are preliminary reports and do not represent a medical or legal document UPPER GI SINGLE CONTRAST [id number] COMPLETE:05/05/20 11:33 RICK [id number] (REASON FOR EXAM: FECAL ABNORMALITIES,OCCULT BLOOD IN STOOL Copy for: 710 MED REC Page 2 of 2 Name Value Range Interpretation Code Description Data Daly rce(s) Supporting Document(s) ID Date Data Source [id number] 05/03/2020 09:21:00 AM EDT MEDENT ([facility]) Name Value Range Interpretation Code Description Data Daly rce(s) Supporting Document(s) Laboratory test finding (navigational concept) Laboratory test result MEDENT ([facility]) ID Date Data Source [id number] 04/08/2020 09:01:00 AM EDT [facility] ([facility] Name Value Range Interpretation Code Description Data Daly rce(s) Supporting Document(s) Prostate specific Ag [Mass/volume] in Serum or Plasma 2.44 ng/mL 0.0- 4.0 [facility] ([facility] ID Date Data Source [id number] 04/08/2020 09:01:00 AM EDT [facility] ([facility] Name Value Range Interpretation Code Description Data Daly rce(s) Supporting Document(s) Thyrotropin [Units/volume] in Serum or Plasma 1.998 ulU/mL 0.60-4.8 [facility] ([facility] ID Date Data Source [id number] 04/08/2020 09:00:00 AM EDT [facility] ([facility] Name Value Range Interpretation Code Description Data Daly rce(s) Supporting Document(s) Hemoglobin A1c/Hemoglobin.total in Blood 7.0 % 4.40-6.10 Above high normal RENATA ([facility] CHRONIC KIDNEY DISEASE STAGING PER NKF: MALE [...] DESIRABLE: <130 MG/DL <110 MG/DL BORDERLINE-HIGH RISK: 130- 159 MG/DL 110-129 MG/DL HIGH RISK: >160 MG/DL >130 MG/DL *CHILDREN AND ADOLESCENTS REPRESENTS INDIVIDUALA AGED 2-19 YEARS EXCLUSIVE. ID Date Data Source [id number] 04/08/2020 09:00:00 AM EDT RENATA ([facility] Name Value Range Interpretation Code Description Data Daly rce(s) Supporting Document(s) Color Laboratory test result RENATA ([facility] CHRONIC KIDNEY DISEASE STAGING PER NKF: MALE [...] DESIRABLE: <130 MG/DL <110 MG/DL BORDERLINE-HIGH RISK: 130- 159 MG/DL 110-129 MG/DL HIGH RISK: >160 MG/DL >130 MG/DL *CHILDREN AND ADOLESCENTS REPRESENTS INDIVIDUALA AGED 2-19 YEARS EXCLUSIVE. Glucose-Ua Laboratory test result Abnormal (applies to non -numeric results) [facility] ([facility] CHRONIC KIDNEY DISEASE STAGING PER NKF: MALE [...] DESIRABLE: <130 MG/DL <110 MG/DL BORDERLINE-HIGH RISK: 130- 159 MG/DL 110-129 MG/DL HIGH RISK: >160 MG/DL >130 MG/DL *CHILDREN AND ADOLESCENTS REPRESENTS INDIVIDUALA AGED 2-19 YEARS EXCLUSIVE. Bilirubin,Urine Laboratory test result [facility] ([facility] CHRONIC KIDNEY DISEASE STAGING PER NKF: MALE [...] DESIRABLE: <130 MG/DL <110 MG/DL BORDERLINE-HIGH RISK: 130- 159 MG/DL 110-129 MG/DL HIGH RISK: >160 MG/DL >130 MG/DL *CHILDREN AND ADOLESCENTS REPRESENTS INDIVIDUALA AGED 2-19 YEARS EXCLUSIVE. Clarity Laboratory test result [facility]ENATA ([facility] CHRONIC KIDNEY DISEASE STAGING PER NKF: MALE [...] DESIRABLE: <130 MG/DL <110 MG/DL BORDERLINE-HIGH RISK: 130- 159 MG/DL 110-129 MG/DL HIGH RISK: >160 MG/DL >130 MG/DL *CHILDREN AND ADOLESCENTS REPRESENTS INDIVIDUALA AGED 2-19 YEARS EXCLUSIVE. Creatine kinase [Enzymatic activity/volume] in Serum or Plas ma 1.015 # 1.000-1.030 [facility] CHRONIC KIDNEY DISEASE STAGING PER NKF: MALE [...] ADOLESCENTS REPRESENTS INDIVIDUALA AGED 2-19 YEARS EXCLUSIVE. Ketone Laboratory test result Abnormal (applies to non -numeric results) MEDILENE ([facility] CHRONIC KIDNEY DISEASE STAGING PER NKF: MALE [...] ADOLESCENTS REPRESENTS INDIVIDUALA AGED 2-19 YEARS EXCLUSIVE. Protein Laboratory test result RENATA ([facility] CHRONIC KIDNEY DISEASE STAGING PER NKF: MALE [...] ADOLESCENTS REPRESENTS INDIVIDUALA AGED 2-19 YEARS EXCLUSIVE. Blood - Ua Laboratory test result ME FRY ([facility] CHRONIC KIDNEY DISEASE STAGING PER NKF: MALE [...] ADOLESCENTS REPRESENTS INDIVIDUALA AGED 2-19 YEARS EXCLUSIVE. pH 5.5 # 5.0-8.0 [facility] CHRONIC KIDNEY DISEASE STAGING PER NKF: MALE [...] ADOLESCENTS REPRESENTS INDIVIDUALA AGED 2-19 YEARS EXCLUSIVE. Nitrite Laboratory test result MED[facility] ([facility] CHRONIC KIDNEY DISEASE STAGING PER NKF: MALE [...] ADOLESCENTS REPRESENTS INDIVIDUALA AGED 2-19 YEARS EXCLUSIVE. Leukocyte Laboratory test result CA LISANRDA ([facility] CHRONIC KIDNEY DISEASE STAGING PER NKF: MALE [...] ADOLESCENTS REPRESENTS INDIVIDUALA AGED 2-19 YEARS EXCLUSIVE. Urobilinogen 0.2 NA 0.2-1.0 [facility] ([facility] CHRONIC KIDNEY DISEASE STAGING PER NKF: MALE [...] ADOLESCENTS REPRESENTS INDIVIDUALA AGED 2-19 YEARS EXCLUSIVE. ID Date Data Source [id number] 04/08/2020 09:00:00 AM EDT [facility] ([facility] Name Value Range Interpretation Code Description Data Daly rce(s) Supporting Document(s) Chol 146 mg/dL 0-200 [facility] CHRONIC KIDNEY DISEASE STAGING PER NKF: MALE [...] ADOLESCENTS REPRESENTS INDIVIDUALA AGED 2-19 YEARS EXCLUSIVE. Cholesterol in HDL [Mass/volume] in Serum or Plasma 42 mg/dL 35-55 [facility] ([facility] CHRONIC KIDNEY DISEASE STAGING PER NKF: MALE [...] DESIRABLE: <130 MG/DL <110 MG/DL BORDERLINE-HIGH RISK: 130- 159 MG/DL 110-129 MG/DL HIGH RISK: >160 MG/DL >130 MG/DL *CHILDREN AND ADOLESCENTS REPRESENTS INDIVIDUALA AGED 2-19 YEARS EXCLUSIVE. Trig 175 mg/dL 35-200 [facility] ([facility] CHRONIC KIDNEY DISEASE STAGING PER NKF: MALE [...] DESIRABLE: <130 MG/DL <110 MG/DL BORDERLINE-HIGH RISK: 130- 159 MG/DL 110-129 MG/DL HIGH RISK: >160 MG/DL >130 MG/DL *CHILDREN AND ADOLESCENTS REPRESENTS INDIVIDUALA AGED 2-19 YEARS EXCLUSIVE. LDL_C 69 Calc 75-129 Below low normal MEDENT ( [facility] CHRONIC KIDNEY DISEASE STAGING PER NKF: MALE [...] DESIRABLE: <130 MG/DL <110 MG/DL BORDERLINE-HIGH RISK: 130- 159 MG/DL 110-129 MG/DL HIGH RISK: >160 MG/DL >130 MG/DL *CHILDREN AND ADOLESCENTS REPRESENTS INDIVIDUALA AGED 2-19 YEARS EXCLUSIVE. Cho/HDL Ratio 3.5 Calc MEDENT ([facility] CHRONIC KIDNEY DISEASE STAGING PER NKF: MALE [...] DESIRABLE: <130 MG/DL <110 MG/DL BORDERLINE-HIGH RISK: 130- 159 MG/DL 110-129 MG/DL HIGH RISK: >160 MG/DL >130 MG/DL *CHILDREN AND ADOLESCENTS REPRESENTS INDIVIDUALA AGED 2-19 YEARS EXCLUSIVE. ID Date Data Source [id number] 04/08/2020 09:00:00 AM EDT MED[facility] ([facility] Name Value Range Interpretation Code Description Data Daly rce(s) Supporting Document(s) Glu 170 mg/dL 70-110 Above high normal [facility] ([facility] CHRONIC KIDNEY DISEASE STAGING PER NKF: MALE [...] DESIRABLE: <130 MG/DL <110 MG/DL BORDERLINE-HIGH RISK: 130- 159 MG/DL 110-129 MG/DL HIGH RISK: >160 MG/DL >130 MG/DL *CHILDREN AND ADOLESCENTS REPRESENTS INDIVIDUALA AGED 2-19 YEARS EXCLUSIVE. BUN 19 mg/dL 8-23 [facility] ([facility] CHRONIC KIDNEY DISEASE STAGING PER NKF: MALE [...] DESIRABLE: <130 MG/DL <110 MG/DL BORDERLINE-HIGH RISK: 130- 159 MG/DL 110-129 MG/DL HIGH RISK: >160 MG/DL >130 MG/DL *CHILDREN AND ADOLESCENTS REPRESENTS INDIVIDUALA AGED 2-19 YEARS EXCLUSIVE. Creat 1.1 mg/dL 0.7-1.2 [facility] ([facility] CHRONIC KIDNEY DISEASE STAGING PER NKF: MALE [...] DESIRABLE: <130 MG/DL <110 MG/DL BORDERLINE-HIGH RISK: 130- 159 MG/DL 110-129 MG/DL HIGH RISK: >160 MG/DL >130 MG/DL *CHILDREN AND ADOLESCENTS REPRESENTS INDIVIDUALA AGED 2-19 YEARS EXCLUSIVE. BUN/Creatinine Ratio 17.7 CALC MEDENT ([facility] CHRONIC KIDNEY DISEASE STAGING PER NKF: MALE [...] DESIRABLE: <130 MG/DL <110 MG/DL BORDERLINE-HIGH RISK: 130- 159 MG/DL 110-129 MG/DL HIGH RISK: >160 MG/DL >130 MG/DL *CHILDREN AND ADOLESCENTS REPRESENTS INDIVIDUALA AGED 2-19 YEARS EXCLUSIVE. Na 140 mmol/L 136-145 [facility] CHRONIC KIDNEY DISEASE STAGING PER NKF: MALE [...] DESIRABLE: <130 MG/DL <110 MG/DL BORDERLINE-HIGH RISK: 130- 159 MG/DL 110-129 MG/DL HIGH RISK: >160 MG/DL >130 MG/DL *CHILDREN AND ADOLESCENTS REPRESENTS INDIVIDUALA AGED 2-19 YEARS EXCLUSIVE. CL 98.6 mmol/L 98.0-107.0 [facility] ([facility] CHRONIC KIDNEY DISEASE STAGING PER NKF: MALE [...] DESIRABLE: <130 MG/DL <110 MG/DL BORDERLINE-HIGH RISK: 130- 159 MG/DL 110-129 MG/DL HIGH RISK: >160 MG/DL >130 MG/DL *CHILDREN AND ADOLESCENTS REPRESENTS INDIVIDUALA AGED 2-19 YEARS EXCLUSIVE. Co2 29.8 mmol/L 22.0-29.0 Above high normal [facility] ([facility] CHRONIC KIDNEY DISEASE STAGING PER NKF: MALE [...] DESIRABLE: <130 MG/DL <110 MG/DL BORDERLINE-HIGH RISK: 130- 159 MG/DL 110-129 MG/DL HIGH RISK: >160 MG/DL >130 MG/DL *CHILDREN AND ADOLESCENTS REPRESENTS INDIVIDUALA AGED 2-19 YEARS EXCLUSIVE. K 3.8 mmol/L 3.5-5.1 [facility] ([facility] CHRONIC KIDNEY DISEASE STAGING PER NKF: MALE [...] DESIRABLE: <130 MG/DL <110 MG/DL BORDERLINE-HIGH RISK: 130- 159 MG/DL 110-129 MG/DL HIGH RISK: >160 MG/DL >130 MG/DL *CHILDREN AND ADOLESCENTS REPRESENTS INDIVIDUALA AGED 2-19 YEARS EXCLUSIVE. CA 10.2 mg/dL 8.6-10.2 [facility] ([facility] CHRONIC KIDNEY DISEASE STAGING PER NKF: MALE [...] DESIRABLE: <130 MG/DL <110 MG/DL BORDERLINE-HIGH RISK: 130- 159 MG/DL 110-129 MG/DL HIGH RISK: >160 MG/DL >130 MG/DL *CHILDREN AND ADOLESCENTS REPRESENTS INDIVIDUALA AGED 2-19 YEARS EXCLUSIVE. Alb 4.8 g/dL 3.5-5.2 [facility] ([facility] CHRONIC KIDNEY DISEASE STAGING PER NKF: MALE [...] DESIRABLE: <130 MG/DL <110 MG/DL BORDERLINE-HIGH RISK: 130- 159 MG/DL 110-129 MG/DL HIGH RISK: >160 MG/DL >130 MG/DL *CHILDREN AND ADOLESCENTS REPRESENTS INDIVIDUALA AGED 2-19 YEARS EXCLUSIVE. TP 6.9 g/dL 6.6-8.7 [facility] ([facility] CHRONIC KIDNEY DISEASE STAGING PER NKF: MALE [...] DESIRABLE: <130 MG/DL <110 MG/DL BORDERLINE-HIGH RISK: 130- 159 MG/DL 110-129 MG/DL HIGH RISK: >160 MG/DL >130 MG/DL *CHILDREN AND ADOLESCENTS REPRESENTS INDIVIDUALA AGED 2-19 YEARS EXCLUSIVE. Alp 73.0 U/L 40-129 [facility] ([facility] CHRONIC KIDNEY DISEASE STAGING PER NKF: MALE [...] DESIRABLE: <130 MG/DL <110 MG/DL BORDERLINE-HIGH RISK: 130- 159 MG/DL 110-129 MG/DL HIGH RISK: >160 MG/DL >130 MG/DL *CHILDREN AND ADOLESCENTS REPRESENTS INDIVIDUALA AGED 2-19 YEARS EXCLUSIVE. A/G Ratio 2.3 CALC [facility] ([facility] CHRONIC KIDNEY DISEASE STAGING PER NKF: MALE [...] DESIRABLE: <130 MG/DL <110 MG/DL BORDERLINE-HIGH RISK: 130- 159 MG/DL 110-129 MG/DL HIGH RISK: >160 MG/DL >130 MG/DL *CHILDREN AND ADOLESCENTS REPRESENTS INDIVIDUALA AGED 2-19 YEARS EXCLUSIVE. Globulin 2.1 CALC [facility] ([facility] CHRONIC KIDNEY DISEASE STAGING PER NKF: MALE [...] DESIRABLE: <130 MG/DL <110 MG/DL BORDERLINE-HIGH RISK: 130- 159 MG/DL 110-129 MG/DL HIGH RISK: >160 MG/DL >130 MG/DL *CHILDREN AND ADOLESCENTS REPRESENTS INDIVIDUALA AGED 2-19 YEARS EXCLUSIVE. Ast (Sgot) 56 U/L 0-40 Above high normal [facility] ([facility] CHRONIC KIDNEY DISEASE STAGING PER NKF: MALE [...] DESIRABLE: <130 MG/DL <110 MG/DL BORDERLINE-HIGH RISK: 130- 159 MG/DL 110-129 MG/DL HIGH RISK: >160 MG/DL >130 MG/DL *CHILDREN AND ADOLESCENTS REPRESENTS INDIVIDUALA AGED 2-19 YEARS EXCLUSIVE. Tbili 0.80 mg/dL 0.0-1.2 [facility] ([facility] CHRONIC KIDNEY DISEASE STAGING PER NKF: MALE [...] DESIRABLE: <130 MG/DL <110 MG/DL BORDERLINE-HIGH RISK: 130- 159 MG/DL 110-129 MG/DL HIGH RISK: >160 MG/DL >130 MG/DL *CHILDREN AND ADOLESCENTS REPRESENTS INDIVIDUALA AGED 2-19 YEARS EXCLUSIVE. Alt (SGPT) 41 U/L 0-41 [facility] CHRONIC KIDNEY DISEASE STAGING PER NKF: MALE [...] DESIRABLE: <130 MG/DL <110 MG/DL BORDERLINE-HIGH RISK: 130- 159 MG/DL 110-129 MG/DL HIGH RISK: >160 MG/DL >130 MG/DL *CHILDREN AND ADOLESCENTS REPRESENTS INDIVIDUALA AGED 2-19 YEARS EXCLUSIVE. Anion Gap 15 mmol/L [facility] CHRONIC KIDNEY DISEASE STAGING PER NKF: MALE [...] DESIRABLE: <130 MG/DL <110 MG/DL BORDERLINE-HIGH RISK: 130- 159 MG/DL 110-129 MG/DL HIGH RISK: >160 MG/DL >130 MG/DL *CHILDREN AND ADOLESCENTS REPRESENTS INDIVIDUALA AGED 2-19 YEARS EXCLUSIVE. Osmolality-Calculated 285.1 CALC [facility] ([facility] CHRONIC KIDNEY DISEASE STAGING PER NKF: MALE [...] DESIRABLE: <130 MG/DL <110 MG/DL BORDERLINE-HIGH RISK: 130- 159 MG/DL 110-129 MG/DL HIGH RISK: >160 MG/DL >130 MG/DL *CHILDREN AND ADOLESCENTS REPRESENTS INDIVIDUALA AGED 2-19 YEARS EXCLUSIVE. eGFR 80 # [facility] ( [facility] CHRONIC KIDNEY DISEASE STAGING PER NKF: MALE [...] DESIRABLE: <130 MG/DL <110 MG/DL BORDERLINE-HIGH RISK: 130- 159 MG/DL 110-129 MG/DL HIGH RISK: >160 MG/DL >130 MG/DL *CHILDREN AND ADOLESCENTS REPRESENTS INDIVIDUALA AGED 2-19 YEARS EXCLUSIVE. eGFR Non-Afr. Bruneian 69 # [facility] ([facility] CHRONIC KIDNEY DISEASE STAGING PER NKF: MALE [...] DESIRABLE: <130 MG/DL <110 MG/DL BORDERLINE-HIGH RISK: 130- 159 MG/DL 110-129 MG/DL HIGH RISK: >160 MG/DL >130 MG/DL *CHILDREN AND ADOLESCENTS REPRESENTS INDIVIDUALA AGED 2-19 YEARS EXCLUSIVE. ID Date Data Source [id number] 04/08/2020 08:59:00 AM EDT [facility] Name Value Range Interpretation Code Description Data Daly rce(s) Supporting Document(s) Calcidiol [Mass/volume] in Serum or Plasma 28.7 ng/mL 30.0- 100.0 Below low normal [facility] ([facility] ) Vitamin D deficiency has been defined by the [place] of Medicine and an Endocrine Society practice guideline as a level of serum 25-OH vitamin D less than 20 ng/mL (1,2). The Endocrine Society went on to further define vitamin D insufficiency as a level between 21 and 29 ng/mL (2). 1. IOM (Anderson of Medicine). 2010. Di etary reference intakes for calcium and D. [place]: The National Academies Press. 2. Rosanna MCCORMACK, Chloe [place], Robin mcneil BARAJAS, et al. Evaluation, treatment, and prevention of vitamin D deficiency: an Endocrine Society clinical practice guideline. JCEM. 2010; 96(7):1911-30. ID Date Data Source [id number] 12/31/2019 09:24:00 AM EDT [facility] ([facility] Name Value Range Interpretation Code Description Data Daly rce(s) Supporting Document(s) Hemoglobin A1c/Hemoglobin.total in Blood 7.0 % 4.40-6.10 Above high normal [facility] ([facility] NORMAL RANGES Age WBC RBC HGB HCT [...] HCT IS 5% LESS SOURCE FOR DATA: [facility] 1800 OPERATION MANUAL( AUTOMATED BLOOD COUNTS AND [...] DESIRABLE: <130 MG/DL <110 MG/DL BORDERLINE-HIGH RISK: 130- 159 MG/DL 110-129 MG/DL HIGH RISK: >160 MG/DL >130 MG/DL *CHILDREN AND ADOLESCENTS REPRESENTS INDIVIDUALA AGED 2-19 YEARS EXCLUSIVE. ID Date Data Source [id number] 12/31/2019 09:24:00 AM EDT [facility] ([facility] Name Value Range Interpretation Code Description Data Daly rce(s) Supporting Document(s) Chol 148 mg/dL 0-200 [facility] NORMAL RANGES Age WBC RBC HGB HCT [...] HCT IS 5% LESS SOURCE FOR DATA: [facility] 1800 OPERATION MANUAL( AUTOMATED BLOOD COUNTS [...] DESIRABLE: <130 MG/DL <110 MG/DL BORDERLINE-HIGH RISK: 130- 159 MG/DL 110-129 MG/DL HIGH RISK: >160 MG/DL >130 MG/DL *CHILDREN AND ADOLESCENTS REPRESENTS INDIVIDUALA AGED 2-19 YEARS EXCLUSIVE. LDL_C 64 Calc 75-129 Below low normal [facility] ( [facility] NORMAL RANGES Age WBC RBC HGB HCT [...] HCT IS 5% LESS SOURCE FOR DATA: [facility] 1800 OPERATION MANUAL( AUTOMATED BLOOD COUNTS AND [...] DESIRABLE: <130 MG/DL <110 MG/DL BORDERLINE-HIGH RISK: 130- 159 MG/DL 110-129 MG/DL HIGH RISK: >160 MG/DL >130 MG/DL *CHILDREN AND ADOLESCENTS REPRESENTS INDIVIDUALA AGED 2-19 YEARS EXCLUSIVE. Trig 232 mg/dL 35-200 Above high normal [facility] ([facility] NORMAL RANGES Age WBC RBC HGB HCT [...] HCT IS 5% LESS SOURCE FOR DATA: [facility] 1800 OPERATION MANUAL( AUTOMATED BLOOD COUNTS AND [...] DESIRABLE: <130 MG/DL <110 MG/DL BORDERLINE-HIGH RISK: 130- 159 MG/DL 110-129 MG/DL HIGH RISK: >160 MG/DL >130 MG/DL *CHILDREN AND ADOLESCENTS REPRESENTS INDIVIDUALA AGED 2-19 YEARS EXCLUSIVE. Cholesterol in HDL [Mass/volume] in Serum or Plasma 38 mg/dL 35-[address] [facility] NORMAL RANGES Age WBC RBC HGB HCT [...] HCT IS 5% LESS SOURCE FOR DATA: [facility] 1800 OPERATION MANUAL( AUTOMATED BLOOD COUNTS [...] DESIRABLE: <130 MG/DL <110 MG/DL BORDERLINE-HIGH RISK: 130- 159 MG/DL 110-129 MG/DL HIGH RISK: >160 MG/DL >130 MG/DL *CHILDREN AND ADOLESCENTS REPRESENTS INDIVIDUALA AGED 2-19 YEARS EXCLUSIVE. Cho/HDL Ratio 3.[address] [facility] NORMAL RANGES Age WBC RBC HGB HCT [...] HCT IS 5% LESS SOURCE FOR DATA: [facility] 1800 OPERATION MANUAL( AUTOMATED BLOOD COUNTS AND [...] DESIRABLE: <130 MG/DL <110 MG/DL BORDERLINE-HIGH RISK: 130- 159 MG/DL 110-129 MG/DL HIGH RISK: >160 MG/DL >130 MG/DL *CHILDREN AND ADOLESCENTS REPRESENTS INDIVIDUALA AGED 2-19 YEARS EXCLUSIVE. ID Date Data Source [id number] 12/31/2019 09:24:00 AM EDT [facility] ([facility] Name Value Range Interpretation Code Description Data Daly rce(s) Supporting Document(s) Glu 156 mg/dL 70-110 Above high normal [facility] ([facility] NORMAL RANGES Age WBC RBC HGB HCT [...] HCT IS 5% LESS SOURCE FOR DATA: [facility] 1800 OPERATION MANUAL( AUTOMATED BLOOD COUNTS AND [...] DESIRABLE: <130 MG/DL <110 MG/DL BORDERLINE-HIGH RISK: 130- 159 MG/DL 110-129 MG/DL HIGH RISK: >160 MG/DL >130 MG/DL *CHILDREN AND ADOLESCENTS REPRESENTS INDIVIDUALA AGED 2-19 YEARS EXCLUSIVE. Creat 1.1 mg/dL 0.7-1.[address] [facility] NORMAL RANGES Age WBC RBC HGB HCT [...] HCT IS 5% LESS SOURCE FOR DATA: [facility] 1800 OPERATION MANUAL( AUTOMATED BLOOD COUNTS AND [...] DESIRABLE: <130 MG/DL <110 MG/DL BORDERLINE-HIGH RISK: 130- 159 MG/DL 110-129 MG/DL HIGH RISK: >160 MG/DL >130 MG/DL *CHILDREN AND ADOLESCENTS REPRESENTS INDIVIDUALA AGED 2-19 YEARS EXCLUSIVE. BUN 18 mg/dL 8-23 [facility] ([facility] NORMAL RANGES Age WBC RBC HGB HCT [...] HCT IS 5% LESS SOURCE FOR DATA: [facility] 1800 OPERATION MANUAL( AUTOMATED BLOOD COUNTS AND [...] DESIRABLE: <130 MG/DL <110 MG/DL BORDERLINE-HIGH RISK: 130- 159 MG/DL 110-129 MG/DL HIGH RISK: >160 MG/DL >130 MG/DL *CHILDREN AND ADOLESCENTS REPRESENTS INDIVIDUALA AGED 2-19 YEARS EXCLUSIVE. BUN/Creatinine Ratio 17.0 CALC [facility] ([facility] NORMAL RANGES Age WBC RBC HGB HCT [...] HCT IS 5% LESS SOURCE FOR DATA: [facility] 1800 OPERATION MANUAL( AUTOMATED BLOOD COUNTS [...] DESIRABLE: <130 MG/DL <110 MG/DL BORDERLINE-HIGH RISK: 130- 159 MG/DL 110-129 MG/DL HIGH RISK: >160 MG/DL >130 MG/DL *CHILDREN AND ADOLESCENTS REPRESENTS INDIVIDUALA AGED 2-19 YEARS EXCLUSIVE. Na 140 mmol/L 136-[address] [facility] NORMAL RANGES Age WBC RBC HGB HCT [...] HCT IS 5% LESS SOURCE FOR DATA: [facility] 1800 OPERATION MANUAL( AUTOMATED BLOOD COUNTS AND [...] DESIRABLE: <130 MG/DL <110 MG/DL BORDERLINE-HIGH RISK: 130- 159 MG/DL 110-129 MG/DL HIGH RISK: >160 MG/DL >130 MG/DL *CHILDREN AND ADOLESCENTS REPRESENTS INDIVIDUALA AGED 2-19 YEARS EXCLUSIVE. CL 101.5 mmol/L 98.0-107.[address] [facility] ([facility] NORMAL RANGES Age WBC RBC HGB HCT [...] HCT IS 5% LESS SOURCE FOR DATA: [facility] 1800 OPERATION MANUAL( AUTOMATED BLOOD COUNTS AND [...] DESIRABLE: <130 MG/DL <110 MG/DL BORDERLINE-HIGH RISK: 130- 159 MG/DL 110-129 MG/DL HIGH RISK: >160 MG/DL >130 MG/DL *CHILDREN AND ADOLESCENTS REPRESENTS INDIVIDUALA AGED 2-19 YEARS EXCLUSIVE. K 3.7 mmol/L 3.5-5.1 [facility] ([facility] NORMAL RANGES Age WBC RBC HGB HCT [...] HCT IS 5% LESS SOURCE FOR DATA: [facility] 1800 OPERATION MANUAL( AUTOMATED BLOOD COUNTS AND [...] DESIRABLE: <130 MG/DL <110 MG/DL BORDERLINE-HIGH RISK: 130- 159 MG/DL 110-129 MG/DL HIGH RISK: >160 MG/DL >130 MG/DL *CHILDREN AND ADOLESCENTS REPRESENTS INDIVIDUALA AGED 2-19 YEARS EXCLUSIVE. Co2 25.4 mmol/L 22.0-29.[address] [facility] ([facility] NORMAL RANGES Age WBC RBC HGB HCT [...] HCT IS 5% LESS SOURCE FOR DATA: [facility] 1800 OPERATION MANUAL( AUTOMATED BLOOD COUNTS AND [...] DESIRABLE: <130 MG/DL <110 MG/DL BORDERLINE-HIGH RISK: 130- 159 MG/DL 110-129 MG/DL HIGH RISK: >160 MG/DL >130 MG/DL *CHILDREN AND ADOLESCENTS REPRESENTS INDIVIDUALA AGED 2-19 YEARS EXCLUSIVE. CA 10.3 mg/dL 8.6-10.2 Above high normal [facility] ([facility] NORMAL RANGES Age WBC RBC HGB HCT [...] HCT IS 5% LESS SOURCE FOR DATA: [facility] 1800 OPERATION MANUAL( AUTOMATED BLOOD COUNTS AND [...] DESIRABLE: <130 MG/DL <110 MG/DL BORDERLINE-HIGH RISK: 130- 159 MG/DL 110-129 MG/DL HIGH RISK: >160 MG/DL >130 MG/DL *CHILDREN AND ADOLESCENTS REPRESENTS INDIVIDUALA AGED 2-19 YEARS EXCLUSIVE. TP 7.0 g/dL 6.6-8.[address] [facility] NORMAL RANGES Age WBC RBC HGB HCT [...] HCT IS 5% LESS SOURCE FOR DATA: [facility] 1800 OPERATION MANUAL( AUTOMATED BLOOD COUNTS AND [...] DESIRABLE: <130 MG/DL <110 MG/DL BORDERLINE-HIGH RISK: 130- 159 MG/DL 110-129 MG/DL HIGH RISK: >160 MG/DL >130 MG/DL *CHILDREN AND ADOLESCENTS REPRESENTS INDIVIDUALA AGED 2-19 YEARS EXCLUSIVE. A/G Ratio 2.[address] [facility] ([facility] NORMAL RANGES Age WBC RBC HGB HCT [...] HCT IS 5% LESS SOURCE FOR DATA: [facility] 1800 OPERATION MANUAL( AUTOMATED BLOOD COUNTS AND [...] DESIRABLE: <130 MG/DL <110 MG/DL BORDERLINE-HIGH RISK: 130- 159 MG/DL 110-129 MG/DL HIGH RISK: >160 MG/DL >130 MG/DL *CHILDREN AND ADOLESCENTS REPRESENTS INDIVIDUALA AGED 2-19 YEARS EXCLUSIVE. Alb 4.7 g/dL 3.5-5.2 [facility] NORMAL RANGES Age WBC RBC HGB HCT [...] HCT IS 5% LESS SOURCE FOR DATA: [facility] 1800 OPERATION MANUAL( AUTOMATED BLOOD COUNTS AND [...] DESIRABLE: <130 MG/DL <110 MG/DL BORDERLINE-HIGH RISK: 130- 159 MG/DL 110-129 MG/DL HIGH RISK: >160 MG/DL >130 MG/DL *CHILDREN AND ADOLESCENTS REPRESENTS INDIVIDUALA AGED 2-19 YEARS EXCLUSIVE. Alt (SGPT) 34 U/L 0-[address] [facility] NORMAL RANGES Age WBC RBC HGB HCT [...] HCT IS 5% LESS SOURCE FOR DATA: [facility] 1800 OPERATION MANUAL( AUTOMATED BLOOD COUNTS AND [...] DESIRABLE: <130 MG/DL <110 MG/DL BORDERLINE-HIGH RISK: 130- 159 MG/DL 110-129 MG/DL HIGH RISK: >160 MG/DL >130 MG/DL *CHILDREN AND ADOLESCENTS REPRESENTS INDIVIDUALA AGED 2-19 YEARS EXCLUSIVE. Alp 68.6 U/L 40-129 [facility] ([facility] NORMAL RANGES Age WBC RBC HGB HCT [...] HCT IS 5% LESS SOURCE FOR DATA: [facility] 1800 OPERATION MANUAL( AUTOMATED BLOOD COUNTS AND [...] DESIRABLE: <130 MG/DL <110 MG/DL BORDERLINE-HIGH RISK: 130- 159 MG/DL 110-129 MG/DL HIGH RISK: >160 MG/DL >130 MG/DL *CHILDREN AND ADOLESCENTS REPRESENTS INDIVIDUALA AGED 2-19 YEARS EXCLUSIVE. Globulin 2.[address] [facility] ([facility] NORMAL RANGES Age WBC RBC HGB HCT [...] HCT IS 5% LESS SOURCE FOR DATA: [facility] 1800 OPERATION MANUAL( AUTOMATED BLOOD COUNTS AND [...] DESIRABLE: <130 MG/DL <110 MG/DL BORDERLINE-HIGH RISK: 130- 159 MG/DL 110-129 MG/DL HIGH RISK: >160 MG/DL >130 MG/DL *CHILDREN AND ADOLESCENTS REPRESENTS INDIVIDUALA AGED 2-19 YEARS EXCLUSIVE. Osmolality-Calculated 284.5 CALC [facility] ([facility] NORMAL RANGES Age WBC RBC HGB HCT [...] HCT IS 5% LESS SOURCE FOR DATA: [facility] 1800 OPERATION MANUAL( AUTOMATED BLOOD COUNTS AND [...] DESIRABLE: <130 MG/DL <110 MG/DL BORDERLINE-HIGH RISK: 130- 159 MG/DL 110-129 MG/DL HIGH RISK: >160 MG/DL >130 MG/DL *CHILDREN AND ADOLESCENTS REPRESENTS INDIVIDUALA AGED 2-19 YEARS EXCLUSIVE. Tbili 0.80 mg/dL 0.0-1.[address] [facility] NORMAL RANGES Age WBC RBC HGB HCT [...] HCT IS 5% LESS SOURCE FOR DATA: [facility] 1800 OPERATION MANUAL( AUTOMATED BLOOD COUNTS AND [...] DESIRABLE: <130 MG/DL <110 MG/DL BORDERLINE-HIGH RISK: 130- 159 MG/DL 110-129 MG/DL HIGH RISK: >160 MG/DL >130 MG/DL *CHILDREN AND ADOLESCENTS REPRESENTS INDIVIDUALA AGED 2-19 YEARS EXCLUSIVE. Ast (Sgot) 43 U/L 0-40 Above high normal [facility] ([facility] NORMAL RANGES Age WBC RBC HGB HCT [...] HCT IS 5% LESS SOURCE FOR DATA: [facility] 1800 OPERATION MANUAL( AUTOMATED BLOOD COUNTS AND [...] DESIRABLE: <130 MG/DL <110 MG/DL BORDERLINE-HIGH RISK: 130- 159 MG/DL 110-129 MG/DL HIGH RISK: >160 MG/DL >130 MG/DL *CHILDREN AND ADOLESCENTS REPRESENTS INDIVIDUALA AGED 2-19 YEARS EXCLUSIVE. eGFR Non-Afr. Bruneian 69 # [facility] ([facility] NORMAL RANGES Age WBC RBC HGB HCT [...] HCT IS 5% LESS SOURCE FOR DATA: [facility] 1800 OPERATION MANUAL( AUTOMATED BLOOD COUNTS [...] DESIRABLE: <130 MG/DL <110 MG/DL BORDERLINE-HIGH RISK: 130- 159 MG/DL 110-129 MG/DL HIGH RISK: >160 MG/DL >130 MG/DL *CHILDREN AND ADOLESCENTS REPRESENTS INDIVIDUALA AGED 2-19 YEARS EXCLUSIVE. eGFR 80 # [facility] ( [facility] NORMAL RANGES Age WBC RBC HGB HCT [...] HCT IS 5% LESS SOURCE FOR DATA: [facility] 1800 OPERATION MANUAL( AUTOMATED BLOOD COUNTS AND [...] DESIRABLE: <130 MG/DL <110 MG/DL BORDERLINE-HIGH RISK: 130- 159 MG/DL 110-129 MG/DL HIGH RISK: >160 MG/DL >130 MG/DL *CHILDREN AND ADOLESCENTS REPRESENTS INDIVIDUALA AGED 2-19 YEARS EXCLUSIVE. Anion Gap 17 mmol/L [facility] NORMAL RANGES Age WBC RBC HGB HCT [...] HCT IS 5% LESS SOURCE FOR DATA: [facility] 1800 OPERATION MANUAL( AUTOMATED BLOOD COUNTS AND [...] DESIRABLE: <130 MG/DL <110 MG/DL BORDERLINE-HIGH RISK: 130- 159 MG/DL 110-129 MG/DL HIGH RISK: >160 MG/DL >130 MG/DL *CHILDREN AND ADOLESCENTS REPRESENTS INDIVIDUALA AGED 2-19 YEARS EXCLUSIVE. ID Date Data Source [id number] 12/31/2019 09:24:00 AM EDT [facility] ([facility] Name Value Range Interpretation Code Description Data Daly rce(s) Supporting Document(s) WBC 5.5 10E3/uL 4.1-10.9 [facility] ([facility] NORMAL RANGES Age WBC RBC HGB HCT [...] HCT IS 5% LESS SOURCE FOR DATA: [facility] 1800 OPERATION MANUAL( AUTOMATED BLOOD COUNTS AND [...] DESIRABLE: <130 MG/DL <110 MG/DL BORDERLINE-HIGH RISK: 130- 159 MG/DL 110-129 MG/DL HIGH RISK: >160 MG/DL >130 MG/DL *CHILDREN AND ADOLESCENTS REPRESENTS INDIVIDUALA AGED 2-19 YEARS EXCLUSIVE. RBC 5.19 10E6/uL 4.20-6.30 [facility] ([facility] NORMAL RANGES Age WBC RBC HGB HCT [...] HCT IS 5% LESS SOURCE FOR DATA: [facility] 1800 OPERATION MANUAL( AUTOMATED BLOOD COUNTS AND [...] DESIRABLE: <130 MG/DL <110 MG/DL BORDERLINE-HIGH RISK: 130- 159 MG/DL 110-129 MG/DL HIGH RISK: >160 MG/DL >130 MG/DL *CHILDREN AND ADOLESCENTS REPRESENTS INDIVIDUALA AGED 2-19 YEARS EXCLUSIVE. HGB 17.1 g/dL 12.0-18.[address] [facility] NORMAL RANGES Age WBC RBC HGB HCT [...] HCT IS 5% LESS SOURCE FOR DATA: [facility] 1800 OPERATION MANUAL( AUTOMATED BLOOD COUNTS [...] DESIRABLE: <130 MG/DL <110 MG/DL BORDERLINE-HIGH RISK: 130- 159 MG/DL 110-129 MG/DL HIGH RISK: >160 MG/DL >130 MG/DL *CHILDREN AND ADOLESCENTS REPRESENTS INDIVIDUALA AGED 2-19 YEARS EXCLUSIVE. HCT 46.9 % 37.0-51.[address] [facility] NORMAL RANGES Age WBC RBC HGB HCT [...] HCT IS 5% LESS SOURCE FOR DATA: [facility] 1800 OPERATION MANUAL( AUTOMATED BLOOD COUNTS AND [...] DESIRABLE: <130 MG/DL <110 MG/DL BORDERLINE-HIGH RISK: 130- 159 MG/DL 110-129 MG/DL HIGH RISK: >160 MG/DL >130 MG/DL *CHILDREN AND ADOLESCENTS REPRESENTS INDIVIDUALA AGED 2-19 YEARS EXCLUSIVE. MCV 90.4 fL 80.0-97.0 [facility] ([facility] NORMAL RANGES Age WBC RBC HGB HCT [...] HCT IS 5% LESS SOURCE FOR DATA: [facility] 1800 OPERATION MANUAL( AUTOMATED BLOOD COUNTS AND [...] DESIRABLE: <130 MG/DL <110 MG/DL BORDERLINE-HIGH RISK: 130- 159 MG/DL 110-129 MG/DL HIGH RISK: >160 MG/DL >130 MG/DL *CHILDREN AND ADOLESCENTS REPRESENTS INDIVIDUALA AGED 2-19 YEARS EXCLUSIVE. MCH 32.9 pg 26.0-32.0 Above high normal [facility] ([facility] NORMAL RANGES Age WBC RBC HGB HCT [...] HCT IS 5% LESS SOURCE FOR DATA: [facility] 1800 OPERATION MANUAL( AUTOMATED BLOOD COUNTS [...] DESIRABLE: <130 MG/DL <110 MG/DL BORDERLINE-HIGH RISK: 130- 159 MG/DL 110-129 MG/DL HIGH RISK: >160 MG/DL >130 MG/DL *CHILDREN AND ADOLESCENTS REPRESENTS INDIVIDUALA AGED 2-19 YEARS EXCLUSIVE. PLT 111 10E3/uL 140-440 Below low normal [facility] ([facility] NORMAL RANGES Age WBC RBC HGB HCT [...] HCT IS 5% LESS SOURCE FOR DATA: [facility] 1800 OPERATION MANUAL( AUTOMATED BLOOD COUNTS AND [...] DESIRABLE: <130 MG/DL <110 MG/DL BORDERLINE-HIGH RISK: 130- 159 MG/DL 110-129 MG/DL HIGH RISK: >160 MG/DL >130 MG/DL *CHILDREN AND ADOLESCENTS REPRESENTS INDIVIDUALA AGED 2-19 YEARS EXCLUSIVE. [facility] 31.0-36.0 Above high normal [facility] ([facility] NORMAL RANGES Age WBC RBC HGB HCT [...] HCT IS 5% LESS SOURCE FOR DATA: [facility] 1800 OPERATION MANUAL( AUTOMATED BLOOD COUNTS AND [...] DESIRABLE: <130 MG/DL <110 MG/DL BORDERLINE-HIGH RISK: 130- 159 MG/DL 110-129 MG/DL HIGH RISK: >160 MG/DL >130 MG/DL *CHILDREN AND ADOLESCENTS REPRESENTS INDIVIDUALA AGED 2-19 YEARS EXCLUSIVE. Lym% 32.7 % 10.0-58.5 [facility] NORMAL RANGES Age WBC RBC HGB HCT [...] HCT IS 5% LESS SOURCE FOR DATA: [facility] 1800 OPERATION MANUAL( AUTOMATED BLOOD COUNTS AND [...] DESIRABLE: <130 MG/DL <110 MG/DL BORDERLINE-HIGH RISK: 130- 159 MG/DL 110-129 MG/DL HIGH RISK: >160 MG/DL >130 MG/DL *CHILDREN AND ADOLESCENTS REPRESENTS INDIVIDUALA AGED 2-19 YEARS EXCLUSIVE. Neut% 57.5 % 37.0-92.0 [facility] ([facility] NORMAL RANGES Age WBC RBC HGB HCT [...] HCT IS 5% LESS SOURCE FOR DATA: [facility] 1800 OPERATION MANUAL( AUTOMATED BLOOD COUNTS [...] DESIRABLE: <130 MG/DL <110 MG/DL BORDERLINE-HIGH RISK: 130- 159 MG/DL 110-129 MG/DL HIGH RISK: >160 MG/DL >130 MG/DL *CHILDREN AND ADOLESCENTS REPRESENTS INDIVIDUALA AGED 2-19 YEARS EXCLUSIVE. RDW-CV 13.7 % 11.5-14.5 [facility] NORMAL RANGES Age WBC RBC HGB HCT [...] HCT IS 5% LESS SOURCE FOR DATA: [facility] 1800 OPERATION MANUAL( AUTOMATED BLOOD COUNTS AND [...] DESIRABLE: <130 MG/DL <110 MG/DL BORDERLINE-HIGH RISK: 130- 159 MG/DL 110-129 MG/DL HIGH RISK: >160 MG/DL >130 MG/DL *CHILDREN AND ADOLESCENTS REPRESENTS INDIVIDUALA AGED 2-19 YEARS EXCLUSIVE. Lym# 1.8 10E3/uL 0.6-4.1 [facility] ([facility] NORMAL RANGES Age WBC RBC HGB HCT [...] HCT IS 5% LESS SOURCE FOR DATA: [facility] 1800 OPERATION MANUAL( AUTOMATED BLOOD COUNTS AND [...] DESIRABLE: <130 MG/DL <110 MG/DL BORDERLINE-HIGH RISK: 130- 159 MG/DL 110-129 MG/DL HIGH RISK: >160 MG/DL >130 MG/DL *CHILDREN AND ADOLESCENTS REPRESENTS INDIVIDUALA AGED 2-19 YEARS EXCLUSIVE. Neut# 3.2 % 2.0-7.8 [facility] ([facility] NORMAL RANGES Age WBC RBC HGB HCT [...] HCT IS 5% LESS SOURCE FOR DATA: [facility] 1800 OPERATION MANUAL( AUTOMATED BLOOD COUNTS AND [...] DESIRABLE: <130 MG/DL <110 MG/DL BORDERLINE-HIGH RISK: 130- 159 MG/DL 110-129 MG/DL HIGH RISK: >160 MG/DL >130 MG/DL *CHILDREN AND ADOLESCENTS REPRESENTS INDIVIDUALA AGED 2-19 YEARS EXCLUSIVE. MXD% 9.8 % 0.1-24.0 [facility] ([facility] NORMAL RANGES Age WBC RBC HGB HCT [...] HCT IS 5% LESS SOURCE FOR DATA: [facility] 1800 OPERATION MANUAL( AUTOMATED BLOOD COUNTS AND [...] DESIRABLE: <130 MG/DL <110 MG/DL BORDERLINE-HIGH RISK: 130- 159 MG/DL 110-129 MG/DL HIGH RISK: >160 MG/DL >130 MG/DL *CHILDREN AND ADOLESCENTS REPRESENTS INDIVIDUALA AGED 2-19 YEARS EXCLUSIVE. MXD# 0.5 10E3/uL 0.0-1.8 [facility] ([facility] NORMAL RANGES Age WBC RBC HGB HCT [...] HCT IS 5% LESS SOURCE FOR DATA: [facility] 1800 OPERATION MANUAL( AUTOMATED BLOOD COUNTS AND [...] DESIRABLE: <130 MG/DL <110 MG/DL BORDERLINE-HIGH RISK: 130- 159 MG/DL 110-129 MG/DL HIGH RISK: >160 MG/DL >130 MG/DL *CHILDREN AND ADOLESCENTS REPRESENTS INDIVIDUALA AGED 2-19 YEARS EXCLUSIVE. MPV 11.1 fL 9.0-13.0 [facility] ([facility] NORMAL RANGES Age WBC RBC HGB HCT [...] HCT IS 5% LESS SOURCE FOR DATA: [facility] 1800 OPERATION MANUAL( AUTOMATED BLOOD COUNTS AND [...] DESIRABLE: <130 MG/DL <110 MG/DL BORDERLINE-HIGH RISK: 130- 159 MG/DL 110-129 MG/DL HIGH RISK: >160 MG/DL >130 MG/DL *CHILDREN AND ADOLESCENTS REPRESENTS INDIVIDUALA AGED 2-19 YEARS EXCLUSIVE. ID Date Data Source [id number] 09/24/2019 09:08:00 AM EDT [facility] ([facility] Name Value Range Interpretation Code Description Data Daly rce(s) Supporting Document(s) Thyrotropin [Units/volume] in Serum or Plasma 1.731 ulU/mL 0.60-4.8 [facility] ([facility] ID Date Data Source [id number] 09/24/2019 09:08:00 AM EDT [facility] ([facility] Name Value Range Interpretation Code Description Data Daly rce(s) Supporting Document(s) Hemoglobin A1c/Hemoglobin.total in Blood 6.8 % 4.40-6.10 Above high normal [facility] ([facility] CLASSIFICATION CHOLESTEROL FO R ADULTS CHILDREN/ADOLESCENTS* DESIRABLE: <200 MG/DL <170 MG/DL BORDER-LINE HIGH RISK: 200-239 MG/DL 170-199 MG/DL HIGH RISK: >240 MG/DL >200 MG/DL CLASS. FOR PRIMARY LDL CHOL PREVENTION: LDL CHOL-CHILD/ADOLESCENTS* DESIRABLE: <130 MG/DL <110 MG/DL BORDERLINE-HIGH RISK: 130-159 MG/DL 110-129 MG/DL HIGH RISK: >160 MG/DL >130 MG/DL *CHILDREN AND ADOLESCENTS REPRESENTS INDIVIDUALA AGED 2-19 YEARS EXCLUSIVE. CHRONIC KIDNEY DISEASE STAGING PER NKF: MALE [...] mL/min Normal 80 and above >32 mL/min NormalNORMAL RANGES Age WBC RBC HGB HCT MCV PLT Adult M 4.1-10.9 4.20-6.30 12.0-18.0 37.0-51.0 80-97 140-440 Adult F 4.1-10.9 4.04-5.48 12.0-18.0 37.0-51.0 80-97 140-440 0- 1 Yr 5.0-20.0 3.9-5.9 15-18 MV: 44 MV: 91 MV: 277 2-9 Yr. 6.0-17.0 3.8-5.4 11-13 MV: 37 MV: 78 MV: 300 10 Yrs. 5.0-13.0 3.8-5.4 12-15 MV: 39 MV: 80 MV: 250 NOTE: * FOR ADULT BLACK MALES AND FEMALES, NORMAL WBC IS 2.9-7.7 K/ML * FOR ADULT BLACK MALES AND FEMALES, NORMAL RBC,HGB, AND HCT IS 5% LESS SOURCE FOR DATA: [facility] 1800 OPERATION MANUAL( AUTOMATED BLOOD COUNTS AND DIFF.) APPENDIX B-3 ID Date Data Source [id number] 09/24/2019 09:08:00 AM EDT [facility] ([facility] Name Value Range Interpretation Code Description Data Daly rce(s) Supporting Document(s) Trig 265 mg/dL 35-200 Above high normal [facility] ([facility] CLASSIFICATION CHOLESTEROL FO R ADULTS CHILDREN/ADOLESCENTS* DESIRABLE: <200 MG/DL <170 MG/DL BORDER-LINE HIGH RISK: 200-239 MG/DL 170-199 MG/DL HIGH RISK: >240 MG/DL >200 MG/DL CLASS. FOR PRIMARY LDL CHOL PREVENTION: LDL CHOL-CHILD/ADOLESCENTS* DESIRABLE: <130 MG/DL <110 MG/DL BORDERLINE-HIGH RISK: 130-159 MG/DL 110-129 MG/DL HIGH RISK: >160 MG/DL >130 MG/DL *CHILDREN AND ADOLESCENTS REPRESENTS INDIVIDUALA AGED 2-19 YEARS EXCLUSIVE. CHRONIC KIDNEY DISEASE STAGING PER NKF: MALE [...] mL/min Normal 80 and above >32 mL/min NormalNORMAL RANGES Age WBC RBC HGB HCT MCV PLT Adult M 4.1-10.9 4.20-6.30 12.0-18.0 37.0-51.0 80-97 140-440 Adult F 4.1-10.9 4.04-5.48 12.0-18.0 37.0-51.0 80-97 140-440 0- 1 Yr 5.0-20.0 3.9-5.9 15-18 MV: 44 MV: 91 MV: 277 2-9 Yr. 6.0-17.0 3.8-5.4 11-13 MV: 37 MV: 78 MV: 300 10 Yrs. 5.0-13.0 3.8-5.4 12-15 MV: 39 MV: 80 MV: 250 NOTE: * FOR ADULT BLACK MALES AND FEMALES, NORMAL WBC IS 2.9-7.7 K/ML * FOR ADULT BLACK MALES AND FEMALES, NORMAL RBC,HGB, AND HCT IS 5% LESS SOURCE FOR DATA: [facility] 1800 OPERATION MANUAL( AUTOMATED BLOOD COUNTS AND DIFF.) APPENDIX B-3 Chol 160 mg/dL 0-[address] [facility] CLASSIFICATION CHOLESTEROL FO R ADULTS CHILDREN/ADOLESCENTS* DESIRABLE: <200 MG/DL <170 MG/DL BORDER-LINE HIGH RISK: 200-239 MG/DL 170-199 MG/DL HIGH RISK: >240 MG/DL >200 MG/DL CLASS. FOR PRIMARY LDL CHOL PREVENTION: LDL CHOL-CHILD/ADOLESCENTS* DESIRABLE: <130 MG/DL <110 MG/DL BORDERLINE-HIGH RISK: 130-159 MG/DL 110-129 MG/DL HIGH RISK: >160 MG/DL >130 MG/DL *CHILDREN AND ADOLESCENTS REPRESENTS INDIVIDUALA AGED 2-19 YEARS EXCLUSIVE. CHRONIC KIDNEY DISEASE STAGING PER NKF: MALE [...] mL/min Normal 80 and above >32 mL/min NormalNORMAL RANGES Age WBC RBC HGB HCT MCV PLT Adult M 4.1-10.9 4.20-6.30 12.0-18.0 37.0-51.0 80-97 140-440 Adult F 4.1-10.9 4.04-5.48 12.0-18.0 37.0-51.0 80-97 140-440 0- 1 Yr 5.0-20.0 3.9-5.9 15-18 MV: 44 MV: 91 MV: 277 2-9 Yr. 6.0-17.0 3.8-5.4 11-13 MV: 37 MV: 78 MV: 300 10 Yrs. 5.0-13.0 3.8-5.4 12-15 MV: 39 MV: 80 MV: 250 NOTE: * FOR ADULT BLACK MALES AND FEMALES, NORMAL WBC IS 2.9-7.7 K/ML * FOR ADULT BLACK MALES AND FEMALES, NORMAL RBC,HGB, AND HCT IS 5% LESS SOURCE FOR DATA: [facility] 1800 OPERATION MANUAL( AUTOMATED BLOOD COUNTS AND DIFF.) APPENDIX B-3 Prostate specific Ag [Mass/volume] in Serum or Plasma 43 mg/dL 35-5 [address] [facility] ([facility] CLASSIFICATION CHOLESTEROL FO R ADULTS CHILDREN/ADOLESCENTS* DESIRABLE: <200 MG/DL <170 MG/DL BORDER-LINE HIGH RISK: 200-239 MG/DL 170-199 MG/DL HIGH RISK: >240 MG/DL >200 MG/DL CLASS. FOR PRIMARY LDL CHOL PREVENTION: LDL CHOL-CHILD/ADOLESCENTS* DESIRABLE: <130 MG/DL <110 MG/DL BORDERLINE-HIGH RISK: 130-159 MG/DL 110-129 MG/DL HIGH RISK: >160 MG/DL >130 MG/DL *CHILDREN AND ADOLESCENTS REPRESENTS INDIVIDUALA AGED 2-19 YEARS EXCLUSIVE. CHRONIC KIDNEY DISEASE STAGING PER NKF: MALE [...] mL/min Normal 80 and above >32 mL/min NormalNORMAL RANGES Age WBC RBC HGB HCT MCV PLT Adult M 4.1-10.9 4.20-6.30 12.0-18.0 37.0-51.0 80-97 140-440 Adult F 4.1-10.9 4.04-5.48 12.0-18.0 37.0-51.0 80-97 140-440 0- 1 Yr 5.0-20.0 3.9-5.9 15-18 MV: 44 MV: 91 MV: 277 2-9 Yr. 6.0-17.0 3.8-5.4 11-13 MV: 37 MV: 78 MV: 300 10 Yrs. 5.0-13.0 3.8-5.4 12-15 MV: 39 MV: 80 MV: 250 NOTE: * FOR ADULT BLACK MALES AND FEMALES, NORMAL WBC IS 2.9-7.7 K/ML * FOR ADULT BLACK MALES AND FEMALES, NORMAL RBC,HGB, AND HCT IS 5% LESS SOURCE FOR DATA: [facility] 1800 OPERATION MANUAL( AUTOMATED BLOOD COUNTS AND DIFF.) APPENDIX B-3 Cho/HDL Ratio 3.7 CALC [facility] ([facility] CLASSIFICATION CHOLESTEROL FO R ADULTS CHILDREN/ADOLESCENTS* DESIRABLE: <200 MG/DL <170 MG/DL BORDER-LINE HIGH RISK: 200-239 MG/DL 170-199 MG/DL HIGH RISK: >240 MG/DL >200 MG/DL CLASS. FOR PRIMARY LDL CHOL PREVENTION: LDL CHOL-CHILD/ADOLESCENTS* DESIRABLE: <130 MG/DL <110 MG/DL BORDERLINE-HIGH RISK: 130-159 MG/DL 110-129 MG/DL HIGH RISK: >160 MG/DL >130 MG/DL *CHILDREN AND ADOLESCENTS REPRESENTS INDIVIDUALA AGED 2-19 YEARS EXCLUSIVE. CHRONIC KIDNEY DISEASE STAGING PER NKF: MALE [...] mL/min Normal 80 and above >32 mL/min NormalNORMAL RANGES Age WBC RBC HGB HCT MCV PLT Adult M 4.1-10.9 4.20-6.30 12.0-18.0 37.0-51.0 80-97 140-440 Adult F 4.1-10.9 4.04-5.48 12.0-18.0 37.0-51.0 80-97 140-440 0- 1 Yr 5.0-20.0 3.9-5.9 15-18 MV: 44 MV: 91 MV: 277 2-9 Yr. 6.0-17.0 3.8-5.4 11-13 MV: 37 MV: 78 MV: 300 10 Yrs. 5.0-13.0 3.8-5.4 12-15 MV: 39 MV: 80 MV: 250 NOTE: * FOR ADULT BLACK MALES AND FEMALES, NORMAL WBC IS 2.9-7.7 K/ML * FOR ADULT BLACK MALES AND FEMALES, NORMAL RBC,HGB, AND HCT IS 5% LESS SOURCE FOR DATA: [facility] 1800 OPERATION MANUAL( AUTOMATED BLOOD COUNTS AND DIFF.) APPENDIX B-3 LDL_C 64 Calc 75-129 Below low normal [facility] ( [facility] CLASSIFICATION CHOLESTEROL FO R ADULTS CHILDREN/ADOLESCENTS* DESIRABLE: <200 MG/DL <170 MG/DL BORDER-LINE HIGH RISK: 200-239 MG/DL 170-199 MG/DL HIGH RISK: >240 MG/DL >200 MG/DL CLASS. FOR PRIMARY LDL CHOL PREVENTION: LDL CHOL-CHILD/ADOLESCENTS* DESIRABLE: <130 MG/DL <110 MG/DL BORDERLINE-HIGH RISK: 130-159 MG/DL 110-129 MG/DL HIGH RISK: >160 MG/DL >130 MG/DL *CHILDREN AND ADOLESCENTS REPRESENTS INDIVIDUALA AGED 2-19 YEARS EXCLUSIVE. CHRONIC KIDNEY DISEASE STAGING PER NKF: MALE [...] mL/min Normal 80 and above >32 mL/min NormalNORMAL RANGES Age WBC RBC HGB HCT MCV PLT Adult M 4.1-10.9 4.20-6.30 12.0-18.0 37.0-51.0 80-97 140-440 Adult F 4.1-10.9 4.04-5.48 12.0-18.0 37.0-51.0 80-97 140-440 0- 1 Yr 5.0-20.0 3.9-5.9 15-18 MV: 44 MV: 91 MV: 277 2-9 Yr. 6.0-17.0 3.8-5.4 11-13 MV: 37 MV: 78 MV: 300 10 Yrs. 5.0-13.0 3.8-5.4 12-15 MV: 39 MV: 80 MV: 250 NOTE: * FOR ADULT BLACK MALES AND FEMALES, NORMAL WBC IS 2.9-7.7 K/ML * FOR ADULT BLACK MALES AND FEMALES, NORMAL RBC,HGB, AND HCT IS 5% LESS SOURCE FOR DATA: [facility] 1800 OPERATION MANUAL( AUTOMATED BLOOD COUNTS AND DIFF.) APPENDIX B-3 ID Date Data Source [id number] 09/24/2019 09:08:00 AM EDT [facility] ([facility] Name Value Range Interpretation Code Description Data Daly rce(s) Supporting Document(s) Glu 171 mg/dL 70-110 Above high normal [facility] ([facility] CLASSIFICATION CHOLESTEROL FO R ADULTS CHILDREN/ADOLESCENTS* DESIRABLE: <200 MG/DL <170 MG/DL BORDER-LINE HIGH RISK: 200-239 MG/DL 170-199 MG/DL HIGH RISK: >240 MG/DL >200 MG/DL CLASS. FOR PRIMARY LDL CHOL PREVENTION: LDL CHOL-CHILD/ADOLESCENTS* DESIRABLE: <130 MG/DL <110 MG/DL BORDERLINE-HIGH RISK: 130-159 MG/DL 110-129 MG/DL HIGH RISK: >160 MG/DL >130 MG/DL *CHILDREN AND ADOLESCENTS REPRESENTS INDIVIDUALA AGED 2-19 YEARS EXCLUSIVE. CHRONIC KIDNEY DISEASE STAGING PER NKF: MALE [...] mL/min Normal 80 and above >32 mL/min NormalNORMAL RANGES Age WBC RBC HGB HCT MCV PLT Adult M 4.1-10.9 4.20-6.30 12.0-18.0 37.0-51.0 80-97 140-440 Adult F 4.1-10.9 4.04-5.48 12.0-18.0 37.0-51.0 80-97 140-440 0- 1 Yr 5.0-20.0 3.9-5.9 15-18 MV: 44 MV: 91 MV: 277 2-9 Yr. 6.0-17.0 3.8-5.4 11-13 MV: 37 MV: 78 MV: 300 10 Yrs. 5.0-13.0 3.8-5.4 12-15 MV: 39 MV: 80 MV: 250 NOTE: * FOR ADULT BLACK MALES AND FEMALES, NORMAL WBC IS 2.9-7.7 K/ML * FOR ADULT BLACK MALES AND FEMALES, NORMAL RBC,HGB, AND HCT IS 5% LESS SOURCE FOR DATA: [facility] 1800 OPERATION MANUAL( AUTOMATED BLOOD COUNTS AND DIFF.) APPENDIX B-3 Creat 1.1 mg/dL 0.7-1.2 [facility] ([facility] CLASSIFICATION CHOLESTEROL FO R ADULTS CHILDREN/ADOLESCENTS* DESIRABLE: <200 MG/DL <170 MG/DL BORDER-LINE HIGH RISK: 200-239 MG/DL 170-199 MG/DL HIGH RISK: >240 MG/DL >200 MG/DL CLASS. FOR PRIMARY LDL CHOL PREVENTION: LDL CHOL-CHILD/ADOLESCENTS* DESIRABLE: <130 MG/DL <110 MG/DL BORDERLINE-HIGH RISK: 130-159 MG/DL 110-129 MG/DL HIGH RISK: >160 MG/DL >130 MG/DL *CHILDREN AND ADOLESCENTS REPRESENTS INDIVIDUALA AGED 2-19 YEARS EXCLUSIVE. CHRONIC KIDNEY DISEASE STAGING PER NKF: MALE [...] mL/min Normal 80 and above >32 mL/min NormalNORMAL RANGES Age WBC RBC HGB HCT MCV PLT Adult M 4.1-10.9 4.20-6.30 12.0-18.0 37.0-51.0 80-97 140-440 Adult F 4.1-10.9 4.04-5.48 12.0-18.0 37.0-51.0 80-97 140-440 0- 1 Yr 5.0-20.0 3.9-5.9 15-18 MV: 44 MV: 91 MV: 277 2-9 Yr. 6.0-17.0 3.8-5.4 11-13 MV: 37 MV: 78 MV: 300 10 Yrs. 5.0-13.0 3.8-5.4 12-15 MV: 39 MV: 80 MV: 250 NOTE: * FOR ADULT BLACK MALES AND FEMALES, NORMAL WBC IS 2.9-7.7 K/ML * FOR ADULT BLACK MALES AND FEMALES, NORMAL RBC,HGB, AND HCT IS 5% LESS SOURCE FOR DATA: [facility] 1800 OPERATION MANUAL( AUTOMATED BLOOD COUNTS AND DIFF.) APPENDIX B-3 BUN 19 mg/dL 8-23 [facility] CLASSIFICATION CHOLESTEROL FO R ADULTS CHILDREN/ADOLESCENTS* DESIRABLE: <200 MG/DL <170 MG/DL BORDER-LINE HIGH RISK: 200-239 MG/DL 170-199 MG/DL HIGH RISK: >240 MG/DL >200 MG/DL CLASS. FOR PRIMARY LDL CHOL PREVENTION: LDL CHOL-CHILD/ADOLESCENTS* DESIRABLE: <130 MG/DL <110 MG/DL BORDERLINE-HIGH RISK: 130-159 MG/DL 110-129 MG/DL HIGH RISK: >160 MG/DL >130 MG/DL *CHILDREN AND ADOLESCENTS REPRESENTS INDIVIDUALA AGED 2-19 YEARS EXCLUSIVE. CHRONIC KIDNEY DISEASE STAGING PER NKF: MALE [...] mL/min Normal 80 and above >32 mL/min NormalNORMAL RANGES Age WBC RBC HGB HCT MCV PLT Adult M 4.1-10.9 4.20-6.30 12.0-18.0 37.0-51.0 80-97 140-440 Adult F 4.1-10.9 4.04-5.48 12.0-18.0 37.0-51.0 80-97 140-440 0- 1 Yr 5.0-20.0 3.9-5.9 15-18 MV: 44 MV: 91 MV: 277 2-9 Yr. 6.0-17.0 3.8-5.4 11-13 MV: 37 MV: 78 MV: 300 10 Yrs. 5.0-13.0 3.8-5.4 12-15 MV: 39 MV: 80 MV: 250 NOTE: * FOR ADULT BLACK MALES AND FEMALES, NORMAL WBC IS 2.9-7.7 K/ML * FOR ADULT BLACK MALES AND FEMALES, NORMAL RBC,HGB, AND HCT IS 5% LESS SOURCE FOR DATA: [facility] 1800 OPERATION MANUAL( AUTOMATED BLOOD COUNTS AND DIFF.) APPENDIX B-3 BUN/Creatinine Ratio 17.2 Calc [facility] ([facility] CLASSIFICATION CHOLESTEROL FO R ADULTS CHILDREN/ADOLESCENTS* DESIRABLE: <200 MG/DL <170 MG/DL BORDER-LINE HIGH RISK: 200-239 MG/DL 170-199 MG/DL HIGH RISK: >240 MG/DL >200 MG/DL CLASS. FOR PRIMARY LDL CHOL PREVENTION: LDL CHOL-CHILD/ADOLESCENTS* DESIRABLE: <130 MG/DL <110 MG/DL BORDERLINE-HIGH RISK: 130-159 MG/DL 110-129 MG/DL HIGH RISK: >160 MG/DL >130 MG/DL *CHILDREN AND ADOLESCENTS REPRESENTS INDIVIDUALA AGED 2-19 YEARS EXCLUSIVE. CHRONIC KIDNEY DISEASE STAGING PER NKF: MALE [...] mL/min Normal 80 and above >32 mL/min NormalNORMAL RANGES Age WBC RBC HGB HCT MCV PLT Adult M 4.1-10.9 4.20-6.30 12.0-18.0 37.0-51.0 80-97 140-440 Adult F 4.1-10.9 4.04-5.48 12.0-18.0 37.0-51.0 80-97 140-440 0- 1 Yr 5.0-20.0 3.9-5.9 15-18 MV: 44 MV: 91 MV: 277 2-9 Yr. 6.0-17.0 3.8-5.4 11-13 MV: 37 MV: 78 MV: 300 10 Yrs. 5.0-13.0 3.8-5.4 12-15 MV: 39 MV: 80 MV: 250 NOTE: * FOR ADULT BLACK MALES AND FEMALES, NORMAL WBC IS 2.9-7.7 K/ML * FOR ADULT BLACK MALES AND FEMALES, NORMAL RBC,HGB, AND HCT IS 5% LESS SOURCE FOR DATA: [facility] 1800 OPERATION MANUAL( AUTOMATED BLOOD COUNTS AND DIFF.) APPENDIX B-3 K 4.0 mmol/L 3.5-5.1 [facility] ([facility] CLASSIFICATION CHOLESTEROL FO R ADULTS CHILDREN/ADOLESCENTS* DESIRABLE: <200 MG/DL <170 MG/DL BORDER-LINE HIGH RISK: 200-239 MG/DL 170-199 MG/DL HIGH RISK: >240 MG/DL >200 MG/DL CLASS. FOR PRIMARY LDL CHOL PREVENTION: LDL CHOL-CHILD/ADOLESCENTS* DESIRABLE: <130 MG/DL <110 MG/DL BORDERLINE-HIGH RISK: 130-159 MG/DL 110-129 MG/DL HIGH RISK: >160 MG/DL >130 MG/DL *CHILDREN AND ADOLESCENTS REPRESENTS INDIVIDUALA AGED 2-19 YEARS EXCLUSIVE. CHRONIC KIDNEY DISEASE STAGING PER NKF: MALE [...] mL/min Normal 80 and above >32 mL/min NormalNORMAL RANGES Age WBC RBC HGB HCT MCV PLT Adult M 4.1-10.9 4.20-6.30 12.0-18.0 37.0-51.0 80-97 140-440 Adult F 4.1-10.9 4.04-5.48 12.0-18.0 37.0-51.0 80-97 140-440 0- 1 Yr 5.0-20.0 3.9-5.9 15-18 MV: 44 MV: 91 MV: 277 2-9 Yr. 6.0-17.0 3.8-5.4 11-13 MV: 37 MV: 78 MV: 300 10 Yrs. 5.0-13.0 3.8-5.4 12-15 MV: 39 MV: 80 MV: 250 NOTE: * FOR ADULT BLACK MALES AND FEMALES, NORMAL WBC IS 2.9-7.7 K/ML * FOR ADULT BLACK MALES AND FEMALES, NORMAL RBC,HGB, AND HCT IS 5% LESS SOURCE FOR DATA: [facility] 1800 OPERATION MANUAL( AUTOMATED BLOOD COUNTS AND DIFF.) APPENDIX B-3 Na 139 mmol/L 136-[address] [facility] CLASSIFICATION CHOLESTEROL FO R ADULTS CHILDREN/ADOLESCENTS* DESIRABLE: <200 MG/DL <170 MG/DL BORDER-LINE HIGH RISK: 200-239 MG/DL 170-199 MG/DL HIGH RISK: >240 MG/DL >200 MG/DL CLASS. FOR PRIMARY LDL CHOL PREVENTION: LDL CHOL-CHILD/ADOLESCENTS* DESIRABLE: <130 MG/DL <110 MG/DL BORDERLINE-HIGH RISK: 130-159 MG/DL 110-129 MG/DL HIGH RISK: >160 MG/DL >130 MG/DL *CHILDREN AND ADOLESCENTS REPRESENTS INDIVIDUALA AGED 2-19 YEARS EXCLUSIVE. CHRONIC KIDNEY DISEASE STAGING PER NKF: MALE [...] mL/min Normal 80 and above >32 mL/min NormalNORMAL RANGES Age WBC RBC HGB HCT MCV PLT Adult M 4.1-10.9 4.20-6.30 12.0-18.0 37.0-51.0 80-97 140-440 Adult F 4.1-10.9 4.04-5.48 12.0-18.0 37.0-51.0 80-97 140-440 0- 1 Yr 5.0-20.0 3.9-5.9 15-18 MV: 44 MV: 91 MV: 277 2-9 Yr. 6.0-17.0 3.8-5.4 11-13 MV: 37 MV: 78 MV: 300 10 Yrs. 5.0-13.0 3.8-5.4 12-15 MV: 39 MV: 80 MV: 250 NOTE: * FOR ADULT BLACK MALES AND FEMALES, NORMAL WBC IS 2.9-7.7 K/ML * FOR ADULT BLACK MALES AND FEMALES, NORMAL RBC,HGB, AND HCT IS 5% LESS SOURCE FOR DATA: [facility] 1800 OPERATION MANUAL( AUTOMATED BLOOD COUNTS AND DIFF.) APPENDIX B-3 CL 101.1 mmol/L 98.0-107.0 [facility] ([facility] CLASSIFICATION CHOLESTEROL FO R ADULTS CHILDREN/ADOLESCENTS* DESIRABLE: <200 MG/DL <170 MG/DL BORDER-LINE HIGH RISK: 200-239 MG/DL 170-199 MG/DL HIGH RISK: >240 MG/DL >200 MG/DL CLASS. FOR PRIMARY LDL CHOL PREVENTION: LDL CHOL-CHILD/ADOLESCENTS* DESIRABLE: <130 MG/DL <110 MG/DL BORDERLINE-HIGH RISK: 130-159 MG/DL 110-129 MG/DL HIGH RISK: >160 MG/DL >130 MG/DL *CHILDREN AND ADOLESCENTS REPRESENTS INDIVIDUALA AGED 2-19 YEARS EXCLUSIVE. CHRONIC KIDNEY DISEASE STAGING PER NKF: MALE [...] mL/min Normal 80 and above >32 mL/min NormalNORMAL RANGES Age WBC RBC HGB HCT MCV PLT Adult M 4.1-10.9 4.20-6.30 12.0-18.0 37.0-51.0 80-97 140-440 Adult F 4.1-10.9 4.04-5.48 12.0-18.0 37.0-51.0 80-97 140-440 0- 1 Yr 5.0-20.0 3.9-5.9 15-18 MV: 44 MV: 91 MV: 277 2-9 Yr. 6.0-17.0 3.8-5.4 11-13 MV: 37 MV: 78 MV: 300 10 Yrs. 5.0-13.0 3.8-5.4 12-15 MV: 39 MV: 80 MV: 250 NOTE: * FOR ADULT BLACK MALES AND FEMALES, NORMAL WBC IS 2.9-7.7 K/ML * FOR ADULT BLACK MALES AND FEMALES, NORMAL RBC,HGB, AND HCT IS 5% LESS SOURCE FOR DATA: [facility] 1800 OPERATION MANUAL( AUTOMATED BLOOD COUNTS AND DIFF.) APPENDIX B-3 Co2 25.0 mmol/L 22.0-29.0 [facility] ([facility] CLASSIFICATION CHOLESTEROL FO R ADULTS CHILDREN/ADOLESCENTS* DESIRABLE: <200 MG/DL <170 MG/DL BORDER-LINE HIGH RISK: 200-239 MG/DL 170-199 MG/DL HIGH RISK: >240 MG/DL >200 MG/DL CLASS. FOR PRIMARY LDL CHOL PREVENTION: LDL CHOL-CHILD/ADOLESCENTS* DESIRABLE: <130 MG/DL <110 MG/DL BORDERLINE-HIGH RISK: 130-159 MG/DL 110-129 MG/DL HIGH RISK: >160 MG/DL >130 MG/DL *CHILDREN AND ADOLESCENTS REPRESENTS INDIVIDUALA AGED 2-19 YEARS EXCLUSIVE. CHRONIC KIDNEY DISEASE STAGING PER NKF: MALE [...] mL/min Normal 80 and above >32 mL/min NormalNORMAL RANGES Age WBC RBC HGB HCT MCV PLT Adult M 4.1-10.9 4.20-6.30 12.0-18.0 37.0-51.0 80-97 140-440 Adult F 4.1-10.9 4.04-5.48 12.0-18.0 37.0-51.0 80-97 140-440 0- 1 Yr 5.0-20.0 3.9-5.9 15-18 MV: 44 MV: 91 MV: 277 2-9 Yr. 6.0-17.0 3.8-5.4 11-13 MV: 37 MV: 78 MV: 300 10 Yrs. 5.0-13.0 3.8-5.4 12-15 MV: 39 MV: 80 MV: 250 NOTE: * FOR ADULT BLACK MALES AND FEMALES, NORMAL WBC IS 2.9-7.7 K/ML * FOR ADULT BLACK MALES AND FEMALES, NORMAL RBC,HGB, AND HCT IS 5% LESS SOURCE FOR DATA: [facility] 1800 OPERATION MANUAL( AUTOMATED BLOOD COUNTS AND DIFF.) APPENDIX B-3 CA 10.0 mg/dL 8.6-10.[address] [facility] CLASSIFICATION CHOLESTEROL FO R ADULTS CHILDREN/ADOLESCENTS* DESIRABLE: <200 MG/DL <170 MG/DL BORDER-LINE HIGH RISK: 200-239 MG/DL 170-199 MG/DL HIGH RISK: >240 MG/DL >200 MG/DL CLASS. FOR PRIMARY LDL CHOL PREVENTION: LDL CHOL-CHILD/ADOLESCENTS* DESIRABLE: <130 MG/DL <110 MG/DL BORDERLINE-HIGH RISK: 130-159 MG/DL 110-129 MG/DL HIGH RISK: >160 MG/DL >130 MG/DL *CHILDREN AND ADOLESCENTS REPRESENTS INDIVIDUALA AGED 2-19 YEARS EXCLUSIVE. CHRONIC KIDNEY DISEASE STAGING PER NKF: MALE [...] mL/min Normal 80 and above >32 mL/min NormalNORMAL RANGES Age WBC RBC HGB HCT MCV PLT Adult M 4.1-10.9 4.20-6.30 12.0-18.0 37.0-51.0 80-97 140-440 Adult F 4.1-10.9 4.04-5.48 12.0-18.0 37.0-51.0 80-97 140-440 0- 1 Yr 5.0-20.0 3.9-5.9 15-18 MV: 44 MV: 91 MV: 277 2-9 Yr. 6.0-17.0 3.8-5.4 11-13 MV: 37 MV: 78 MV: 300 10 Yrs. 5.0-13.0 3.8-5.4 12-15 MV: 39 MV: 80 MV: 250 NOTE: * FOR ADULT BLACK MALES AND FEMALES, NORMAL WBC IS 2.9-7.7 K/ML * FOR ADULT BLACK MALES AND FEMALES, NORMAL RBC,HGB, AND HCT IS 5% LESS SOURCE FOR DATA: [facility] 1800 OPERATION MANUAL( AUTOMATED BLOOD COUNTS AND DIFF.) APPENDIX B-3 TP 7.1 g/dL 6.6-8.7 [facility] CLASSIFICATION CHOLESTEROL FO R ADULTS CHILDREN/ADOLESCENTS* DESIRABLE: <200 MG/DL <170 MG/DL BORDER-LINE HIGH RISK: 200-239 MG/DL 170-199 MG/DL HIGH RISK: >240 MG/DL >200 MG/DL CLASS. FOR PRIMARY LDL CHOL PREVENTION: LDL CHOL-CHILD/ADOLESCENTS* DESIRABLE: <130 MG/DL <110 MG/DL BORDERLINE-HIGH RISK: 130-159 MG/DL 110-129 MG/DL HIGH RISK: >160 MG/DL >130 MG/DL *CHILDREN AND ADOLESCENTS REPRESENTS INDIVIDUALA AGED 2-19 YEARS EXCLUSIVE. CHRONIC KIDNEY DISEASE STAGING PER NKF: MALE [...] mL/min Normal 80 and above >32 mL/min NormalNORMAL RANGES Age WBC RBC HGB HCT MCV PLT Adult M 4.1-10.9 4.20-6.30 12.0-18.0 37.0-51.0 80-97 140-440 Adult F 4.1-10.9 4.04-5.48 12.0-18.0 37.0-51.0 80-97 140-440 0- 1 Yr 5.0-20.0 3.9-5.9 15-18 MV: 44 MV: 91 MV: 277 2-9 Yr. 6.0-17.0 3.8-5.4 11-13 MV: 37 MV: 78 MV: 300 10 Yrs. 5.0-13.0 3.8-5.4 12-15 MV: 39 MV: 80 MV: 250 NOTE: * FOR ADULT BLACK MALES AND FEMALES, NORMAL WBC IS 2.9-7.7 K/ML * FOR ADULT BLACK MALES AND FEMALES, NORMAL RBC,HGB, AND HCT IS 5% LESS SOURCE FOR DATA: [facility] 1800 OPERATION MANUAL( AUTOMATED BLOOD COUNTS AND DIFF.) APPENDIX B-3 Alb 4.7 g/dL 3.5-5.2 [facility] ([facility] CLASSIFICATION CHOLESTEROL FO R ADULTS CHILDREN/ADOLESCENTS* DESIRABLE: <200 MG/DL <170 MG/DL BORDER-LINE HIGH RISK: 200-239 MG/DL 170-199 MG/DL HIGH RISK: >240 MG/DL >200 MG/DL CLASS. FOR PRIMARY LDL CHOL PREVENTION: LDL CHOL-CHILD/ADOLESCENTS* DESIRABLE: <130 MG/DL <110 MG/DL BORDERLINE-HIGH RISK: 130-159 MG/DL 110-129 MG/DL HIGH RISK: >160 MG/DL >130 MG/DL *CHILDREN AND ADOLESCENTS REPRESENTS INDIVIDUALA AGED 2-19 YEARS EXCLUSIVE. CHRONIC KIDNEY DISEASE STAGING PER NKF: MALE [...] mL/min Normal 80 and above >32 mL/min NormalNORMAL RANGES Age WBC RBC HGB HCT MCV PLT Adult M 4.1-10.9 4.20-6.30 12.0-18.0 37.0-51.0 80-97 140-440 Adult F 4.1-10.9 4.04-5.48 12.0-18.0 37.0-51.0 80-97 140-440 0- 1 Yr 5.0-20.0 3.9-5.9 15-18 MV: 44 MV: 91 MV: 277 2-9 Yr. 6.0-17.0 3.8-5.4 11-13 MV: 37 MV: 78 MV: 300 10 Yrs. 5.0-13.0 3.8-5.4 12-15 MV: 39 MV: 80 MV: 250 NOTE: * FOR ADULT BLACK MALES AND FEMALES, NORMAL WBC IS 2.9-7.7 K/ML * FOR ADULT BLACK MALES AND FEMALES, NORMAL RBC,HGB, AND HCT IS 5% LESS SOURCE FOR DATA: [employer] [facility] 1800 OPERATION MANUAL( AUTOMATED BLOOD COUNTS AND DIFF.) APPENDIX B-3 A/G Ratio 2.0 Calc [facility] ([facility] CLASSIFICATION CHOLESTEROL FO R ADULTS CHILDREN/ADOLESCENTS* DESIRABLE: <200 MG/DL <170 MG/DL BORDER-LINE HIGH RISK: 200-239 MG/DL 170-199 MG/DL HIGH RISK: >240 MG/DL >200 MG/DL CLASS. FOR PRIMARY LDL CHOL PREVENTION: LDL CHOL-CHILD/ADOLESCENTS* DESIRABLE: <130 MG/DL <110 MG/DL BORDERLINE-HIGH RISK: 130-159 MG/DL 110-129 MG/DL HIGH RISK: >160 MG/DL >130 MG/DL *CHILDREN AND ADOLESCENTS REPRESENTS INDIVIDUALA AGED 2-19 YEARS EXCLUSIVE. CHRONIC KIDNEY DISEASE STAGING PER NKF: MALE [...] mL/min Normal 80 and above >32 mL/min NormalNORMAL RANGES Age WBC RBC HGB HCT MCV PLT Adult M 4.1-10.9 4.20-6.30 12.0-18.0 37.0-51.0 80-97 140-440 Adult F 4.1-10.9 4.04-5.48 12.0-18.0 37.0-51.0 80-97 140-440 0- 1 Yr 5.0-20.0 3.9-5.9 15-18 MV: 44 MV: 91 MV: 277 2-9 Yr. 6.0-17.0 3.8-5.4 11-13 MV: 37 MV: 78 MV: 300 10 Yrs. 5.0-13.0 3.8-5.4 12-15 MV: 39 MV: 80 MV: 250 NOTE: * FOR ADULT BLACK MALES AND FEMALES, NORMAL WBC IS 2.9-7.7 K/ML * FOR ADULT BLACK MALES AND FEMALES, NORMAL RBC,HGB, AND HCT IS 5% LESS SOURCE FOR DATA: [facility] 1800 OPERATION MANUAL( AUTOMATED BLOOD COUNTS AND DIFF.) APPENDIX B-3 Alp 75.3 U/L 40-129 [facility] CLASSIFICATION CHOLESTEROL FO R ADULTS CHILDREN/ADOLESCENTS* DESIRABLE: <200 MG/DL <170 MG/DL BORDER-LINE HIGH RISK: 200-239 MG/DL 170-199 MG/DL HIGH RISK: >240 MG/DL >200 MG/DL CLASS. FOR PRIMARY LDL CHOL PREVENTION: LDL CHOL-CHILD/ADOLESCENTS* DESIRABLE: <130 MG/DL <110 MG/DL BORDERLINE-HIGH RISK: 130-159 MG/DL 110-129 MG/DL HIGH RISK: >160 MG/DL >130 MG/DL *CHILDREN AND ADOLESCENTS REPRESENTS INDIVIDUALA AGED 2-19 YEARS EXCLUSIVE. CHRONIC KIDNEY DISEASE STAGING PER NKF: MALE [...] mL/min Normal 80 and above >32 mL/min NormalNORMAL RANGES Age WBC RBC HGB HCT MCV PLT Adult M 4.1-10.9 4.20-6.30 12.0-18.0 37.0-51.0 80-97 140-440 Adult F 4.1-10.9 4.04-5.48 12.0-18.0 37.0-51.0 80-97 140-440 0- 1 Yr 5.0-20.0 3.9-5.9 15-18 MV: 44 MV: 91 MV: 277 2-9 Yr. 6.0-17.0 3.8-5.4 11-13 MV: 37 MV: 78 MV: 300 10 Yrs. 5.0-13.0 3.8-5.4 12-15 MV: 39 MV: 80 MV: 250 NOTE: * FOR ADULT BLACK MALES AND FEMALES, NORMAL WBC IS 2.9-7.7 K/ML * FOR ADULT BLACK MALES AND FEMALES, NORMAL RBC,HGB, AND HCT IS 5% LESS SOURCE FOR DATA: [employer] [facility] [employer] 1800 OPERATION MANUAL( AUTOMATED BLOOD COUNTS AND DIFF.) APPENDIX B-3 Globulin 2.4 Calc [facility] CLASSIFICATION CHOLESTEROL FO R ADULTS CHILDREN/ADOLESCENTS* DESIRABLE: <200 MG/DL <170 MG/DL BORDER-LINE HIGH RISK: 200-239 MG/DL 170-199 MG/DL HIGH RISK: >240 MG/DL >200 MG/DL CLASS. FOR PRIMARY LDL CHOL PREVENTION: LDL CHOL-CHILD/ADOLESCENTS* DESIRABLE: <130 MG/DL <110 MG/DL BORDERLINE-HIGH RISK: 130-159 MG/DL 110-129 MG/DL HIGH RISK: >160 MG/DL >130 MG/DL *CHILDREN AND ADOLESCENTS REPRESENTS INDIVIDUALA AGED 2-19 YEARS EXCLUSIVE. CHRONIC KIDNEY DISEASE STAGING PER NKF: MALE [...] mL/min Normal 80 and above >32 mL/min NormalNORMAL RANGES Age WBC RBC HGB HCT MCV PLT Adult M 4.1-10.9 4.20-6.30 12.0-18.0 37.0-51.0 80-97 140-440 Adult F 4.1-10.9 4.04-5.48 12.0-18.0 37.0-51.0 80-97 140-440 0- 1 Yr 5.0-20.0 3.9-5.9 15-18 MV: 44 MV: 91 MV: 277 2-9 Yr. 6.0-17.0 3.8-5.4 11-13 MV: 37 MV: 78 MV: 300 10 Yrs. 5.0-13.0 3.8-5.4 12-15 MV: 39 MV: 80 MV: 250 NOTE: * FOR ADULT BLACK MALES AND FEMALES, NORMAL WBC IS 2.9-7.7 K/ML * FOR ADULT BLACK MALES AND FEMALES, NORMAL RBC,HGB, AND HCT IS 5% LESS SOURCE FOR DATA: [facility] 1800 OPERATION MANUAL( AUTOMATED BLOOD COUNTS AND DIFF.) APPENDIX B-3 Ast (Sgot) 36 U/L 0-40 [facility] CLASSIFICATION CHOLESTEROL FO R ADULTS CHILDREN/ADOLESCENTS* DESIRABLE: <200 MG/DL <170 MG/DL BORDER-LINE HIGH RISK: 200-239 MG/DL 170-199 MG/DL HIGH RISK: >240 MG/DL >200 MG/DL CLASS. FOR PRIMARY LDL CHOL PREVENTION: LDL CHOL-CHILD/ADOLESCENTS* DESIRABLE: <130 MG/DL <110 MG/DL BORDERLINE-HIGH RISK: 130-159 MG/DL 110-129 MG/DL HIGH RISK: >160 MG/DL >130 MG/DL *CHILDREN AND ADOLESCENTS REPRESENTS INDIVIDUALA AGED 2-19 YEARS EXCLUSIVE. CHRONIC KIDNEY DISEASE STAGING PER NKF: MALE [...] mL/min Normal 80 and above >32 mL/min NormalNORMAL RANGES Age WBC RBC HGB HCT MCV PLT Adult M 4.1-10.9 4.20-6.30 12.0-18.0 37.0-51.0 80-97 140-440 Adult F 4.1-10.9 4.04-5.48 12.0-18.0 37.0-51.0 80-97 140-440 0- 1 Yr 5.0-20.0 3.9-5.9 15-18 MV: 44 MV: 91 MV: 277 2-9 Yr. 6.0-17.0 3.8-5.4 11-13 MV: 37 MV: 78 MV: 300 10 Yrs. 5.0-13.0 3.8-5.4 12-15 MV: 39 MV: 80 MV: 250 NOTE: * FOR ADULT BLACK MALES AND FEMALES, NORMAL WBC IS 2.9-7.7 K/ML * FOR ADULT BLACK MALES AND FEMALES, NORMAL RBC,HGB, AND HCT IS 5% LESS SOURCE FOR DATA: [facility] 1800 OPERATION MANUAL( AUTOMATED BLOOD COUNTS AND DIFF.) APPENDIX B-3 Osmolality-Calculated 284.7 Calc [facility] ([facility] CLASSIFICATION CHOLESTEROL FO R ADULTS CHILDREN/ADOLESCENTS* DESIRABLE: <200 MG/DL <170 MG/DL BORDER-LINE HIGH RISK: 200-239 MG/DL 170-199 MG/DL HIGH RISK: >240 MG/DL >200 MG/DL CLASS. FOR PRIMARY LDL CHOL PREVENTION: LDL CHOL-CHILD/ADOLESCENTS* DESIRABLE: <130 MG/DL <110 MG/DL BORDERLINE-HIGH RISK: 130-159 MG/DL 110-129 MG/DL HIGH RISK: >160 MG/DL >130 MG/DL *CHILDREN AND ADOLESCENTS REPRESENTS INDIVIDUALA AGED 2-19 YEARS EXCLUSIVE. CHRONIC KIDNEY DISEASE STAGING PER NKF: MALE [...] mL/min Normal 80 and above >32 mL/min NormalNORMAL RANGES Age WBC RBC HGB HCT MCV PLT Adult M 4.1-10.9 4.20-6.30 12.0-18.0 37.0-51.0 80-97 140-440 Adult F 4.1-10.9 4.04-5.48 12.0-18.0 37.0-51.0 80-97 140-440 0- 1 Yr 5.0-20.0 3.9-5.9 15-18 MV: 44 MV: 91 MV: 277 2-9 Yr. 6.0-17.0 3.8-5.4 11-13 MV: 37 MV: 78 MV: 300 10 Yrs. 5.0-13.0 3.8-5.4 12-15 MV: 39 MV: 80 MV: 250 NOTE: * FOR ADULT BLACK MALES AND FEMALES, NORMAL WBC IS 2.9-7.7 K/ML * FOR ADULT BLACK MALES AND FEMALES, NORMAL RBC,HGB, AND HCT IS 5% LESS SOURCE FOR DATA: [facility] 1800 OPERATION MANUAL( AUTOMATED BLOOD COUNTS AND DIFF.) APPENDIX B-3 Tbili 0.96 mg/dL 0.0-1.[address] [facility] CLASSIFICATION CHOLESTEROL FO R ADULTS CHILDREN/ADOLESCENTS* DESIRABLE: <200 MG/DL <170 MG/DL BORDER-LINE HIGH RISK: 200-239 MG/DL 170-199 MG/DL HIGH RISK: >240 MG/DL >200 MG/DL CLASS. FOR PRIMARY LDL CHOL PREVENTION: LDL CHOL-CHILD/ADOLESCENTS* DESIRABLE: <130 MG/DL <110 MG/DL BORDERLINE-HIGH RISK: 130-159 MG/DL 110-129 MG/DL HIGH RISK: >160 MG/DL >130 MG/DL *CHILDREN AND ADOLESCENTS REPRESENTS INDIVIDUALA AGED 2-19 YEARS EXCLUSIVE. CHRONIC KIDNEY DISEASE STAGING PER NKF: MALE [...] mL/min Normal 80 and above >32 mL/min NormalNORMAL RANGES Age WBC RBC HGB HCT MCV PLT Adult M 4.1-10.9 4.20-6.30 12.0-18.0 37.0-51.0 80-97 140-440 Adult F 4.1-10.9 4.04-5.48 12.0-18.0 37.0-51.0 80-97 140-440 0- 1 Yr 5.0-20.0 3.9-5.9 15-18 MV: 44 MV: 91 MV: 277 2-9 Yr. 6.0-17.0 3.8-5.4 11-13 MV: 37 MV: 78 MV: 300 10 Yrs. 5.0-13.0 3.8-5.4 12-15 MV: 39 MV: 80 MV: 250 NOTE: * FOR ADULT BLACK MALES AND FEMALES, NORMAL WBC IS 2.9-7.7 K/ML * FOR ADULT BLACK MALES AND FEMALES, NORMAL RBC,HGB, AND HCT IS 5% LESS SOURCE FOR DATA: [facility] 1800 OPERATION MANUAL( AUTOMATED BLOOD COUNTS AND DIFF.) APPENDIX B-3 Alt (SGPT) 29 U/L 0-41 [facility] ([facility] CLASSIFICATION CHOLESTEROL FO R ADULTS CHILDREN/ADOLESCENTS* DESIRABLE: <200 MG/DL <170 MG/DL BORDER-LINE HIGH RISK: 200-239 MG/DL 170-199 MG/DL HIGH RISK: >240 MG/DL >200 MG/DL CLASS. FOR PRIMARY LDL CHOL PREVENTION: LDL CHOL-CHILD/ADOLESCENTS* DESIRABLE: <130 MG/DL <110 MG/DL BORDERLINE-HIGH RISK: 130-159 MG/DL 110-129 MG/DL HIGH RISK: >160 MG/DL >130 MG/DL *CHILDREN AND ADOLESCENTS REPRESENTS INDIVIDUALA AGED 2-19 YEARS EXCLUSIVE. CHRONIC KIDNEY DISEASE STAGING PER NKF: MALE [...] mL/min Normal 80 and above >32 mL/min NormalNORMAL RANGES Age WBC RBC HGB HCT MCV PLT Adult M 4.1-10.9 4.20-6.30 12.0-18.0 37.0-51.0 80-97 140-440 Adult F 4.1-10.9 4.04-5.48 12.0-18.0 37.0-51.0 80-97 140-440 0- 1 Yr 5.0-20.0 3.9-5.9 15-18 MV: 44 MV: 91 MV: 277 2-9 Yr. 6.0-17.0 3.8-5.4 11-13 MV: 37 MV: 78 MV: 300 10 Yrs. 5.0-13.0 3.8-5.4 12-15 MV: 39 MV: 80 MV: 250 NOTE: * FOR ADULT BLACK MALES AND FEMALES, NORMAL WBC IS 2.9-7.7 K/ML * FOR ADULT BLACK MALES AND FEMALES, NORMAL RBC,HGB, AND HCT IS 5% LESS SOURCE FOR DATA: [facility] 1800 OPERATION MANUAL( AUTOMATED BLOOD COUNTS AND DIFF.) APPENDIX B-3 Anion Gap 17 mmol/L [facility] ([facility] CLASSIFICATION CHOLESTEROL FO R ADULTS CHILDREN/ADOLESCENTS* DESIRABLE: <200 MG/DL <170 MG/DL BORDER-LINE HIGH RISK: 200-239 MG/DL 170-199 MG/DL HIGH RISK: >240 MG/DL >200 MG/DL CLASS. FOR PRIMARY LDL CHOL PREVENTION: LDL CHOL-CHILD/ADOLESCENTS* DESIRABLE: <130 MG/DL <110 MG/DL BORDERLINE-HIGH RISK: 130-159 MG/DL 110-129 MG/DL HIGH RISK: >160 MG/DL >130 MG/DL *CHILDREN AND ADOLESCENTS REPRESENTS INDIVIDUALA AGED 2-19 YEARS EXCLUSIVE. CHRONIC KIDNEY DISEASE STAGING PER NKF: MALE [...] mL/min Normal 80 and above >32 mL/min NormalNORMAL RANGES Age WBC RBC HGB HCT MCV PLT Adult M 4.1-10.9 4.20-6.30 12.0-18.0 37.0-51.0 80-97 140-440 Adult F 4.1-10.9 4.04-5.48 12.0-18.0 37.0-51.0 80-97 140-440 0- 1 Yr 5.0-20.0 3.9-5.9 15-18 MV: 44 MV: 91 MV: 277 2-9 Yr. 6.0-17.0 3.8-5.4 11-13 MV: 37 MV: 78 MV: 300 10 Yrs. 5.0-13.0 3.8-5.4 12-15 MV: 39 MV: 80 MV: 250 NOTE: * FOR ADULT BLACK MALES AND FEMALES, NORMAL WBC IS 2.9-7.7 K/ML * FOR ADULT BLACK MALES AND FEMALES, NORMAL RBC,HGB, AND HCT IS 5% LESS SOURCE FOR DATA: [facility] 1800 OPERATION MANUAL( AUTOMATED BLOOD COUNTS AND DIFF.) APPENDIX B-3 eGFR 80 # [facility] ( [facility] CLASSIFICATION CHOLESTEROL FO R ADULTS CHILDREN/ADOLESCENTS* DESIRABLE: <200 MG/DL <170 MG/DL BORDER-LINE HIGH RISK: 200-239 MG/DL 170-199 MG/DL HIGH RISK: >240 MG/DL >200 MG/DL CLASS. FOR PRIMARY LDL CHOL PREVENTION: LDL CHOL-CHILD/ADOLESCENTS* DESIRABLE: <130 MG/DL <110 MG/DL BORDERLINE-HIGH RISK: 130-159 MG/DL 110-129 MG/DL HIGH RISK: >160 MG/DL >130 MG/DL *CHILDREN AND ADOLESCENTS REPRESENTS INDIVIDUALA AGED 2-19 YEARS EXCLUSIVE. CHRONIC KIDNEY DISEASE STAGING PER NKF: MALE [...] mL/min Normal 80 and above >32 mL/min NormalNORMAL RANGES Age WBC RBC HGB HCT MCV PLT Adult M 4.1-10.9 4.20-6.30 12.0-18.0 37.0-51.0 80-97 140-440 Adult F 4.1-10.9 4.04-5.48 12.0-18.0 37.0-51.0 80-97 140-440 0- 1 Yr 5.0-20.0 3.9-5.9 15-18 MV: 44 MV: 91 MV: 277 2-9 Yr. 6.0-17.0 3.8-5.4 11-13 MV: 37 MV: 78 MV: 300 10 Yrs. 5.0-13.0 3.8-5.4 12-15 MV: 39 MV: 80 MV: 250 NOTE: * FOR ADULT BLACK MALES AND FEMALES, NORMAL WBC IS 2.9-7.7 K/ML * FOR ADULT BLACK MALES AND FEMALES, NORMAL RBC,HGB, AND HCT IS 5% LESS SOURCE FOR DATA: [facility] 1800 OPERATION MANUAL( AUTOMATED BLOOD COUNTS AND DIFF.) APPENDIX B-3 eGFR Non-Afr. [place] 69 # [facility] ([facility] CLASSIFICATION CHOLESTEROL FO R ADULTS CHILDREN/ADOLESCENTS* DESIRABLE: <200 MG/DL <170 MG/DL BORDER-LINE HIGH RISK: 200-239 MG/DL 170-199 MG/DL HIGH RISK: >240 MG/DL >200 MG/DL CLASS. FOR PRIMARY LDL CHOL PREVENTION: LDL CHOL-CHILD/ADOLESCENTS* DESIRABLE: <130 MG/DL <110 MG/DL BORDERLINE-HIGH RISK: 130-159 MG/DL 110-129 MG/DL HIGH RISK: >160 MG/DL >130 MG/DL *CHILDREN AND ADOLESCENTS REPRESENTS INDIVIDUALA AGED 2-19 YEARS EXCLUSIVE. CHRONIC KIDNEY DISEASE STAGING PER NKF: MALE [...] mL/min Normal 80 and above >32 mL/min NormalNORMAL RANGES Age WBC RBC HGB HCT MCV PLT Adult M 4.1-10.9 4.20-6.30 12.0-18.0 37.0-51.0 80-97 140-440 Adult F 4.1-10.9 4.04-5.48 12.0-18.0 37.0-51.0 80-97 140-440 0- 1 Yr 5.0-20.0 3.9-5.9 15-18 MV: 44 MV: 91 MV: 277 2-9 Yr. 6.0-17.0 3.8-5.4 11-13 MV: 37 MV: 78 MV: 300 10 Yrs. 5.0-13.0 3.8-5.4 12-15 MV: 39 MV: 80 MV: 250 NOTE: * FOR ADULT BLACK MALES AND FEMALES, NORMAL WBC IS 2.9-7.7 K/ML * FOR ADULT BLACK MALES AND FEMALES, NORMAL RBC,HGB, AND HCT IS 5% LESS SOURCE FOR DATA: [facility] 1800 OPERATION MANUAL( AUTOMATED BLOOD COUNTS AND DIFF.) APPENDIX B-3 ID Date Data Source [id number] 09/24/2019 09:08:00 AM EDT [facility] ([facility] Name Value Range Interpretation Code Description Data Daly rce(s) Supporting Document(s) WBC 5.1 10E3/uL 4.1-10.9 [facility] ([facility] CLASSIFICATION CHOLESTEROL FO R ADULTS CHILDREN/ADOLESCENTS* DESIRABLE: <200 MG/DL <170 MG/DL BORDER-LINE HIGH RISK: 200-239 MG/DL 170-199 MG/DL HIGH RISK: >240 MG/DL >200 MG/DL CLASS. FOR PRIMARY LDL CHOL PREVENTION: LDL CHOL-CHILD/ADOLESCENTS* DESIRABLE: <130 MG/DL <110 MG/DL BORDERLINE-HIGH RISK: 130-159 MG/DL 110-129 MG/DL HIGH RISK: >160 MG/DL >130 MG/DL *CHILDREN AND ADOLESCENTS REPRESENTS INDIVIDUALA AGED 2-19 YEARS EXCLUSIVE. CHRONIC KIDNEY DISEASE STAGING PER NKF: MALE [...] mL/min Normal 80 and above >32 mL/min NormalNORMAL RANGES Age WBC RBC HGB HCT MCV PLT Adult M 4.1-10.9 4.20-6.30 12.0-18.0 37.0-51.0 80-97 140-440 Adult F 4.1-10.9 4.04-5.48 12.0-18.0 37.0-51.0 80-97 140-440 0- 1 Yr 5.0-20.0 3.9-5.9 15-18 MV: 44 MV: 91 MV: 277 2-9 Yr. 6.0-17.0 3.8-5.4 11-13 MV: 37 MV: 78 MV: 300 10 Yrs. 5.0-13.0 3.8-5.4 12-15 MV: 39 MV: 80 MV: 250 NOTE: * FOR ADULT BLACK MALES AND FEMALES, NORMAL WBC IS 2.9-7.7 K/ML * FOR ADULT BLACK MALES AND FEMALES, NORMAL RBC,HGB, AND HCT IS 5% LESS SOURCE FOR DATA: [facility] 1800 OPERATION MANUAL( AUTOMATED BLOOD COUNTS AND DIFF.) APPENDIX B-3 HGB 17.3 g/dL 12.0-18.0 [facility] ([facility] CLASSIFICATION CHOLESTEROL FO R ADULTS CHILDREN/ADOLESCENTS* DESIRABLE: <200 MG/DL <170 MG/DL BORDER-LINE HIGH RISK: 200-239 MG/DL 170-199 MG/DL HIGH RISK: >240 MG/DL >200 MG/DL CLASS. FOR PRIMARY LDL CHOL PREVENTION: LDL CHOL-CHILD/ADOLESCENTS* DESIRABLE: <130 MG/DL <110 MG/DL BORDERLINE-HIGH RISK: 130-159 MG/DL 110-129 MG/DL HIGH RISK: >160 MG/DL >130 MG/DL *CHILDREN AND ADOLESCENTS REPRESENTS INDIVIDUALA AGED 2-19 YEARS EXCLUSIVE. CHRONIC KIDNEY DISEASE STAGING PER NKF: MALE [...] mL/min Normal 80 and above >32 mL/min NormalNORMAL RANGES Age WBC RBC HGB HCT MCV PLT Adult M 4.1-10.9 4.20-6.30 12.0-18.0 37.0-51.0 80-97 140-440 Adult F 4.1-10.9 4.04-5.48 12.0-18.0 37.0-51.0 80-97 140-440 0- 1 Yr 5.0-20.0 3.9-5.9 15-18 MV: 44 MV: 91 MV: 277 2-9 Yr. 6.0-17.0 3.8-5.4 11-13 MV: 37 MV: 78 MV: 300 10 Yrs. 5.0-13.0 3.8-5.4 12-15 MV: 39 MV: 80 MV: 250 NOTE: * FOR ADULT BLACK MALES AND FEMALES, NORMAL WBC IS 2.9-7.7 K/ML * FOR ADULT BLACK MALES AND FEMALES, NORMAL RBC,HGB, AND HCT IS 5% LESS SOURCE FOR DATA: [facility] 1800 OPERATION MANUAL( AUTOMATED BLOOD COUNTS AND DIFF.) APPENDIX B-3 RBC 5.41 10E6/uL 4.20-6.30 [facility] ([facility] CLASSIFICATION CHOLESTEROL FO R ADULTS CHILDREN/ADOLESCENTS* DESIRABLE: <200 MG/DL <170 MG/DL BORDER-LINE HIGH RISK: 200-239 MG/DL 170-199 MG/DL HIGH RISK: >240 MG/DL >200 MG/DL CLASS. FOR PRIMARY LDL CHOL PREVENTION: LDL CHOL-CHILD/ADOLESCENTS* DESIRABLE: <130 MG/DL <110 MG/DL BORDERLINE-HIGH RISK: 130-159 MG/DL 110-129 MG/DL HIGH RISK: >160 MG/DL >130 MG/DL *CHILDREN AND ADOLESCENTS REPRESENTS INDIVIDUALA AGED 2-19 YEARS EXCLUSIVE. CHRONIC KIDNEY DISEASE STAGING PER NKF: MALE [...] mL/min Normal 80 and above >32 mL/min NormalNORMAL RANGES Age WBC RBC HGB HCT MCV PLT Adult M 4.1-10.9 4.20-6.30 12.0-18.0 37.0-51.0 80-97 140-440 Adult F 4.1-10.9 4.04-5.48 12.0-18.0 37.0-51.0 80-97 140-440 0- 1 Yr 5.0-20.0 3.9-5.9 15-18 MV: 44 MV: 91 MV: 277 2-9 Yr. 6.0-17.0 3.8-5.4 11-13 MV: 37 MV: 78 MV: 300 10 Yrs. 5.0-13.0 3.8-5.4 12-15 MV: 39 MV: 80 MV: 250 NOTE: * FOR ADULT BLACK MALES AND FEMALES, NORMAL WBC IS 2.9-7.7 K/ML * FOR ADULT BLACK MALES AND FEMALES, NORMAL RBC,HGB, AND HCT IS 5% LESS SOURCE FOR DATA: [facility] 1800 OPERATION MANUAL( AUTOMATED BLOOD COUNTS AND DIFF.) APPENDIX B-3 HCT 49.0 % 37.0-51.0 [facility] ([facility] CLASSIFICATION CHOLESTEROL FO R ADULTS CHILDREN/ADOLESCENTS* DESIRABLE: <200 MG/DL <170 MG/DL BORDER-LINE HIGH RISK: 200-239 MG/DL 170-199 MG/DL HIGH RISK: >240 MG/DL >200 MG/DL CLASS. FOR PRIMARY LDL CHOL PREVENTION: LDL CHOL-CHILD/ADOLESCENTS* DESIRABLE: <130 MG/DL <110 MG/DL BORDERLINE-HIGH RISK: 130-159 MG/DL 110-129 MG/DL HIGH RISK: >160 MG/DL >130 MG/DL *CHILDREN AND ADOLESCENTS REPRESENTS INDIVIDUALA AGED 2-19 YEARS EXCLUSIVE. CHRONIC KIDNEY DISEASE STAGING PER NKF: MALE [...] mL/min Normal 80 and above >32 mL/min NormalNORMAL RANGES Age WBC RBC HGB HCT MCV PLT Adult M 4.1-10.9 4.20-6.30 12.0-18.0 37.0-51.0 80-97 140-440 Adult F 4.1-10.9 4.04-5.48 12.0-18.0 37.0-51.0 80-97 140-440 0- 1 Yr 5.0-20.0 3.9-5.9 15-18 MV: 44 MV: 91 MV: 277 2-9 Yr. 6.0-17.0 3.8-5.4 11-13 MV: 37 MV: 78 MV: 300 10 Yrs. 5.0-13.0 3.8-5.4 12-15 MV: 39 MV: 80 MV: 250 NOTE: * FOR ADULT BLACK MALES AND FEMALES, NORMAL WBC IS 2.9-7.7 K/ML * FOR ADULT BLACK MALES AND FEMALES, NORMAL RBC,HGB, AND HCT IS 5% LESS SOURCE FOR DATA: [facility] 1800 OPERATION MANUAL( AUTOMATED BLOOD COUNTS AND DIFF.) APPENDIX B-3 MCV 90.6 fL 80.0-97.0 [facility] ([facility] CLASSIFICATION CHOLESTEROL FO R ADULTS CHILDREN/ADOLESCENTS* DESIRABLE: <200 MG/DL <170 MG/DL BORDER-LINE HIGH RISK: 200-239 MG/DL 170-199 MG/DL HIGH RISK: >240 MG/DL >200 MG/DL CLASS. FOR PRIMARY LDL CHOL PREVENTION: LDL CHOL-CHILD/ADOLESCENTS* DESIRABLE: <130 MG/DL <110 MG/DL BORDERLINE-HIGH RISK: 130-159 MG/DL 110-129 MG/DL HIGH RISK: >160 MG/DL >130 MG/DL *CHILDREN AND ADOLESCENTS REPRESENTS INDIVIDUALA AGED 2-19 YEARS EXCLUSIVE. CHRONIC KIDNEY DISEASE STAGING PER NKF: MALE [...] mL/min Normal 80 and above >32 mL/min NormalNORMAL RANGES Age WBC RBC HGB HCT MCV PLT Adult M 4.1-10.9 4.20-6.30 12.0-18.0 37.0-51.0 80-97 140-440 Adult F 4.1-10.9 4.04-5.48 12.0-18.0 37.0-51.0 80-97 140-440 0- 1 Yr 5.0-20.0 3.9-5.9 15-18 MV: 44 MV: 91 MV: 277 2-9 Yr. 6.0-17.0 3.8-5.4 11-13 MV: 37 MV: 78 MV: 300 10 Yrs. 5.0-13.0 3.8-5.4 12-15 MV: 39 MV: 80 MV: 250 NOTE: * FOR ADULT BLACK MALES AND FEMALES, NORMAL WBC IS 2.9-7.7 K/ML * FOR ADULT BLACK MALES AND FEMALES, NORMAL RBC,HGB, AND HCT IS 5% LESS SOURCE FOR DATA: [facility] 1800 OPERATION MANUAL( AUTOMATED BLOOD COUNTS AND DIFF.) APPENDIX B-3 MCH 32.0 pg 26.0-32.0 [facility] ([facility] CLASSIFICATION CHOLESTEROL FO R ADULTS CHILDREN/ADOLESCENTS* DESIRABLE: <200 MG/DL <170 MG/DL BORDER-LINE HIGH RISK: 200-239 MG/DL 170-199 MG/DL HIGH RISK: >240 MG/DL >200 MG/DL CLASS. FOR PRIMARY LDL CHOL PREVENTION: LDL CHOL-CHILD/ADOLESCENTS* DESIRABLE: <130 MG/DL <110 MG/DL BORDERLINE-HIGH RISK: 130-159 MG/DL 110-129 MG/DL HIGH RISK: >160 MG/DL >130 MG/DL *CHILDREN AND ADOLESCENTS REPRESENTS INDIVIDUALA AGED 2-19 YEARS EXCLUSIVE. CHRONIC KIDNEY DISEASE STAGING PER NKF: MALE [...] mL/min Normal 80 and above >32 mL/min NormalNORMAL RANGES Age WBC RBC HGB HCT MCV PLT Adult M 4.1-10.9 4.20-6.30 12.0-18.0 37.0-51.0 80-97 140-440 Adult F 4.1-10.9 4.04-5.48 12.0-18.0 37.0-51.0 80-97 140-440 0- 1 Yr 5.0-20.0 3.9-5.9 15-18 MV: 44 MV: 91 MV: 277 2-9 Yr. 6.0-17.0 3.8-5.4 11-13 MV: 37 MV: 78 MV: 300 10 Yrs. 5.0-13.0 3.8-5.4 12-15 MV: 39 MV: 80 MV: 250 NOTE: * FOR ADULT BLACK MALES AND FEMALES, NORMAL WBC IS 2.9-7.7 K/ML * FOR ADULT BLACK MALES AND FEMALES, NORMAL RBC,HGB, AND HCT IS 5% LESS SOURCE FOR DATA: [facility] 1800 OPERATION MANUAL( AUTOMATED BLOOD COUNTS AND DIFF.) APPENDIX B-3 RDW-CV 13.8 % 11.5-14.5 [facility] ([facility] CLASSIFICATION CHOLESTEROL FO R ADULTS CHILDREN/ADOLESCENTS* DESIRABLE: <200 MG/DL <170 MG/DL BORDER-LINE HIGH RISK: 200-239 MG/DL 170-199 MG/DL HIGH RISK: >240 MG/DL >200 MG/DL CLASS. FOR PRIMARY LDL CHOL PREVENTION: LDL CHOL-CHILD/ADOLESCENTS* DESIRABLE: <130 MG/DL <110 MG/DL BORDERLINE-HIGH RISK: 130-159 MG/DL 110-129 MG/DL HIGH RISK: >160 MG/DL >130 MG/DL *CHILDREN AND ADOLESCENTS REPRESENTS INDIVIDUALA AGED 2-19 YEARS EXCLUSIVE. CHRONIC KIDNEY DISEASE STAGING PER NKF: MALE [...] mL/min Normal 80 and above >32 mL/min NormalNORMAL RANGES Age WBC RBC HGB HCT MCV PLT Adult M 4.1-10.9 4.20-6.30 12.0-18.0 37.0-51.0 80-97 140-440 Adult F 4.1-10.9 4.04-5.48 12.0-18.0 37.0-51.0 80-97 140-440 0- 1 Yr 5.0-20.0 3.9-5.9 15-18 MV: 44 MV: 91 MV: 277 2-9 Yr. 6.0-17.0 3.8-5.4 11-13 MV: 37 MV: 78 MV: 300 10 Yrs. 5.0-13.0 3.8-5.4 12-15 MV: 39 MV: 80 MV: 250 NOTE: * FOR ADULT BLACK MALES AND FEMALES, NORMAL WBC IS 2.9-7.7 K/ML * FOR ADULT BLACK MALES AND FEMALES, NORMAL RBC,HGB, AND HCT IS 5% LESS SOURCE FOR DATA: [facility] 1800 OPERATION MANUAL( AUTOMATED BLOOD COUNTS AND DIFF.) APPENDIX B-3 PLT 108 10E3/uL 140-440 Below low normal [facility] CLASSIFICATION CHOLESTEROL FO R ADULTS CHILDREN/ADOLESCENTS* DESIRABLE: <200 MG/DL <170 MG/DL BORDER-LINE HIGH RISK: 200-239 MG/DL 170-199 MG/DL HIGH RISK: >240 MG/DL >200 MG/DL CLASS. FOR PRIMARY LDL CHOL PREVENTION: LDL CHOL-CHILD/ADOLESCENTS* DESIRABLE: <130 MG/DL <110 MG/DL BORDERLINE-HIGH RISK: 130-159 MG/DL 110-129 MG/DL HIGH RISK: >160 MG/DL >130 MG/DL *CHILDREN AND ADOLESCENTS REPRESENTS INDIVIDUALA AGED 2-19 YEARS EXCLUSIVE. CHRONIC KIDNEY DISEASE STAGING PER NKF: MALE [...] mL/min Normal 80 and above >32 mL/min NormalNORMAL RANGES Age WBC RBC HGB HCT MCV PLT Adult M 4.1-10.9 4.20-6.30 12.0-18.0 37.0-51.0 80-97 140-440 Adult F 4.1-10.9 4.04-5.48 12.0-18.0 37.0-51.0 80-97 140-440 0- 1 Yr 5.0-20.0 3.9-5.9 15-18 MV: 44 MV: 91 MV: 277 2-9 Yr. 6.0-17.0 3.8-5.4 11-13 MV: 37 MV: 78 MV: 300 10 Yrs. 5.0-13.0 3.8-5.4 12-15 MV: 39 MV: 80 MV: 250 NOTE: * FOR ADULT BLACK MALES AND FEMALES, NORMAL WBC IS 2.9-7.7 K/ML * FOR ADULT BLACK MALES AND FEMALES, NORMAL RBC,HGB, AND HCT IS 5% LESS SOURCE FOR DATA: [facility] 1800 OPERATION MANUAL( AUTOMATED BLOOD COUNTS AND DIFF.) APPENDIX B-3 Lym% 31.3 % 10.0-58.5 [facility] ([facility] CLASSIFICATION CHOLESTEROL FO R ADULTS CHILDREN/ADOLESCENTS* DESIRABLE: <200 MG/DL <170 MG/DL BORDER-LINE HIGH RISK: 200-239 MG/DL 170-199 MG/DL HIGH RISK: >240 MG/DL >200 MG/DL CLASS. FOR PRIMARY LDL CHOL PREVENTION: LDL CHOL-CHILD/ADOLESCENTS* DESIRABLE: <130 MG/DL <110 MG/DL BORDERLINE-HIGH RISK: 130-159 MG/DL 110-129 MG/DL HIGH RISK: >160 MG/DL >130 MG/DL *CHILDREN AND ADOLESCENTS REPRESENTS INDIVIDUALA AGED 2-19 YEARS EXCLUSIVE. CHRONIC KIDNEY DISEASE STAGING PER NKF: MALE [...] mL/min Normal 80 and above >32 mL/min NormalNORMAL RANGES Age WBC RBC HGB HCT MCV PLT Adult M 4.1-10.9 4.20-6.30 12.0-18.0 37.0-51.0 80-97 140-440 Adult F 4.1-10.9 4.04-5.48 12.0-18.0 37.0-51.0 80-97 140-440 0- 1 Yr 5.0-20.0 3.9-5.9 15-18 MV: 44 MV: 91 MV: 277 2-9 Yr. 6.0-17.0 3.8-5.4 11-13 MV: 37 MV: 78 MV: 300 10 Yrs. 5.0-13.0 3.8-5.4 12-15 MV: 39 MV: 80 MV: 250 NOTE: * FOR ADULT BLACK MALES AND FEMALES, NORMAL WBC IS 2.9-7.7 K/ML * FOR ADULT BLACK MALES AND FEMALES, NORMAL RBC,HGB, AND HCT IS 5% LESS SOURCE FOR DATA: [facility] 1800 OPERATION MANUAL( AUTOMATED BLOOD COUNTS AND DIFF.) APPENDIX B-3 MCHC 35.3 g/dL 31.0-36.0 [facility] ([facility] CLASSIFICATION CHOLESTEROL FO R ADULTS CHILDREN/ADOLESCENTS* DESIRABLE: <200 MG/DL <170 MG/DL BORDER-LINE HIGH RISK: 200-239 MG/DL 170-199 MG/DL HIGH RISK: >240 MG/DL >200 MG/DL CLASS. FOR PRIMARY LDL CHOL PREVENTION: LDL CHOL-CHILD/ADOLESCENTS* DESIRABLE: <130 MG/DL <110 MG/DL BORDERLINE-HIGH RISK: 130-159 MG/DL 110-129 MG/DL HIGH RISK: >160 MG/DL >130 MG/DL *CHILDREN AND ADOLESCENTS REPRESENTS INDIVIDUALA AGED 2-19 YEARS EXCLUSIVE. CHRONIC KIDNEY DISEASE STAGING PER NKF: MALE [...] mL/min Normal 80 and above >32 mL/min NormalNORMAL RANGES Age WBC RBC HGB HCT MCV PLT Adult M 4.1-10.9 4.20-6.30 12.0-18.0 37.0-51.0 80-97 140-440 Adult F 4.1-10.9 4.04-5.48 12.0-18.0 37.0-51.0 80-97 140-440 0- 1 Yr 5.0-20.0 3.9-5.9 15-18 MV: 44 MV: 91 MV: 277 2-9 Yr. 6.0-17.0 3.8-5.4 11-13 MV: 37 MV: 78 MV: 300 10 Yrs. 5.0-13.0 3.8-5.4 12-15 MV: 39 MV: 80 MV: 250 NOTE: * FOR ADULT BLACK MALES AND FEMALES, NORMAL WBC IS 2.9-7.7 K/ML * FOR ADULT BLACK MALES AND FEMALES, NORMAL RBC,HGB, AND HCT IS 5% LESS SOURCE FOR DATA: [employer] DYN 1800 OPERATION MANUAL( AUTOMATED BLOOD COUNTS AND DIFF.) APPENDIX B-3 MXD% 15.0 % 0.1-24.0 [facility] ([facility] CLASSIFICATION CHOLESTEROL FO R ADULTS CHILDREN/ADOLESCENTS* DESIRABLE: <200 MG/DL <170 MG/DL BORDER-LINE HIGH RISK: 200-239 MG/DL 170-199 MG/DL HIGH RISK: >240 MG/DL >200 MG/DL CLASS. FOR PRIMARY LDL CHOL PREVENTION: LDL CHOL-CHILD/ADOLESCENTS* DESIRABLE: <130 MG/DL <110 MG/DL BORDERLINE-HIGH RISK: 130-159 MG/DL 110-129 MG/DL HIGH RISK: >160 MG/DL >130 MG/DL *CHILDREN AND ADOLESCENTS REPRESENTS INDIVIDUALA AGED 2-19 YEARS EXCLUSIVE. CHRONIC KIDNEY DISEASE STAGING PER NKF: MALE [...] mL/min Normal 80 and above >32 mL/min NormalNORMAL RANGES Age WBC RBC HGB HCT MCV PLT Adult M 4.1-10.9 4.20-6.30 12.0-18.0 37.0-51.0 80-97 140-440 Adult F 4.1-10.9 4.04-5.48 12.0-18.0 37.0-51.0 80-97 140-440 0- 1 Yr 5.0-20.0 3.9-5.9 15-18 MV: 44 MV: 91 MV: 277 2-9 Yr. 6.0-17.0 3.8-5.4 11-13 MV: 37 MV: 78 MV: 300 10 Yrs. 5.0-13.0 3.8-5.4 12-15 MV: 39 MV: 80 MV: 250 NOTE: * FOR ADULT BLACK MALES AND FEMALES, NORMAL WBC IS 2.9-7.7 K/ML * FOR ADULT BLACK MALES AND FEMALES, NORMAL RBC,HGB, AND HCT IS 5% LESS SOURCE FOR DATA: [employer] DYN 1800 OPERATION MANUAL( AUTOMATED BLOOD COUNTS AND DIFF.) APPENDIX B-3 Lym# 1.6 10E3/uL 0.6-4.1 [facility] ([facility] CLASSIFICATION CHOLESTEROL FO R ADULTS CHILDREN/ADOLESCENTS* DESIRABLE: <200 MG/DL <170 MG/DL BORDER-LINE HIGH RISK: 200-239 MG/DL 170-199 MG/DL HIGH RISK: >240 MG/DL >200 MG/DL CLASS. FOR PRIMARY LDL CHOL PREVENTION: LDL CHOL-CHILD/ADOLESCENTS* DESIRABLE: <130 MG/DL <110 MG/DL BORDERLINE-HIGH RISK: 130-159 MG/DL 110-129 MG/DL HIGH RISK: >160 MG/DL >130 MG/DL *CHILDREN AND ADOLESCENTS REPRESENTS INDIVIDUALA AGED 2-19 YEARS EXCLUSIVE. CHRONIC KIDNEY DISEASE STAGING PER NKF: MALE [...] mL/min Normal 80 and above >32 mL/min NormalNORMAL RANGES Age WBC RBC HGB HCT MCV PLT Adult M 4.1-10.9 4.20-6.30 12.0-18.0 37.0-51.0 80-97 140-440 Adult F 4.1-10.9 4.04-5.48 12.0-18.0 37.0-51.0 80-97 140-440 0- 1 Yr 5.0-20.0 3.9-5.9 15-18 MV: 44 MV: 91 MV: 277 2-9 Yr. 6.0-17.0 3.8-5.4 11-13 MV: 37 MV: 78 MV: 300 10 Yrs. 5.0-13.0 3.8-5.4 12-15 MV: 39 MV: 80 MV: 250 NOTE: * FOR ADULT BLACK MALES AND FEMALES, NORMAL WBC IS 2.9-7.7 K/ML * FOR ADULT BLACK MALES AND FEMALES, NORMAL RBC,HGB, AND HCT IS 5% LESS SOURCE FOR DATA: [employer] DYN 1800 OPERATION MANUAL( AUTOMATED BLOOD COUNTS AND DIFF.) APPENDIX B-3 Neut% 53.7 % 37.0-92.0 [facility] ([facility] CLASSIFICATION CHOLESTEROL FO R ADULTS CHILDREN/ADOLESCENTS* DESIRABLE: <200 MG/DL <170 MG/DL BORDER-LINE HIGH RISK: 200-239 MG/DL 170-199 MG/DL HIGH RISK: >240 MG/DL >200 MG/DL CLASS. FOR PRIMARY LDL CHOL PREVENTION: LDL CHOL-CHILD/ADOLESCENTS* DESIRABLE: <130 MG/DL <110 MG/DL BORDERLINE-HIGH RISK: 130-159 MG/DL 110-129 MG/DL HIGH RISK: >160 MG/DL >130 MG/DL *CHILDREN AND ADOLESCENTS REPRESENTS INDIVIDUALA AGED 2-19 YEARS EXCLUSIVE. CHRONIC KIDNEY DISEASE STAGING PER NKF: MALE [...] mL/min Normal 80 and above >32 mL/min NormalNORMAL RANGES Age WBC RBC HGB HCT MCV PLT Adult M 4.1-10.9 4.20-6.30 12.0-18.0 37.0-51.0 80-97 140-440 Adult F 4.1-10.9 4.04-5.48 12.0-18.0 37.0-51.0 80-97 140-440 0- 1 Yr 5.0-20.0 3.9-5.9 15-18 MV: 44 MV: 91 MV: 277 2-9 Yr. 6.0-17.0 3.8-5.4 11-13 MV: 37 MV: 78 MV: 300 10 Yrs. 5.0-13.0 3.8-5.4 12-15 MV: 39 MV: 80 MV: 250 NOTE: * FOR ADULT BLACK MALES AND FEMALES, NORMAL WBC IS 2.9-7.7 K/ML * FOR ADULT BLACK MALES AND FEMALES, NORMAL RBC,HGB, AND HCT IS 5% LESS SOURCE FOR DATA: [employer] DYN 1800 OPERATION MANUAL( AUTOMATED BLOOD COUNTS AND DIFF.) APPENDIX B-3 MXD# 0.8 10E3/uL 0.0-1.8 [facility] ([facility] CLASSIFICATION CHOLESTEROL FO R ADULTS CHILDREN/ADOLESCENTS* DESIRABLE: <200 MG/DL <170 MG/DL BORDER-LINE HIGH RISK: 200-239 MG/DL 170-199 MG/DL HIGH RISK: >240 MG/DL >200 MG/DL CLASS. FOR PRIMARY LDL CHOL PREVENTION: LDL CHOL-CHILD/ADOLESCENTS* DESIRABLE: <130 MG/DL <110 MG/DL BORDERLINE-HIGH RISK: 130-159 MG/DL 110-129 MG/DL HIGH RISK: >160 MG/DL >130 MG/DL *CHILDREN AND ADOLESCENTS REPRESENTS INDIVIDUALA AGED 2-19 YEARS EXCLUSIVE. CHRONIC KIDNEY DISEASE STAGING PER NKF: MALE [...] mL/min Normal 80 and above >32 mL/min NormalNORMAL RANGES Age WBC RBC HGB HCT MCV PLT Adult M 4.1-10.9 4.20-6.30 12.0-18.0 37.0-51.0 80-97 140-440 Adult F 4.1-10.9 4.04-5.48 12.0-18.0 37.0-51.0 80-97 140-440 0- 1 Yr 5.0-20.0 3.9-5.9 15-18 MV: 44 MV: 91 MV: 277 2-9 Yr. 6.0-17.0 3.8-5.4 11-13 MV: 37 MV: 78 MV: 300 10 Yrs. 5.0-13.0 3.8-5.4 12-15 MV: 39 MV: 80 MV: 250 NOTE: * FOR ADULT BLACK MALES AND FEMALES, NORMAL WBC IS 2.9-7.7 K/ML * FOR ADULT BLACK MALES AND FEMALES, NORMAL RBC,HGB, AND HCT IS 5% LESS SOURCE FOR DATA: [employer] [facility] 1800 OPERATION MANUAL( AUTOMATED BLOOD COUNTS AND DIFF.) APPENDIX B-3 Neut# 2.7 % 2.0-7.8 [facility] CLASSIFICATION CHOLESTEROL FO R ADULTS CHILDREN/ADOLESCENTS* DESIRABLE: <200 MG/DL <170 MG/DL BORDER-LINE HIGH RISK: 200-239 MG/DL 170-199 MG/DL HIGH RISK: >240 MG/DL >200 MG/DL CLASS. FOR PRIMARY LDL CHOL PREVENTION: LDL CHOL-CHILD/ADOLESCENTS* DESIRABLE: <130 MG/DL <110 MG/DL BORDERLINE-HIGH RISK: 130-159 MG/DL 110-129 MG/DL HIGH RISK: >160 MG/DL >130 MG/DL *CHILDREN AND ADOLESCENTS REPRESENTS INDIVIDUALA AGED 2-19 YEARS EXCLUSIVE. CHRONIC KIDNEY DISEASE STAGING PER NKF: MALE [...] mL/min Normal 80 and above >32 mL/min NormalNORMAL RANGES Age WBC RBC HGB HCT MCV PLT Adult M 4.1-10.9 4.20-6.30 12.0-18.0 37.0-51.0 80-97 140-440 Adult F 4.1-10.9 4.04-5.48 12.0-18.0 37.0-51.0 80-97 140-440 0- 1 Yr 5.0-20.0 3.9-5.9 15-18 MV: 44 MV: 91 MV: 277 2-9 Yr. 6.0-17.0 3.8-5.4 11-13 MV: 37 MV: 78 MV: 300 10 Yrs. 5.0-13.0 3.8-5.4 12-15 MV: 39 MV: 80 MV: 250 NOTE: * FOR ADULT BLACK MALES AND FEMALES, NORMAL WBC IS 2.9-7.7 K/ML * FOR ADULT BLACK MALES AND FEMALES, NORMAL RBC,HGB, AND HCT IS 5% LESS SOURCE FOR DATA: [facility] 1800 OPERATION MANUAL( AUTOMATED BLOOD COUNTS AND DIFF.) APPENDIX B-3 MPV 10.2 fL 9.0-13.0 [facility] CLASSIFICATION CHOLESTEROL FO R ADULTS CHILDREN/ADOLESCENTS* DESIRABLE: <200 MG/DL <170 MG/DL BORDER-LINE HIGH RISK: 200-239 MG/DL 170-199 MG/DL HIGH RISK: >240 MG/DL >200 MG/DL CLASS. FOR PRIMARY LDL CHOL PREVENTION: LDL CHOL-CHILD/ADOLESCENTS* DESIRABLE: <130 MG/DL <110 MG/DL BORDERLINE-HIGH RISK: 130-159 MG/DL 110-129 MG/DL HIGH RISK: >160 MG/DL >130 MG/DL *CHILDREN AND ADOLESCENTS REPRESENTS INDIVIDUALA AGED 2-19 YEARS EXCLUSIVE. CHRONIC KIDNEY DISEASE STAGING PER NKF: MALE [...] mL/min Normal 80 and above >32 mL/min NormalNORMAL RANGES Age WBC RBC HGB HCT MCV PLT Adult M 4.1-10.9 4.20-6.30 12.0-18.0 37.0-51.0 80-97 140-440 Adult F 4.1-10.9 4.04-5.48 12.0-18.0 37.0-51.0 80-97 140-440 0- 1 Yr 5.0-20.0 3.9-5.9 15-18 MV: 44 MV: 91 MV: 277 2-9 Yr. 6.0-17.0 3.8-5.4 11-13 MV: 37 MV: 78 MV: 300 10 Yrs. 5.0-13.0 3.8-5.4 12-15 MV: 39 MV: 80 MV: 250 NOTE: * FOR ADULT BLACK MALES AND FEMALES, NORMAL WBC IS 2.9-7.7 K/ML * FOR ADULT BLACK MALES AND FEMALES, NORMAL RBC,HGB, AND HCT IS 5% LESS SOURCE FOR DATA: [facility] 1800 OPERATION MANUAL( AUTOMATED BLOOD COUNTS AND DIFF.) APPENDIX B-3 ID Date Data Source [id number] 06/18/2019 09:05:00 AM EST [facility] ([facility] Name Value Range Interpretation Code Description Data Daly rce(s) Supporting Document(s) Hemoglobin A1c/Hemoglobin.total in Blood 6.6 % 4.40-6.10 Above high normal [facility] ([facility] Procedure Social History Code Duration Value Status Description Data Source(s ) Smoking 06/17/2020 12:00:00 AM EST Never Smoker completed Never S moker eCW1 ([facility]) Smoking 06/17/2020 12:00:00 AM EST Never Smoker completed Never S moker eCW1 ([facility]) Smoking 06/17/2020 12:00:00 AM EST Never Smoker completed Never S moker eCW1 ([facility]) Vital Signs ID Date Data Source UNK Name Value Range Interpretation Code Description Data Source(s) Oxygen saturation in Arterial blood by Pulse oximetry 96 % 96 % [facility] ([facility] Body mass index (BMI) [Ratio] 37.3 kg/m2 37.3 k g/m2 [facility] ([facility] [place] body weight 184 [lb_av] 184 [lb_av] MED[facility] T ([facility] Body weight 283.00 [lb_av] 283.00 [lb_av] MED[facility] T ([facility] Body height 73 [in_i] 73 [in_i] [facility] ([facility] 6'1" Respiratory rate 16 /min 16 /min [facility] ( [facility] Heart rate 93 /min 93 /min [facility] ([facility] Body temperature 97.7 [degF] 97.7 [degF] [facility] ([facility] Diastolic blood pressure 78 mm[Hg] 78 mm[Hg] [facility] ([facility] Systolic blood pressure 116 mm[Hg] 116 mm[Hg] M EDENT ([facility] Oxygen saturation in Arterial blood by Pulse oximetry 96 % 96 % [facility] ([facility] Body mass index (BMI) [Ratio] 37.5 kg/m2 37.5 k g/m2 [facility] ([facility] [place] body weight 184 [lb_av] 184 [lb_av] MEDEN T ([facility] Body weight 284.00 [lb_av] 284.00 [lb_av] MEDEN T ([facility] Body height 73 [in_i] 73 [in_i] [facility] ([facility] 6'1" Respiratory rate 16 /min 16 /min [facility] ( [facility] Heart rate 83 /min 83 /min [facility] ([facility] Body temperature 97.8 [degF] 97.8 [degF] [facility] ([facility] Diastolic blood pressure 74 mm[Hg] 74 mm[Hg] [facility] ([facility] Systolic blood pressure 116 mm[Hg] 116 mm[Hg] M EDENT ([facility] Diastolic blood pressure 84 mm[Hg] 84 mm[Hg] eCW1 ([facility]) Systolic blood pressure 142 mm[Hg] 142 mm[Hg] e CW1 ([facility]) Body temperature 97.5 [degF] 97.5 [degF] eCW1 ( [facility]) Respiratory rate 18 /min 18 /min eCW1 ([facility]) Heart rate 61 /min 61 /min eCW1 ([facility]) Body mass index (BMI) [Ratio] 39.06 kg/m2 39.06 kg/m2 eCW1 ([facility]) Body height [in_i] eCW1 ([facility] Body weight 288 [lb_av] 288 [lb_av] eCW1 ([facility]) Body surface area Derived from formula 2.44 m2 2.44 m2 [facility] ([facility]) Body mass index (BMI) [Ratio] 35.6 kg/m2 35.6 k g/m2 [facility] ([facility]) Body height 73 [in_i] 73 [in_i] [facility] ([facility]) 6'1" Body weight 122.472 kg 122.472 kg [facility] ([facility]) Body weight 270.00 [lb_av] 270.00 [lb_av] MEDEN T ([facility]) Respiratory rate 16 /min 16 /min [facility] ( [facility]) Body temperature 98.6 [degF] 98.6 [degF] [facility] ([facility]) Heart rate 75 /min 75 /min [facility] ([facility]) Diastolic blood pressure 86 mm[Hg] 86 mm[Hg] [facility] ([facility]) Systolic blood pressure 144 mm[Hg] 144 mm[Hg] M EDENT ([facility]) Oxygen saturation in Arterial blood by Pulse oximetry 97 % 97 % [facility] ([facility] Body mass index (BMI) [Ratio] 37.3 kg/m2 37.3 k g/m2 [facility] ([facility] [place] body weight 184 [lb_av] 184 [lb_av] MEDEN T ([facility] Body weight 283.00 [lb_av] 283.00 [lb_av] MEDEN T ([facility] Body height 73 [in_i] 73 [in_i] [facility] ([facility] 6'1" Respiratory rate 16 /min 16 /min [facility] ( [facility] Heart rate 79 /min 79 /min [facility] ([facility] Body temperature 98.3 [degF] 98.3 [degF] [facility] ([facility] Diastolic blood pressure 84 mm[Hg] 84 mm[Hg] [facility] ([facility] Systolic blood pressure 134 mm[Hg] 134 mm[Hg] M EDENT ([facility] Oxygen saturation in Arterial blood by Pulse oximetry 95 % 95 % [facility] ([facility] Body mass index (BMI) [Ratio] 36.0 kg/m2 36.0 k g/m2 [facility] ([facility] [place] body weight 184 [lb_av] 184 [lb_av] MEDEN T ([facility] Body weight 273.00 [lb_av] 273.00 [lb_av] MEDEN T ([facility] Body height 73 [in_i] 73 [in_i] [facility] ([facility] 6'1" Respiratory rate 18 /min 18 /min [facility] ( [facility] Heart rate 80 /min 80 /min [facility] ([facility] Body temperature 97.4 [degF] 97.4 [degF] [facility] ([facility] Diastolic blood pressure 76 mm[Hg] 76 mm[Hg] [facility] ([facility] Systolic blood pressure 116 mm[Hg] 116 mm[Hg] M EDENT ([facility] Oxygen saturation in Arterial blood by Pulse oximetry 97 % 97 % [facility] ([facility] Body mass index (BMI) [Ratio] 36.7 kg/m2 36.7 k g/m2 [facility] ([facility] [place] body weight 184 [lb_av] 184 [lb_av] MEDEN T ([facility] Body weight 278.00 [lb_av] 278.00 [lb_av] MEDEN T ([facility] Body height 73 [in_i] 73 [in_i] [facility] ([facility] 6'1" Respiratory rate 16 /min 16 /min [facility] ( [facility] Heart rate 88 /min 88 /min [facility] ([facility] Body temperature 98.9 [degF] 98.9 [degF] [facility] ([facility] Diastolic blood pressure 78 mm[Hg] 78 mm[Hg] [facility] ([facility] Systolic blood pressure 112 mm[Hg] 112 mm[Hg] M EDENT ([facility] Oxygen saturation in Arterial blood by Pulse oximetry 97 % 97 % [facility] ([facility] Body mass index (BMI) [Ratio] 37.1 kg/m2 37.1 k g/m2 [facility] ([facility] Body weight 281.00 [lb_av] 281.00 [lb_av] TOYAEN T ([facility] Body height 73 [in_i] 73 [in_i] [facility]ATA ([facility] 6'1" Respiratory rate 16 /min 16 /min RENATA ( [facility] Heart rate 75 /min 75 /min [facility] ([facility] Body temperature 98.8 [degF] 98.8 [degF] [facility] ([facility] Diastolic blood pressure 86 mm[Hg] 86 mm[Hg] [facility] ([facility] Systolic blood pressure 122 mm[Hg] 122 mm[Hg] M NATALIE ([facility] ID Date Data Source [id number] 06/27/2020 11:11:15 AM EST [facility] Name Value Range Interpretation Code Description Data Source(s) WEIGHT RECORDED 270.00 pounds 270.00 pounds [facility] Height 73 Inches 073 Inches [facility]
[2020-07-21] MEDS ORDERED: LIDOCAINE 2% 100MG/5ML SDV (FOR ANES.) As Ordered ONE (07:14)
[2020-07-21] MEDS ORDERED: propofoL 200 MG/20 ML VIAL As Ordered ONE (07:14)
[2020-07-21] MEDS ORDERED: MIDAZOLAM INJ 2MG/2ML VIAL (J2250 PER 1MG) As Ordered ONE (07:15)
[2020-07-21] MEDS ORDERED: fentaNYL 100 MCG/2 ML INJECTION (J3010) As Ordered ONE (07:15)
[2020-07-21] MEDS: ceFAZolin SOD 2 GM in IV 1 EA IV ONE (07:34)
[2020-07-21] MEDS ORDERED: OXYC1TAB23 PO (08:04)
[2020-07-21] MEDS ORDERED: FLOM0.4C39 PO (08:04)
--- NOTE | 2020-07-21 08:20 | ROOPDOC ---
[facility] Report Of Operation Report of Operation DATE OF PROCEDURE: 07/21/20 PREPROCEDURE DIAGNOSIS: Right kidney stone. POSTPROCEDURE DIAGNOSIS: Right kidney stone. PROCEDURE: Right extracorporeal shock wave lithotripsy. SURGEON: Dr. Mark Galan LICENSED AND CERTIFIED MIDWIFE: None. ANESTHESIA: Monitored anesthesia care (MAC). OPERATIVE INDICATIONS: This is a 65-year-old male who was found to have an approximately 1cm nonobstructing right kidney stone. He is brought to the operating room today for the above-listed procedure. DESCRIPTION OF PROCEDURE: The patient brought to the operating room, and MAC anesthesia was administered. Prophylactic antibiotics were infused. He was then placed in supine position in preparation for a right-sided extracorporeal shock wave lithotripsy. Fluoroscopy was utilized to monitor stone position and fragmentation of the procedure. Shock waves were then delivered to the right-sided kidney stone ungated. There were no arrhythmias. The stone did appear to fragment. After 2500 shocks, the procedure was concluded. The patient was then awakened from anesthesia and transported to the recovery room in stable condition. ESTIMATED BLOOD LOSS: 0 mL. COMPLICATIONS: None. SPECIMENS: None. PLAN: The patient will followup in clinic in a few weeks with imaging prior to assess for residual stone burden. MARK GALAN MD Jul 21, 2020 08:20
[2020-07-21] MEDS ORDERED: LR 1,000 ML IV SCH (08:45)
[2020-07-21] MEDS ORDERED: PERCOCET 5MG/325MG TAB PO PRN ×2 (08:45→09:00)
[2020-07-21] MEDS ORDERED: ONDANSETRON 4MG/2ML VIAL IV PRN (08:45)
[2020-07-21 09:00] VITALS: BP 137/79
--- NOTE | 2020-07-22 04:49 | REP ---
INDICATION: KUB PRIOR TO SDC COMPARISON: None. TECHNIQUE: Supine view of the abdomen and pelvis. FINDINGS: 12 mm nonobstructing right renal calculus and 2-3 mm nonobstructing left renal calculi identified. Further evaluation of the urinary tract system is limited due to overlying bowel gas. No bowel obstruction. Mild fecal stasis suggested. No organomegaly. Skeletal structures demonstrate age-related degenerative changes. IMPRESSION: Bilateral intrarenal calculi (right greater than left). <Electronically signed by Reyanldo Bryant > 07/22/20 [id number]
== END 2020-07-21 09:40 | disposition home or self-care (01) ==
LOC: M SDC 06:09
PROVIDERS: ATTEND Urology
DX: N20.0 Calculus of kidney (principal); E11.9 Type 2 diabetes mellitus without complications; I10 Essential (primary) hypertension; E03.9 Hypothyroidism, unspecified; G47.30 Sleep apnea, unspecified; E78.5 Hyperlipidemia, unspecified; K21.9 Gastro-esophageal reflux disease without esophagitis; M10.9 Gout, unspecified; Z79.84 Long term (current) use of oral hypoglycemic drugs; Z79.899 Other long term (current) drug therapy
CPT/HCPCS: 50590; 74018; J0690; J2250; J3010

== ENCOUNTER → 2020-08-30 | Outpatient (CLI) | payer MEDICARE ==
[~2020-08-30] MED LIST changes: +FLOM0.4C39 PO; -LR 1,000 ML IV ONE; +OXYC1TAB23 PO
--- NOTE | 2020-08-31 10:17 | REPPI ---
INDICATION: N20.0 KIDNEY STONES. COMPARISON: 07/21/2020. TECHNIQUE: Two AP views abdomen and pelvis. FINDINGS: At the site of the large right renal calculus on the prior study there is a smaller calcification now seen measuring about 9 x 3 mm. A cluster of 2 or 3 calcifications are again visualized overlying the lower left renal shadow. Bowel gas pattern is normal. There are degenerative changes of the spine. IMPRESSION: At the site of the large right renal calcification on the prior study there is a smaller calcification now visualized approximately 9 x 3 mm. There are 3 subcentimeter calcifications again seen overlying the lower left renal shadow. <Electronically signed by Daniel Muniz > 08/31/20 [id number]
== END ==
LOC: M PLAIMG 14:03
PROVIDERS: ATTEND Urology
DX: N20.0 Calculus of kidney (principal)

== ENCOUNTER → 2021-08-30 | Outpatient (CLI) | payer MEDICARE ==
[~2021-08-30] MED LIST changes: +AMLO1TAB24 PO; +AMOX500C; +OLME1TAB53 PO
== END ==
LOC: M RAD 08:39
PROVIDERS: ATTEND Internal Medicine Hematology & Oncology
DX: D69.6 Thrombocytopenia, unspecified (principal)

== ENCOUNTER → 2021-09-12 | Outpatient (CLI) | payer MEDICARE ==
[~2021-09-12] MED LIST changes: -D31000TA2 PO; +VITA100093 PO
== END ==
LOC: M PLAIMG 14:15
PROVIDERS: ATTEND Urology
DX: N20.0 Calculus of kidney (principal)

== ENCOUNTER → 2022-02-01 | Outpatient (CLI) | payer MEDICARE ==
[~2022-02-01] MED LIST changes: +LIDOCAINE 1% MDV 20ML VIAL As Ordered ONE
[2022-02-01 13:28] VITALS: BP 114/68
[2022-02-01 13:47] LABS: BASO % 0.5 % (0.0-1.0); EOS # 0.1 10^3/uL (0.0-0.5); EOS % 2.4 % (0.0-3.0); HEMOGLOBIN 17.3 g/dl (13.5-17.5); LYMPH # 1.9 10^3/uL (1.5-5.0); LYMPH % 31.4 % (24.0-44.0); MEAN CORPUSCULAR HEMOGLOBIN 32.2 pg (27.0-33.0); MEAN CORPUSCULAR HGB CONC 35.3 g/dl (32.0-36.5); MEAN CORPUSCULAR VOLUME 91.2 fl (80.0-96.0); MONO # 0.5 10^3/uL (0.0-0.8); MONO % 8.2 % (2.0-8.0); NEUTROPHILS # 3.4 10^3/uL (1.5-8.5); NEUTROPHILS % 57.2 % (36.0-66.0); RED BLOOD COUNT 5.37 10^6/uL (4.30-6.10)
[2022-02-01 13:51] LABS: PLATELET COUNT, AUTOMATED 91 10^3/uL (150-450)
== END ==
LOC: M IRPRO 12:11
PROVIDERS: ATTEND Nurse Practitioner
DX: D69.6 Thrombocytopenia, unspecified (principal)

== ENCOUNTER → 2022-10-02 | Outpatient (CLI) | payer MEDICARE ==
[~2022-10-02] MED LIST changes: -LIDOCAINE 1% MDV 20ML VIAL As Ordered ONE
[2022-10-02 18:13] LABS: APPEARANCE, URINE CLEAR (CLEAR); BACTERIA, URINE AUTO NEGATIVE (NEGATIVE); BILIRUBIN, URINE AUTO NEGATIVE (NEGATIVE); BLOOD, URINE BLOOD NEGATIVE (NEGATIVE); COLOR, URINE YELLOW (YELLOW); GLUCOSE, URINE (UA) AUTO 3+ mg/dL (NEGATIVE); KETONE, URINE AUTO NEGATIVE (NEGATIVE); LEUKOCYTE ESTERASE, URINE AUTO NEGATIVE (NEGATIVE); NITRITE, URINE AUTO NEGATIVE (NEGATIVE); PROTEIN, URINE AUTO NEGATIVE (NEGATIVE); RBC, URINE AUTO 1 /HPF (0-3); SPECIFIC GRAVITY URINE AUTO 1.036 (1.002-1.035); SQUAMOUS EPITHELIAL CELL UR AU 0 /HPF (0-6); UROBILINOGEN, URINE AUTO 0.2 mg/dL (0.0-2.0); WBC, URINE AUTO 0 /HPF (0-3)
== END ==
LOC: M PLAIMG 13:10
PROVIDERS: ATTEND Physician Assistant
DX: R31.21 Asymptomatic microscopic hematuria (principal); N20.0 Calculus of kidney; M51.36 Other intervertebral disc degeneration, lumbar region

== ENCOUNTER → 2023-10-04 | Outpatient (CLI) | payer MEDICARE ==
[~2023-10-04] MED LIST changes: +PENI500T; +POTA-151 PO; +SEMA1PEN2
== END ==
LOC: M PLAIMG 14:37
PROVIDERS: ATTEND Physician Assistant
DX: N20.0 Calculus of kidney (principal)

== ENCOUNTER → 2024-10-05 | Outpatient (CLI) | payer MEDICARE ==
[~2024-10-05] MED LIST changes: -OLME1TAB53 PO; +OLME1TAB54 PO
== END ==
LOC: M PLAIMG 14:11
PROVIDERS: ATTEND Physician Assistant
DX: K59.00 Constipation, unspecified (principal); M47.9 Spondylosis, unspecified; Z96.641 Presence of right artificial hip joint; N20.0 Calculus of kidney